=== PATIENT | male | born 1970 | race African-American/Black ===

== ENCOUNTER 2023-03-03 07:22 | Emergency (ER) | payer OTHER ==
--- OUTSIDE RECORDS SUMMARY | 2023-03-03 07:28 | XMS REPORT | Continuity of Care Document ---
:1970 Author Organization [facility] t Address [address] [facility] [place] [address] Care Team Providers Name Role Phone Teddy Irvin Primary Care Physician Carleen Lemus DO Attending Clinician CARLEEN LEMUS Attending Clinician Unavailable Doctor Unassigned, [place] Attending Clinician Unavailable Raulito DENNISON Attending Clinician Unavailable Raulito Cota Attending Clinician SARAH CHAVIS Attending Clinician Unavailable Sarah Chavis MD Attending Clinician CHET GAONA Attending Clinician Unavailable Raulito DENNISON Admitting Clinician Unavailable CHET GAONA Admitting Clinician Unavailable Payers Payer Name Policy Type Policy Number Effective Date Expiration Date S [facility] MEDICAID SSI PENDING 2021 PENDING 00:00:00 Problems Condition Condition Condition Status Onset Resolution Last Treating Co mments Source Name Details Category Date Date Treatment Clinician Date No known No known Disease Unive rs active active ity of problems problems [facility] Allergies, Adverse Reactions, Alerts Allergy Allergy Status Severity Reaction(s) Onset Inactive Treating Comm ents Source Name Type Date Date Clinician Morphine Propensi Active and ty to 9-12 Related adverse 00:00: - CLASS reaction 00 to drug Morphine Propensi Active ty to 4-12 adverse 00:00: reaction 00 to drug MORPHINE DRUG Active HYPERTENSION 2017-09 Un russell INGREDI 0-22 ity of 00:00: [place] 00 Medical Branch Morphine Propensi Active Hypertension 2017-09 Univers ty to 0-22 ity of adverse 00:00: [place] reaction 00 Medical s Branch Social History Social Habit Start Date Stop Date Quantity Comments Source Exposure to 2022-09-13 2022-09-23 Not sure [facility] SARS-CoV-2 (event) 00:00:00 16:06:00 Medica l Branch Sex Assigned At [birth year] [facility] 00:00:00 00:00:00 Medical Branch Smoking Status Start Date Stop Date Source Tobacco smoking consumption [facility] Medical unknown Branch Medications Ordered Filled Start Stop Current Ordering Indication Dosage Frequency Signature Comments Components Source Medication Medication Date Date Medication? Clinician (SIG) Name Name Dose 2021-09 No Unknown 2-14 00:00: 00 Dose 2021-09 No Unknown 2-14 00:00: 00 methylpredn 2021-2021- No 125mg 125 mg, U nivers isolone sod 5-04 05-04 Intramuscu i ty of succ 02:15: 01:20 lar, ONCE, [place] (SOLU-MEDRO 00 :00 1 dose, On Me dical L) 01/08/22 Branch injection at 2115, 125 mg HERMES Dose 0 No Unknown 4-16 00:00: 00 carvedilol 2021-0 No 1mg 25 mg 4-16 tablet 00:00: 00 Dose 2021-0 No Unknown 4-16 00:00: 00 Dose 2021-0 No Unknown 4-16 00:00: 00 Entresto 24 0 No 1mg mg-26 mg 4-16 tablet 00:00: 00 carvedilol 2021-0 No 1mg 25 mg 4-16 tablet 00:00: 00 Dose 2021-0 No Unknown 3-15 00:00: 00 Dose 2021-0 No Unknown 3-15 00:00: 00 Dose 2021-0 No Unknown 3-15 00:00: 00 Dose 2021-0 No Unknown 3-15 00:00: 00 Dose 2021-0 No Unknown 3-15 00:00: 00 Dose 2021-0 No Unknown 3-15 00:00: 00 Dose 2021-0 No Unknown 3-15 00:00: 00 Dose 2021-0 No Unknown 3-15 00:00: 00 Dose 2021-0 No Unknown 3-15 00:00: 00 amoxicillin 2020-09 Yes [id number] 500mg Take 1 Univers 500 mg 2-24 capsule by ity of capsule 00:00: mouth (three) Medical times Branch daily. benzonatate 2020-09 Yes [id number] 100mg Take 1 Univers 100 mg 2-24 capsule by ity of capsule 00:00: mouth (three) Medical times Branch daily as needed for Cough. amoxicillin 2020-09 Yes [id number] 500mg Take 1 Univers 500 mg 2-24 capsule by ity of capsule 00:00: mouth (three) Medical times Branch daily. benzonatate 2020-09 Yes [id number] 100mg Take 1 Univers 100 mg 2-24 capsule by ity of capsule 00:00: mouth (three) Medical times Branch daily as needed for Cough. amoxicillin 2020-09 Yes [id number] 500mg Take 1 Univers 500 mg 2-24 capsule by ity of capsule 00:00: mouth (three) Medical times Branch daily. benzonatate 2020-09 Yes [id number] 100mg Take 1 Univers 100 mg 2-24 capsule by ity of capsule 00:00: mouth (three) Medical times Branch daily as needed for Cough. amoxicillin 2020-09 Yes [id number] 500mg Take 1 Univers 500 mg 2-24 capsule by ity of capsule 00:00: mouth (three) Medical times Branch daily. benzonatate 2020-09 Yes [id number] 100mg Take 1 Univers 100 mg 2-24 capsule by ity of capsule 00:00: mouth (three) Medical times Branch daily as needed for Cough. carvedilol No 1mg 25 mg 9-15 tablet 00:00: 00 Dose 2020-0 No Unknown 9-15 00:00: 00 Dose 2021-0 No Unknown 9-15 00:00: 00 Dose 2021-0 No Unknown 9-15 00:00: 00 carvedilol 2021-0 No 1mg 25 mg 9-15 tablet 00:00: 00 Entresto 24 2021-0 No 1mg mg-26 mg 9-15 tablet 00:00: 00 Dose 2021-0 No Unknown 7-14 00:00: 00 cyclobenzap 2021-0 No 1mg rine 10 mg 7-14 tablet 00:00: 00 Dose 2021-0 No Unknown 7-14 00:00: 00 Dose 2021-0 No Unknown 7-14 00:00: 00 prednisone 2021-0 No 1mg 20 mg 7-14 tablet 00:00: 00 cyclobenzap 2021-0 No 1mg rine 10 mg 7-14 tablet 00:00: 00 carvedilol 2021-0 No 1mg 25 mg 3-18 tablet 00:00: 00 carvedilol 2021-0 No 1mg 25 mg 3-18 tablet 00:00: 00 carvedilol 2021-0 No 1mg 25 mg 3-18 tablet 00:00: 00 carvedilol 2021-0 No 1mg 25 mg 2-04 tablet 00:00: 00 carvedilol 2021-0 No 1mg 25 mg 2-04 tablet 00:00: 00 carvedilol 2021-0 No 1mg 25 mg 2-04 tablet 00:00: 00 lisinopril 2020-1 No 1mg 20 mg 2-28 tablet 00:00: 00 carvedilol 2020-1 No 1mg 25 mg 2-28 tablet 00:00: 00 omeprazole 2020-1 No 1mg 40 mg 2-28 capsule,del 00:00: ayed 00 release lisinopril 2020-1 No 1mg 20 mg 2-28 tablet 00:00: 00 lisinopril 2020-1 No 1mg 20 mg 2-28 tablet 00:00: 00 carvedilol 2020-1 No 1mg 25 mg 2-28 tablet 00:00: 00 Dose 2020-1 No Unknown 2-28 00:00: 00 carvedilol 2020-1 No 1mg 25 mg 2-28 tablet 00:00: 00 omeprazole 2020-1 No 1mg 40 mg 2-28 capsule,del 00:00: ayed 00 release lisinopril 2020-1 No 1mg 20 mg 1-13 tablet 00:00: 00 carvedilol 2020-1 No 1mg 25 mg 1-13 tablet 00:00: 00 omeprazole 2020-1 No 1mg 40 mg 1-13 capsule,del 00:00: ayed 00 release lisinopril 2020-1 No 1mg 20 mg 1-13 tablet 00:00: 00 carvedilol 2020-1 No 1mg 25 mg 1-13 tablet 00:00: 00 omeprazole 2020-1 No 1mg 40 mg 1-13 capsule,del 00:00: ayed 00 release lisinopril 2020-1 No 1mg 20 mg 1-13 tablet 00:00: 00 carvedilol 2020-1 No 1mg 25 mg 1-13 tablet 00:00: 00 omeprazole 2019-1 No 1mg 40 mg 1-13 capsule,del 00:00: ayed 00 release omeprazole 2019-1 No 1mg 40 mg 0-13 capsule,del 00:00: ayed 00 release omeprazole 2019-1 No 1mg 40 mg 0-13 capsule,del 00:00: ayed 00 release omeprazole 2020-1 No 1mg 40 mg 0-13 capsule,del 00:00: ayed 00 release lisinopril 2020-0 No 1mg 20 mg 7-08 tablet 00:00: 00 carvedilol 2020-0 No 1mg 25 mg 7-08 tablet 00:00: 00 lisinopril 2020-0 No 1mg 20 mg 7-08 tablet 00:00: 00 carvedilol 2020-0 No 1mg 25 mg 7-08 tablet 00:00: 00 lisinopril 2020-0 No 1mg 20 mg 7-08 tablet 00:00: 00 carvedilol 2020-0 No 1mg 25 mg 7-08 tablet 00:00: 00 lisinopril 2020-0 No 1mg 20 mg 5-27 tablet 00:00: 00 carvedilol 2020-0 No 1mg 25 mg 5-27 tablet 00:00: 00 lisinopril 2020-0 No 1mg 20 mg 5-27 tablet 00:00: 00 carvedilol 2020-0 No 1mg 25 mg 5-27 tablet 00:00: 00 lisinopril 2020-0 No 1mg 20 mg 5-27 tablet 00:00: 00 carvedilol 2020-0 No 1mg 25 mg 5-27 tablet 00:00: 00 carvedilol 2019-0 No 1mg 25 mg 3-24 tablet 00:00: 00 lisinopril 2020-0 No 1mg 20 mg 3-24 tablet 00:00: 00 carvedilol 2020-0 No 1mg 25 mg 3-24 tablet 00:00: 00 lisinopril 2020-0 No 1mg 20 mg 3-24 tablet 00:00: 00 carvedilol 2020-0 No 1mg 25 mg 3-24 tablet 00:00: 00 lisinopril 2020-0 No 1mg 20 mg 3-24 tablet 00:00: 00 carvedilol 2018-09 Yes [id number] 25mg Take 1 Univers 25 mg 2-01 tablet by ity of tablet 00:00: mouth 2 00 (two) Medical times Branch daily with meals. lisinopril 2018-09 Yes [id number] 30mg Take 1 Univers 30 mg 2-01 tablet by ity of tablet 00:00: mouth [place] 00 daily. Medical Branch carvedilol 2018-09 Yes [id number] 25mg Take 1 Univers 25 mg 2-01 tablet by ity of tablet 00:00: mouth 2 00 (two) Medical times Branch daily with meals. lisinopril 2018-09 Yes [id number] 30mg Take 1 Univers 30 mg 2-01 tablet by ity of tablet 00:00: mouth [place] 00 daily. Medical Branch carvedilol 2018-09 Yes [id number] 25mg Take 1 Univers 25 mg 2-01 tablet by ity of tablet 00:00: mouth 2 00 (two) Medical times Branch daily with meals. lisinopril 2018-09 Yes [id number] 30mg Take 1 Univers 30 mg 2-01 tablet by ity of tablet 00:00: mouth [place] 00 daily. Medical Branch carvedilol 2018-09 Yes [id number] 25mg Take 1 Univers 25 mg 2-01 tablet by ity of tablet 00:00: mouth 2 [place] 00 (two) Medical times Branch daily with meals. lisinopril 2018-09 Yes [id number] 30mg Take 1 Univers 30 mg 2-01 tablet by ity of tablet 00:00: mouth [place] 00 daily. Medical Branch hydrochloro 2019-0 No 1mg thiazide 25 6-18 mg tablet 00:00: 00 carvedilol 2019-0 No 1mg 25 mg 6-18 tablet 00:00: 00 lisinopril 2019-0 No 1mg 20 mg 6-18 tablet 00:00: 00 hydrochloro 2019-0 No 1mg thiazide 25 6-18 mg tablet 00:00: 00 carvedilol 2019-0 No 1mg 25 mg 6-18 tablet 00:00: 00 lisinopril 2019-0 No 1mg 20 mg 6-18 tablet 00:00: 00 hydrochloro 2019-0 No 1mg thiazide 25 6-18 mg tablet 00:00: 00 carvedilol 2019-0 No 1mg 25 mg 6-18 tablet 00:00: 00 lisinopril 2019-0 No 1mg 20 mg 6-18 tablet 00:00: 00 hydrochloro 2019-0 No 1mg thiazide 25 5-09 mg tablet 00:00: 00 carvedilol 2019-0 No 1mg 25 mg 5-09 tablet 00:00: 00 hydrochloro 2019-0 No 1mg thiazide 25 5-09 mg tablet 00:00: 00 carvedilol 2019-0 No 1mg 25 mg 5-09 tablet 00:00: 00 lisinopril 2019-0 No 1mg 20 mg 5-09 tablet 00:00: 00 lisinopril 2019-0 No 1mg 20 mg 5-09 tablet 00:00: 00 hydrochloro 2019-0 No 1mg thiazide 25 5-09 mg tablet 00:00: 00 carvedilol 2019-0 No 1mg 25 mg 5-09 tablet 00:00: 00 lisinopril 2019-0 No 1mg 20 mg 5-09 tablet 00:00: 00 pantoprazol 2018-1 No 1mg e 40 mg 1-20 tablet,wm 00:00: yed release 00 metronidazo 2018-1 No 1mg le 500 mg 1-20 tablet 00:00: 00 pantoprazol 2018-1 No 1mg e 40 mg 1-20 tablet,wm 00:00: yed release 00 metronidazo 2018-1 No 1mg le 500 mg 1-20 tablet 00:00: 00 pantoprazol 2018-1 No 1mg e 40 mg 1-20 tablet,wm 00:00: yed release 00 metronidazo 2018-1 No 1mg le 500 mg 1-20 tablet 00:00: 00 hydrochloro 2017-09 No 1mg thiazide 25 1-14 mg tablet 00:00: 00 carvedilol 2017-09 No 1mg 25 mg 1-14 tablet 00:00: 00 lisinopril 2017-09 No 1mg 20 mg 1-14 tablet 00:00: 00 cyclobenzap 2017-09 No 1mg rine 10 mg 1-14 tablet 00:00: 00 ciprofloxac 2017-09 No 1mg in 500 mg 1-14 tablet 00:00: 00 dicyclomine 2017-09 No 1mg 20 mg 1-14 tablet 00:00: 00 DOK 100 mg 2017-09 No 1mg capsule 1-14 00:00: 00 hydrochloro 2017-09 No 1mg thiazide 25 1-14 mg tablet 00:00: 00 carvedilol 2017-09 No 1mg 25 mg 1-14 tablet 00:00: 00 lisinopril 2017-09 No 1mg 20 mg 1-14 tablet 00:00: 00 cyclobenzap 2017-09 No 1mg rine 10 mg 1-14 tablet 00:00: 00 ciprofloxac 2017-09 No 1mg in 500 mg 1-14 tablet 00:00: 00 dicyclomine 2017-09 No 1mg 20 mg 1-14 tablet 00:00: 00 DOK 100 mg 2017-09 No 1mg capsule 1-14 00:00: 00 hydrochloro 2017-09 No 1mg thiazide 25 1-14 mg tablet 00:00: 00 carvedilol 2017-09 No 1mg 25 mg 1-14 tablet 00:00: 00 lisinopril 2017-09 No 1mg 20 mg 1-14 tablet 00:00: 00 cyclobenzap 2017-09 No 1mg rine 10 mg 1-14 tablet 00:00: 00 ciprofloxac 2017-09 No 1mg in 500 mg 1-14 tablet 00:00: 00 dicyclomine 2017-09 No 1mg 20 mg 1-14 tablet 00:00: 00 Dose 2018- No Unknown 1-14 00:00: 00 dicyclomine 2017-09 Yes 20mg Take 1 Univ ers (BENTYL) 20 1-10 tablet by ity of mg tablet 00:00: mouth 4 [place] 00 (four) Medical times Branch daily. dicyclomine 2017-09 Yes 20mg Take 1 Univ ers (BENTYL) 20 1-10 tablet by ity of mg tablet 00:00: mouth 4 (four) Medical times Branch daily. dicyclomine 2017-09 Yes 20mg Take 1 Univ ers (BENTYL) 20 1-10 tablet by ity of mg tablet 00:00: mouth 4 (four) Medical times Branch daily. dicyclomine 2017-09 Yes 20mg Take 1 Univ ers (BENTYL) 20 1-10 tablet by ity of mg tablet 00:00: mouth 4 (four) Medical times Branch daily. atorvastati 2017-09 Yes Take by Uni vers n calcium 0-22 mouth. ity of (ATORVASTAT 11:11: [place] IN ORAL) [address] [place] [address] Branch atorvastati 2017-09 Yes Take by Uni vers n calcium 0-22 mouth. ity of (ATORVASTAT 11:11: [place] IN ORAL) [address] [place] [address] atorvastati 2017-09 Yes Take by Uni vers n calcium 0-22 mouth. ity of (ATORVASTAT 11:11: [place] IN ORAL) [address] [place] [address] atorvastati 2017-09 Yes Take by Uni vers n calcium 0-22 mouth. ity of (ATORVASTAT 11:11: [place] IN ORAL) [address] [place] [address] aspirin 81 2017-09 Yes 81mg Take 81 mg U nivers mg chewable 0-22 by mouth ity of tablet 11:08: daily. [address] aspirin 81 2017-09 Yes 81mg Take 81 mg U nivers mg chewable 0-22 by mouth ity of tablet 11:08: daily. [address] aspirin 81 2017-09 Yes 81mg Take 81 mg U nivers mg chewable 0-22 by mouth ity of tablet 11:08: daily. [address] aspirin 81 2017-09 Yes 81mg Take 81 mg U nivers mg chewable 0-22 by mouth ity of tablet 11:08: daily. [address] lisinopril 2017-09 Yes 30mg Take 30 mg U nivers 30 mg 0-22 by mouth ity of tablet 11:08: daily. [address] HYDROCHLORO 2017-09 Yes 25mg Take 25 mg Univers THIAZIDE 0-22 by mouth. ity of ORAL 11:08: [address] SERTraline 2017-09 Yes 50mg Take 50 mg U nivers (ZOLOFT) 50 0-22 by mouth ity of mg tablet 11:08: daily. [address] risperiDONE 2017-09 Yes 2mg Take 2 mg U nivers (RISPERDAL 0-22 by mouth ity o f M-TAB) 2 mg 11:08: at [facility] 05 bedtime. [facility] carvedilol 2017-09 Yes 25mg Take 25 mg U nivers (COREG) 25 0-22 by mouth 2 ity of mg tablet 11:08: (two) [address] daily with Branch meals. lisinopril 2017-09 Yes 30mg Take 30 mg U nivers 30 mg 0-22 by mouth ity of tablet 11:08: daily. [address] HYDROCHLORO 2017-09 Yes 25mg Take 25 mg Univers THIAZIDE 0-22 by mouth. ity of ORAL 11:08: [address] SERTraline 2017-09 Yes 50mg Take 50 mg U nivers (ZOLOFT) 50 0-22 by mouth ity of mg tablet 11:08: daily. [address] risperiDONE 2017-09 Yes 2mg Take 2 mg U nivers (RISPERDAL 0-22 by mouth ity o f M-TAB) 2 mg 11:08: at [facility] 05 bedtime. [facility] carvedilol 2017-09 Yes 25mg Take 25 mg U nivers (COREG) 25 0-22 by mouth 2 ity of mg tablet 11:08: (two) [address] daily with Branch meals. lisinopril 2017-09 Yes 30mg Take 30 mg U nivers 30 mg 0-22 by mouth ity of tablet 11:08: daily. [address] HYDROCHLORO 2017-09 Yes 25mg Take 25 mg Univers THIAZIDE 0-22 by mouth. ity of ORAL 11:08: [address] SERTraline 2017-09 Yes 50mg Take 50 mg U nivers (ZOLOFT) 50 0-22 by mouth ity of mg tablet 11:08: daily. [address] risperiDONE 2017-09 Yes 2mg Take 2 mg U nivers (RISPERDAL 0-22 by mouth ity o f M-TAB) 2 mg 11:08: at [facility] 05 bedtime. Medical Branch carvedilol 2017-09 Yes 25mg Take 25 mg U nivers (COREG) 25 0-22 by mouth 2 ity of mg tablet 11:08: (two) [address] Medical daily with Branch meals. lisinopril 2017-09 Yes 30mg Take 30 mg U nivers 30 mg 0-22 by mouth ity of tablet 11:08: daily. [address] HYDROCHLORO 2017-09 Yes 25mg Take 25 mg Univers THIAZIDE 0-22 by mouth. ity of ORAL 11:08: [address] SERTraline 2017-09 Yes 50mg Take 50 mg U nivers (ZOLOFT) 50 0-22 by mouth ity of mg tablet 11:08: daily. [address] risperiDONE 2017-09 Yes 2mg Take 2 mg U nivers (RISPERDAL 0-22 by mouth ity o f M-TAB) 2 mg 11:08: at [facility] [address] [facility] Branch carvedilol 2017-09 Yes 25mg Take 25 mg U nivers (COREG) 25 0-22 by mouth 2 ity of mg tablet 11:08: (two) [address] daily with Branch meals. lisinopril 2018-0 No 1mg 20 mg 8-28 tablet 00:00: 00 carvedilol 2018-0 No 1mg 25 mg 8-28 tablet 00:00: 00 hydrochloro 2018-0 No 1mg thiazide 25 8-28 mg tablet 00:00: 00 hydrochloro 2018-0 No 1mg thiazide 25 8-28 mg tablet 00:00: 00 carvedilol 2018-0 No 1mg 25 mg 8-28 tablet 00:00: 00 lisinopril 2018-0 No 1mg 20 mg 8-28 tablet 00:00: 00 lisinopril 2018-0 No 1mg 20 mg 8-28 tablet 00:00: 00 carvedilol 2018-0 No 1mg 25 mg 8-28 tablet 00:00: 00 hydrochloro 2018-0 No 1mg thiazide 25 8-28 mg tablet 00:00: 00 hydrochloro 2018-0 No 1mg thiazide 25 8-28 mg tablet 00:00: 00 carvedilol 2018-0 No 1mg 25 mg 8-28 tablet 00:00: 00 lisinopril 2018-0 No 1mg 20 mg 8-28 tablet 00:00: 00 lisinopril 2018-0 No 1mg 20 mg 8-28 tablet 00:00: 00 carvedilol 2018-0 No 1mg 25 mg 8-28 tablet 00:00: 00 hydrochloro 2018-0 No 1mg thiazide 25 8-28 mg tablet 00:00: 00 hydrochloro 2018-0 No 1mg thiazide 25 8-28 mg tablet 00:00: 00 carvedilol 2018-0 No 1mg 25 mg 8-28 tablet 00:00: 00 lisinopril 2018-0 No 1mg 20 mg 8-28 tablet 00:00: 00 Immunizations Ordered Filled Immunization Date Status Comments [facility] e Immunization Name Name SARS-COV-2 COVID-19 2020-12-21 Completed Unive rsity of PFIZER VACCINE 00:00:00 [facility] SARS-COV-2 COVID-19 2020-12-21 Completed Unive rsity of PFIZER VACCINE 00:00:00 [facility] SARS-COV-2 COVID-19 2020-12-21 Completed Unive rsity of PFIZER VACCINE 00:00:00 [facility] SARS-COV-2 COVID-19 2020-12-21 Completed Unive rsity of PFIZER VACCINE 00:00:00 [facility] SARS-COV-2 COVID-19 2020-11-30 Completed Unive rsity of PFIZER VACCINE 00:00:00 [facility] SARS-COV-2 COVID-19 2020-11-30 Completed Unive rsity of PFIZER VACCINE 00:00:00 [facility] SARS-COV-2 COVID-19 2020-11-30 Completed Unive rsity of PFIZER VACCINE 00:00:00 [facility] SARS-COV-2 COVID-19 2020-11-30 Completed Unive rsity of PFIZER VACCINE 00:00:00 [facility] Vital Signs Vital Name Observation Time Observation Value Comments Source Systolic blood 2022-09-23 22:08:00 138 mm[Hg] Univer sity of pressure [facility] Diastolic blood 2022-09-23 22:08:00 78 mm[Hg] Unive rsity of pressure [facility] Heart rate 2022-09-23 22:08:00 78 /min [facility] Body temperature 2022-09-23 22:08:00 36.61 [place] [facility] [place] [facility] Respiratory rate 2022-09-23 22:08:00 18 /min [facility] [place] [facility] Body height 2022-09-23 22:08:00 177.8 cm [facility] [place] [facility] Body weight 2022-09-23 22:08:00 75.751 kg [facility] [place] [facility] BMI 2022-09-23 22:08:00 23.96 kg/m2 [facility] [place] [facility] Oxygen saturation in 2022-09-23 22:08:00 99 /min University of Arterial blood by [facility] Pulse oximetry Branch Systolic blood 2022-01-09 00:01:00 110 mm[Hg] Univer sity of pressure [place] [facility] Diastolic blood 2022-01-09 00:01:00 77 mm[Hg] Unive rsity of pressure [place] [facility] Heart rate 2022-01-09 00:01:00 77 /min [facility] [place] [facility] Respiratory rate 2022-01-09 00:01:00 14 /min [facility] [place] [facility] Oxygen saturation in 2022-01-09 00:01:00 98 /min University of Arterial blood by [facility] Pulse oximetry Branch Body temperature 2022-01-08 22:08:00 36.61 [place] [facility] [place] [facility] Body height 2022-01-08 22:08:00 180.3 cm [facility] [place] [facility] Body weight 2022-01-08 22:08:00 76.204 kg [facility] [place] [facility] BMI 2022-01-08 22:08:00 23.43 kg/m2 [facility] [place] [facility] Systolic blood 2021-08-31 08:17:00 132 mm[Hg] Univer sity of pressure [place] [facility] Diastolic blood 2021-08-31 08:17:00 10 mm[Hg] Unive rsity of pressure [place] [facility] Heart rate 2021-08-31 08:17:00 100 /min [facility] [place] [facility] Body temperature 2021-08-31 08:17:00 37 [place] [facility] [place] [facility] Respiratory rate 2021-08-31 08:17:00 20 /min [facility] [place] [facility] Body weight 2021-08-31 08:17:00 74.844 kg [facility] BMI 2021-08-31 08:17:00 23.01 kg/m2 [facility] Oxygen saturation in 2021-08-31 08:17:00 99 /min [facility] blood by [facility] Pulse oximetry Branch BP Systolic 2022-08-21 15:29:00 101 mm[Hg] BP Diastolic 2022-08-21 15:29:00 63 mm[Hg] Weight Measured 2022-08-21 15:29:00 178.20 pounds Height Measured 2022-08-21 15:29:00 72.00 inches Body Temperature 2022-08-21 15:29:00 97.50 degrees Heart Rate 2022-08-21 15:29:00 84.00 /min Respiratory Rate 2022-08-21 15:29:00 24.00 /min BP Systolic 2022-05-20 13:30:00 119 mm[Hg] BP Diastolic 2022-05-20 13:30:00 79 mm[Hg] Weight Measured 2022-05-20 13:30:00 174.80 pounds Height Measured 2022-05-20 13:30:00 72.00 inches Body Temperature 2022-05-20 13:30:00 97.50 degrees Heart Rate 2022-05-20 13:30:00 78.00 /min Respiratory Rate 2022-05-20 13:30:00 18.00 /min Height Measured 2022-05-01 14:40:00 72.00 inches Body Temperature 2022-05-01 14:40:00 97.40 degrees Heart Rate 2022-05-01 14:40:00 81.00 /min Respiratory Rate 2022-05-01 14:40:00 BP Systolic 2022-05-01 14:40:00 125 mm[Hg] BP Diastolic 2022-05-01 14:40:00 76 mm[Hg] Weight Measured 2022-05-01 14:40:00 177.00 pounds BP Systolic 2021-12-22 13:12:00 119 mm[Hg] BP Diastolic 2021-12-22 13:12:00 82 mm[Hg] Weight Measured 2021-12-22 13:12:00 171.20 pounds Height Measured 2021-12-22 13:12:00 72.00 inches Body Temperature 2021-12-22 13:12:00 98.40 degrees Heart Rate 2021-12-22 13:12:00 83.00 /min Respiratory Rate 2021-12-22 13:12:00 BP Systolic 2021-06-12 17:07:00 125 mm[Hg] BP Diastolic 2021-06-12 17:07:00 73 mm[Hg] Weight Measured 2021-06-12 17:07:00 171.20 pounds Height Measured 2021-06-12 17:07:00 72.00 inches Body Temperature 2021-06-12 17:07:00 98.40 degrees Heart Rate 2021-06-12 17:07:00 88.00 /min Respiratory Rate 2021-06-12 17:07:00 17.00 /min BP Systolic 2021-05-23 13:35:00 101 mm[Hg] BP Diastolic 2021-05-23 13:35:00 65 mm[Hg] Weight Measured 2021-05-23 13:35:00 168.20 pounds Height Measured 2021-05-23 13:35:00 72.00 inches Body Temperature 2021-05-23 13:35:00 98.20 degrees Heart Rate 2021-05-23 13:35:00 77.00 /min Respiratory Rate 2021-05-23 13:35:00 19.00 /min BP Systolic 2021-03-21 11:17:00 109 mm[Hg] BP Diastolic 2021-03-21 11:17:00 70 mm[Hg] Weight Measured 2021-03-21 11:17:00 166.80 pounds Height Measured 2021-03-21 11:17:00 72.00 inches Body Temperature 2021-03-21 11:17:00 98.40 degrees Heart Rate 2021-03-21 11:17:00 75.00 /min Respiratory Rate 2021-03-21 11:17:00 17.00 /min BP Systolic 2020-12-27 15:51:00 112 mm[Hg] BP Diastolic 2020-12-27 15:51:00 72 mm[Hg] Weight Measured 2020-12-27 15:51:00 174.00 pounds Height Measured 2020-12-27 15:51:00 72.00 inches Body Temperature 2020-12-27 15:51:00 98.30 degrees Heart Rate 2020-12-27 15:51:00 76.00 /min Respiratory Rate 2020-12-27 15:51:00 17.00 /min BP Systolic 2020-11-23 16:54:00 113 mm[Hg] BP Diastolic 2020-11-23 16:54:00 75 mm[Hg] Weight Measured 2020-11-23 16:54:00 171.60 pounds Height Measured 2020-11-23 16:54:00 72.00 inches Body Temperature 2020-11-23 16:54:00 98.70 degrees Heart Rate 2020-11-23 16:54:00 78.00 /min Respiratory Rate 2020-11-23 16:54:00 18.00 /min BP Systolic 2020-10-17 15:20:00 119 mm[Hg] BP Diastolic 2020-10-17 15:20:00 83 mm[Hg] Weight Measured 2020-10-17 15:20:00 170.40 pounds Height Measured 2020-10-17 15:20:00 72.00 inches Body Temperature 2020-10-17 15:20:00 98.50 degrees Heart Rate 2020-10-17 15:20:00 86.00 /min Respiratory Rate 2020-10-17 15:20:00 16.00 /min BP Systolic 2020-06-20 10:09:00 118 mm[Hg] BP Diastolic 2020-06-20 10:09:00 80 mm[Hg] Weight Measured 2020-06-20 10:09:00 178.40 pounds Height Measured 2020-06-20 10:09:00 72.00 inches Body Temperature 2020-06-20 10:09:00 98.50 degrees Heart Rate 2020-06-20 10:09:00 83.00 /min Respiratory Rate 2020-06-20 10:09:00 18.00 /min BP Systolic 2020-02-02 10:36:00 138 mm[Hg] BP Diastolic 2020-02-02 10:36:00 82 mm[Hg] Weight Measured 2020-02-02 10:36:00 180.20 pounds Height Measured 2020-02-02 10:36:00 72.00 inches Body Temperature 2020-02-02 10:36:00 98.40 degrees Heart Rate 2020-02-02 10:36:00 76.00 /min Respiratory Rate 2020-02-02 10:36:00 16.00 /min Procedures Procedure Date / Time Performed Performing Clinician [facility] e CONSENT/REFUSAL FOR 2022-09-23 22:00:55 Doctor Unassigned, No [facility] [place] DIAGNOSIS AND Name Medical Branch TREATMENT REFERRAL- 2022-05-11 05:01:00 Doctor Unassigned, No [facility] [place] REQUEST/RESPONSE Name Medical Branch EKG-12 LEAD 2022-01-09 01:08:24 [facility] o f [facility] XR CHEST 1 VW 2022-01-08 22:35:00 [facility] o f [place] [facility] CONSENT/REFUSAL FOR 2022-01-08 22:03:37 Doctor Unassigned, No [facility] [place] DIAGNOSIS AND Name Medical Branch TREATMENT RAPID STREP SCREEN 2021-08-31 08:41:00 Sarah Chavis [facility] FOR GROUP A Medical Branch COVID-19 (ID NOW 2021-08-31 08:41:00 Sarah Chavis [facility] RAPID TESTING) Medical Branch NOTICE OF PRIVACY 2021-08-31 07:59:25 Doctor Unassigned, No [facility] [place] PRACTICES Name [facility] CONSENT/REFUSAL FOR 2021-08-31 07:58:09 Doctor Unassigned, No [facility] [place] DIAGNOSIS AND Name Medical [facility] TREATMENT Plan of Care Planned Activity Planned Date Details Comments Source Goal Plan of Care Note [code = 36516-3] Goal Plan of Care Note [code = 02691-1] Goal Plan of Care Note [code = 46852-2] Goal Plan of Care Note [code = 05066-9] Goal Plan of Care Note [code = 04789-2] Goal Plan of Care Note [code = 07438-8] Goal Plan of Care Note [code = 46795-6] Goal Plan of Care Note [code = 25141-9] Goal Plan of Care Note [code = 21428-7] Goal Plan of Care Note [code = 71972-3] Goal Plan of Care Note [code = 74121-5] Goal Plan of Care Note [code = 77790-6] Goal Plan of Care Note [code = 97109-4] Goal Plan of Care Note [code = 26184-9] Goal Plan of Care Note [code = 20130-9] Goal Plan of Care Note [code = 81868-6] Goal Plan of Care Note [code = 38531-5] Goal Plan of Care Note [code = 19046-8] Goal Plan of Care Note [code = 91175-0] Goal Plan of Care Note [code = 75828-9] Goal Plan of Care Note [code = 06364-1] Goal Plan of Care Note [code = 58543-0] Goal Plan of Care Note [code = 28195-4] Goal Plan of Care Note [code = 34790-4] Goal Plan of Care Note [code = 49181-5] Goal Plan of Care Note [code = 21358-1] Goal Plan of Care Note [code = 13582-7] Goal Plan of Care Note [code = 35691-7] Goal Plan of Care Note [code = 92586-2] Goal Plan of Care Note [code = 30414-9] Goal Plan of Care Note [code = 46328-6] Goal Plan of Care Note [code = 43970-5] Goal Plan of Care Note [code = 89084-1] Goal Plan of Care Note [code = 36738-2] Goal Plan of Care Note [code = 81600-2] Goal Plan of Care Note [code = 92277-5] Goal Plan of Care Note [code = 97810-2] Goal Plan of Care Note [code = 45879-1] Goal Plan of Care Note [code = 16155-2] Goal Plan of Care Note [code = 10220-8] Goal Plan of Care Note [code = 24099-1] Goal Plan of Care Note [code = 19303-5] Goal Plan of Care Note [code = 58506-1] Goal Plan of Care Note [code = 39121-7] Goal Plan of Care Note [code = 53632-3] Goal Plan of Care Note [code = 80249-4] Goal Plan of Care Note [code = 48374-2] Goal Plan of Care Note [code = 60322-0] Goal Plan of Care Note [code = 95862-5] Goal Plan of Care Note [code = 47096-0] Goal Plan of Care Note [code = 81976-5] Goal Plan of Care Note [code = 16196-0] Goal Plan of Care Note [code = 74143-5] Goal Plan of Care Note [code = 50912-8] Goal Plan of Care Note [code = 22328-8] Goal Plan of Care Note [code = 45978-2] Goal Plan of Care Note [code = 91599-0] Goal Plan of Care Note [code = 35679-4] Goal Plan of Care Note [code = 98723-4] Goal Plan of Care Note [code = 91210-4] Goal Plan of Care Note [code = 61660-4] Goal Plan of Care Note [code = 23673-6] Goal Plan of Care Note [code = 12476-5] Goal Plan of Care Note [code = 96643-4] Goal Plan of Care Note [code = 01332-2] Goal Plan of Care Note [code = 30382-0] Goal Plan of Care Note [code = 98451-3] Goal Plan of Care Note [code = 80402-2] Goal Plan of Care Note [code = 18715-6] Goal Plan of Care Note [code = 32399-9] Goal Plan of Care Note [code = 38532-4] Goal Plan of Care Note [code = 51516-3] Goal Plan of Care Note [code = 11373-4] Encounters Start End Encounter Admission Attending Care Care Encounter Source Date/Time Date/Time Type Type Clinicians Facility Department ID 2023-02-25 2023-02-25 Outpatient [facility] [id number] [place] 08:21:28 08:21:[address] 2022-11-09 2022-11-09 Outpatient [facility] [id number] [place] 09:56:52 09:56:[address] 2022-09-23 2022-09-23 Emergency AIMEE Lemus [id number] Univers 16:10:00 16:37:00 Carleen ALVARADO [id number] [facility] 4.2.7.2.686 [facility] [id number] [facility] 084 Branch 2022-09-23 2022-09-23 Emergency X AIMEE LEMUS ERT [id number] Univers 16:10:00 16:37:00 CARLEEN ity of [facility] 2022-08-21 2022-08-21 Outpatient SFA SFA [id number] [place] 15:28:31 15:28:[address] 2022-08-21 2022-08-21 Outpatient [id number]- [id number] 3k6n13-i 00:00:00 00:00:00 Visit k37w-6m2g 11b-4a3b-9 -60g6-h9u 9q6-t4k93v 92zkp4d47 dc5c97 2022-05-20 2022-05-20 Outpatient [id number]- [id number] c3 26sj12-t 00:00:00 00:00:00 Visit g14l-991x 56b-498c-b -my81-9y5 g99-3e0189 [id number] 3132-09-03 2022-05-11 Orders Doctor AWAIS [id number] [id number] Univers 00:00:00 00:00:00 Only Unassigned, PIERCE 350.1.13.10 ity of [facility] 4.2.7.2.686 Vinny as [id number] [facility] 009 Branch 2022-05-01 2022-05-01 Outpatient [id number]- [id number] d0 [id number] 00:00:00 00:00:00 Visit 2959-49f4 959-49f4-b -ua58-772 u16-2023j0 6x91jxao7 3fade6 2022-01-08 2022-01-08 Emergency X Raulito DENNISON [facility] ERT [id number] Univers 17:13:00 20:38:00 ity of [facility] 2022-01-08 2022-01-08 Emergency Raulito Dennison [facility] [id number] [id number] Univers 17:13:00 20:38:00 Linda ALVARADO 350.1.13.10 i ty [facility] 4.2.7.2.686 [place] [facility] [id number] [facility] 084 [place] 2021-08-31 2021-08-31 Emergency X RUTH ANN NVMARY KAY ERT [id number] Univers 02:19:00 03:47:00 SARAH guerra [facility] [place] [facility] 2021-08-31 2021-08-31 Emergency [facility] [id number] [facility] 02:19:00 03:47:00 Sarah ALVARADO 350.1.13.10 i ty parul VELA 4.2.7.2.686 [facility] [id number] [place] [id number] Branch 2019-08-08 2019-08-08 Emergency X JIMENEZ [facility] ERT [id number] [facility] 17:47:33 21:25:00 CHET guerra [facility] Results Test Description Test Time Test Comments Results Result Comments Source HEMOGLOBIN A1c 2023-02-26 03:28:11 Test Item Value Reference Range Interpretation Comme nts HEMOGLOBIN A1c (test code = 5.8 % 4.2-5.6 H [employer] 16902) GUIDELINES FOR HGB A1C: PREDIABETES/INC REASED RISK . . . . . . . 5.7-6.4% DIAGNO SIS OF DIABETES . . . . . . . . . >=6.5% WITH CONFIRMATION OR APPROPRIATE SYM PTOMS NOTE: ASSAY MAY BE AFFECTED BY HEM OGLOBINOPATHIES (SICKLE CELL ANEMIA, S- C DISEASE, OTHERS) OR ARTIFICIALLY LO WERED BY DECREASED RED CELL SURVIVAL ( HEMOLYTIC ANEMIAS, BLOOD LOSS, ETC.). CO NSIDER ALTERNATE TESTING OR LABORATORY C ONSULTATION. COMPREHENSIVE METABOLIC [id number] 03:08:28 Test Item Value Reference Range Interpretation Comments GLUCOSE (test code = 92 MG/DL 70-99 2216) BUN (test code = 15 MG/DL -2207) CREATININE (test 1.04 MG/DL 0.80-1.40 code = 2214) eGFR (2020 CKD-EPI) 87 >60 (test code = 84126) ML/MIN/1.73 CALC BUN/CREAT (test 14 RATIO 03-05 code = 2235) SODIUM (test code = 141 MEQ/L 917-660 3698) POTASSIUM (test code 4.1 MEQ/L 3.5-5.4 = 2228) CHLORIDE (test code 105 MEQ/L 95-107 = 2215) CARBON DIOXIDE (test 25 MEQ/L 19-31 code = 2206) CALCIUM (test code = 9.2 MG/DL 8.5-10.5 2208) PROTEIN, TOTAL (test 7.5 G/DL 6.1-8.3 code = 2229) ALBUMIN (test code = 4.4 G/DL 3.5-5.2 2200) CALC GLOBULIN (test 3.1 G/DL 1.9-3.7 code = 2240) CALC A/G RATIO (test 1.4 RATIO 1.0-2.6 code = 2234) BILIRUBIN, TOTAL 0.7 MG/DL See_Comment [Automated message] (test code = 220) The [employer] which generated this result transmitted ref erence range: <=1.2. T he reference range was not used to int erpret this result as normal/abnormal . ALKALINE PHOSPHATASE 55 U/L 40-121 (test code = 2203) AST (test code = 13 U/L 9-50 2217) ALT (test code = 13 U/L 5-50 UNLESS OTH ERWISE 2218) INDICATED, ALL TESTING PERFORM [facility], [id number] [place] [address] DIRECTOR: Zoe MCCORD FATOUMATA NUMBER [id number] CAP ACCREDITATION N O. [id number] LIPID [id number] 03:08:28 Test Item Value Reference Range Interpretation Comments CHOLESTEROL (test 211 MG/DL <200 H code = 2210) TRIGLYCERIDES (test 88 MG/DL <150 code = 2232) HDL CHOLESTEROL (test 47 MG/DL >39 code = 2220) CALC LDL CHOL (test 145 MG/DL <100 H NOTE: C ALCULATED LDL code = 2237) IS BASED ON BRUCE-ETIENNE METHOD WHICHINCLUDES ADJUSTABLE TRIGLYCERIDE:VL DL CHOLESTEROL RAT IO.THIS FACTOR VARIES B Y MEASURED TRIGLY CERIDE AND NON-HDLCHOL ESTEROL CONCENTRATIONS WITH INCREASED CALCU LATED LDL SEENIN HIGH ER TRIGLYCERIDE OR LOWER NON-HDL SPECIME NS. FOR MOREINFORMATION , SEE CLIENT ANNOUNCE MENT AT [email or web address] RISK RATIO LDL/HDL 3.09 RATIO <3.55 (test code = 2238) HEMOGLOBIN [id number] 09:04:16 Test Item Value Reference Range Interpretation Comments HEMOGLOBIN A1c (test code = 03026) 5.7 % 4.2-5.6 H COMPREHENSIVE METABOLIC [id number] 04:57:20 Test Item Value Reference Range Interpretation Comments GLUCOSE (test code = 92 MG/DL 70-99 2216) BUN (test code = 14 MG/DL 6-20 2207) CREATININE (test 1.04 MG/DL 0.80-1.40 code = 2214) eGFR (2020 CKD-EPI) 87 ML/MIN/1.73 >60 (test code = 79643) CALC BUN/CREAT (test 13 RATIO 6-28 code = 2235) SODIUM (test code = 142 MEQ/L 752-419 5654) POTASSIUM (test code 4.3 MEQ/L 3.5-5.4 = 2227) CHLORIDE (test code 105 MEQ/L 95-107 = 2214) CARBON DIOXIDE (test 24 MEQ/L 19-31 code = 220) CALCIUM (test code = 9.4 MG/DL 8.5-10.5 2208) PROTEIN, TOTAL (test 7.3 G/DL 6.1-8.3 code = 222) ALBUMIN (test code = 4.3 G/DL 3.5-5.2 2200) CALC GLOBULIN (test 3.0 G/DL 1.9-3.7 code = 2240) CALC A/G RATIO (test 1.4 RATIO 1.0-2.6 code = 2234) BILIRUBIN, TOTAL 0.7 MG/DL See_Comment [Automated message] (test code = 2207) The syste m which generated this result transmit malu reference range : <=1.2. The refe rence range was not u sed to interpret th is result as normal/abnormal . ALKALINE PHOSPHATASE 55 U/L 40-118 (test code = 2204) AST (test code = 13 U/L 9-50 2217) ALT (test code = 13 U/L 5-50 2218) LIPID [id number] 04:57:20 Test Item Value Reference Range Interpretation Comments CHOLESTEROL (test 205 MG/DL <200 H code = 2210) TRIGLYCERIDES (test 114 MG/DL <150 code = 2232) HDL CHOLESTEROL (test 45 MG/DL >39 code = 2220) CALC LDL CHOL (test 137 MG/DL <100 H NOTE: C ALCULATED LDL code = 2237) IS BASED ON BRUCE-ETIENNE METHOD WHICHINCLUDES ADJUSTABLE TRIGLYCERIDE:VL DL CHOLESTEROL RAT IO.THIS FACTOR VARIES B Y MEASURED TRIGLY CERIDE AND NON-HDLCHOL ESTEROL CONCENTRATIONS WITH INCREASED CALCU LATED LDL SEENIN HIGH ER TRIGLYCERIDE OR LOWER NON-HDL SPECIME NS. FOR MOREINFORMATION , SEE CLIENT ANNOUNCE MENT AT [email or web address] [email or web address] RATIO LDL/HDL 3.04 RATIO <3.55 UNLESS O THERWISE (test code = 2238) INDICATED , ALL TESTING PERFORMED [facility]. [address] [place], [place] [id number] [place] [address] DIRECTOR: OPAL LEIGH M.D. CLIA NUMBER [id number] CAP ACCREDITATION N O. [id number] HEMOGLOBIN [id number] 00:00:00 Test Item Value Reference Range Interpretation Comments HEMOGLOBIN A1c (test code = 08994) 5.7 % HEMOGLOBIN [id number] 00:00:00 Test Item Value Reference Range Interpretation Comments HEMOGLOBIN A1c (test code = 19539) 5.7 % HEMOGLOBIN [id number] 00:00:00 Test Item Value Reference Range Interpretation Comments HEMOGLOBIN A1c (test code = 66043) 5.7 % COMPREHENSIVE METABOLIC [id number] 00:00:00 Test Item Value Reference Range Interpretation Comments GLUCOSE (test code = 2217) 92 MG/DL BUN (test code = 2208) 14 MG/DL CREATININE (test code = 2214) 1.04 MG/DL eGFR (2020 CKD-EPI) (test code 87 ML/MIN/1.73 = 67739) CALC BUN/CREAT (test code = 13 RATIO 223) SODIUM (test code = 2231) 142 MEQ/L POTASSIUM (test code = 2228) 4.3 MEQ/L CHLORIDE (test code = 2215) 105 MEQ/L CARBON DIOXIDE (test code = 24 MEQ/L 2205) CALCIUM (test code = 2209) 9.4 MG/DL PROTEIN, TOTAL (test code = 7.3 G/DL 2228) ALBUMIN (test code = 2201) 4.3 G/DL CALC GLOBULIN (test code = 3.0 G/DL 2239) CALC A/G RATIO (test code = 1.4 RATIO 2233) BILIRUBIN, TOTAL (test code = 0.7 MG/DL ) ALKALINE PHOSPHATASE (test 55 U/L code = 2204) AST (test code = 2218) 13 U/L ALT (test code = 2219) 13 U/L COMPREHENSIVE METABOLIC [id number] 00:00:00 Test Item Value Reference Range Interpretation Comments GLUCOSE (test code = 2217) 92 MG/DL BUN (test code = 2208) 14 MG/DL CREATININE (test code = 2214) 1.04 MG/DL eGFR (2020 CKD-EPI) (test code 87 ML/MIN/1.73 = 79279) CALC BUN/CREAT (test code = 13 RATIO 2235) SODIUM (test code = 2231) 142 MEQ/L POTASSIUM (test code = 2228) 4.3 MEQ/L CHLORIDE (test code = 2215) 105 MEQ/L CARBON DIOXIDE (test code = 24 MEQ/L 2205) CALCIUM (test code = 2209) 9.4 MG/DL PROTEIN, TOTAL (test code = 7.3 G/DL 2228) ALBUMIN (test code = 2201) 4.3 G/DL CALC GLOBULIN (test code = 3.0 G/DL 224) CALC A/G RATIO (test code = 1.4 RATIO 2234) BILIRUBIN, TOTAL (test code = 0.7 MG/DL 2206) ALKALINE PHOSPHATASE (test 55 U/L code = 2204) AST (test code = 2218) 13 U/L ALT (test code = 2219) 13 U/L LIPID [id number] 00:00:00 Test Item Value Reference Range Interpretation Comments CHOLESTEROL (test code = 2210) 205 MG/DL TRIGLYCERIDES (test code = 2232) 114 MG/DL HDL CHOLESTEROL (test code = 2220) 45 MG/DL CALC LDL CHOL (test code = 2237) 137 MG/DL RISK RATIO LDL/HDL (test code = 3.04 RATIO 2238) LIPID [id number] 00:00:00 Test Item Value Reference Range Interpretation Comments CHOLESTEROL (test code = 2210) 205 MG/DL TRIGLYCERIDES (test code = 2232) 114 MG/DL HDL CHOLESTEROL (test code = 2220) 45 MG/DL CALC LDL CHOL (test code = 2237) 137 MG/DL RISK RATIO LDL/HDL (test code = 3.04 RATIO 2238) TSH, THIRD [id number] 02:00:15 Test Item Value Reference Range Interpretation Comments TSH, THIRD GENERATION (test code 1.280 UIU/ML 0.400-4.100 = 2821) PSA, [id number] 02:00:15 Test Item Value Reference Range Interpretation Comments PSA, TOTAL 0.79 NG/ML See_Comment NOTE: Methodol ana is Analisa (test code = Angeli Electroch emiluminescence 2606) Immunoassay tra ceable to WHO reference stand fatmata 96/760. [Automated mess age] The system which generated this result transmitted ref erence range: <=4.00. The ref erence range was not used to int erpret this result as marietta l/abnormal. [id number] 00:00:00 Test Item Value Reference Range Interpretation Comments TSH, THIRD GENERATION (test code 1.280 UIU/ML = 2821) [id number] 00:00:00 Test Item Value Reference Range Interpretation Comments TSH, THIRD GENERATION (test code 1.280 UIU/ML = 2821) [id number] 00:00:00 Test Item Value Reference Range Interpretation Comments TSH, THIRD GENERATION (test code 1.280 UIU/ML = 2821) PSA, [id number] 00:00:00 Test Item Value Reference Range Interpretation Comments PSA, TOTAL (test code = 2606) 0.79 NG/ML PSA, [id number] 00:00:00 Test Item Value Reference Range Interpretation Comments PSA, TOTAL (test code = 2606) 0.79 NG/ML PSA, [id number] 00:00:00 Test Item Value Reference Range Interpretation Comments PSA, TOTAL (test code = 2606) 0.79 NG/ML [id number] 00:00:00 Test Item Value Reference Range Interpretation Comments TSH, THIRD GENERATION (test code 1.280 UIU/ML = 2821) [id number] 00:00:00 Test Item Value Reference Range Interpretation Comments TSH, THIRD GENERATION (test code 1.280 UIU/ML = 2821) [id number] 00:00:00 Test Item Value Reference Range Interpretation Comments TSH, THIRD GENERATION (test code 1.280 UIU/ML = 2821) PSA, [id number] 00:00:00 Test Item Value Reference Range Interpretation Comments PSA, TOTAL (test code = 2606) 0.79 NG/ML PSA, [id number] 00:00:00 Test Item Value Reference Range Interpretation Comments PSA, TOTAL (test code = 2606) 0.79 NG/ML PSA, [id number] 00:00:00 Test Item Value Reference Range Interpretation Comments PSA, TOTAL (test code = 2606) 0.79 NG/ML [id number] 00:00:00 Test Item Value Reference Range Interpretation Comments TSH, THIRD GENERATION (test code 1.280 UIU/ML = 2821) [id number] 00:00:00 Test Item Value Reference Range Interpretation Comments TSH, THIRD GENERATION (test code 1.280 UIU/ML = 2821) [id number] 00:00:00 Test Item Value Reference Range Interpretation Comments TSH, THIRD GENERATION (test code 1.280 UIU/ML = 2821) PSA, [id number] 00:00:00 Test Item Value Reference Range Interpretation Comments PSA, TOTAL (test code = 2606) 0.79 NG/ML PSA, [id number] 00:00:00 Test Item Value Reference Range Interpretation Comments PSA, TOTAL (test code = 2606) 0.79 NG/ML PSA, [id number] 00:00:00 Test Item Value Reference Range Interpretation Comments PSA, TOTAL (test code = 2606) 0.79 NG/ML COMPREHENSIVE METABOLIC [id number] 23:58:33 Test Item Value Reference Range Interpretation Comments GLUCOSE (test code = 76 MG/DL 70-99 2216) BUN (test code = 9 MG/DL 02-25) CREATININE (test 1.05 MG/DL 0.80-1.40 code = 2214) eGFR (2020 CKD-EPI) 86 ML/MIN/1.73 >60 (test code = 89637) CALC BUN/CREAT (test 9 RATIO 03-05 code = 2235) SODIUM (test code = 142 MEQ/L 445-389 4157) POTASSIUM (test code 3.9 MEQ/L 3.5-5.4 = 2227) CHLORIDE (test code 105 MEQ/L 95-107 = 2215) CARBON DIOXIDE (test 24 MEQ/L 19-31 code = 2206) CALCIUM (test code = 9.3 MG/DL 8.5-10.5 2208) PROTEIN, TOTAL (test 7.2 G/DL 6.1-8.3 code = 222) ALBUMIN (test code = 4.3 G/DL 3.5-5.2 2200) CALC GLOBULIN (test 2.9 G/DL 1.9-3.7 code = 2240) CALC A/G RATIO (test 1.5 RATIO 1.0-2.6 code = 2234) BILIRUBIN, TOTAL 0.6 MG/DL See_Comment [Automated message] (test code = 2207) The syste m which generated this result transmit malu reference range : <=1.2. The refe rence range was not u sed to interpret th is result as normal/abnormal . ALKALINE PHOSPHATASE 60 U/L 40-118 (test code = 2203) AST (test code = 14 U/L 9-50 2217) ALT (test code = 12 U/L 5-50 2218) LIPID [id number] 23:58:33 Test Item Value Reference Range Interpretation Comments CHOLESTEROL (test 187 MG/DL <200 code = 2210) TRIGLYCERIDES (test 76 MG/DL <150 code = 2232) HDL CHOLESTEROL (test 42 MG/DL >39 code = 2220) CALC LDL CHOL (test 128 MG/DL <100 H NOTE: C ALCULATED LDL code = 2237) IS BASED ON BRUCE-ETIENNE METHOD WHICHINCLUDES ADJUSTABLE TRIGLYCERIDE:VL DL CHOLESTEROL RAT IO.THIS FACTOR VARIES B Y MEASURED TRIGLY CERIDE AND NON-HDLCHOL ESTEROL CONCENTRATIONS WITH INCREASED CALCU LATED LDL SEENIN HIGH ER TRIGLYCERIDE OR LOWER NON-HDL SPECIME NS. FOR MOREINFORMATION , SEE CLIENT ANNOUNCE MENT AT [email or web address] RISK RATIO LDL/HDL 3.05 RATIO <3.55 (test code = 2238) CBC W/AUTO DIFF WITH [id number] 06:40:54 Test Item Value Reference Range Interpretation Comments WBC (test code = 3.2 K/UL 3.5-11.0 L 1001) RBC (test code = 4.43 M/UL 4.50-6.10 L 1002) HEMOGLOBIN (test 13.5 G/DL 13.5-17.0 code = 1003) HEMATOCRIT (test 41.4 % 40.0-51.0 code = 1004) MCV (test code = 93.5 fL 80.0-99.0 1005) MCH (test code = 30.5 PG 25.0-33.0 1006) MCHC (test code = 32.6 G/DL 31.0-36.0 1007) RDW (test code = 12.8 % 11.5-15.0 1038) NEUTROPHILS (test 21.9 % AUTOMATED code = 1008) DIFFERENTIAL CONFIRMED WITH MANUAL SLIDE REVIEW. LYMPHOCYTES (test 62.7 % code = 1010) MONOCYTES (test code 10.2 % = 1011) EOSINOPHILS (test 4.3 % code = 1012) BASOPHILS (test code 0.6 % = 1013) IMMATURE 0.3 % GRANULOCYTES (test code = 1036) NUCLEATED RBCS (test 0.0 /100 See_Comment [Autom ated message] code = 1065) WBC'S The system [employer] generated this result transmitted ref erence range: 0.0. The reference range was not used to int erpret this result as normal/abnormal . PLATELET COUNT (test 152 K/UL 130-400 code = 1015) ABSOLUTE NEUTROPHILS 0.71 K/UL 1.50-7.50 L (test code = 1066) ABSOLUTE LYMPHOCYTES 2.03 K/UL 1.00-4.00 (test code = 1067) ABSOLUTE MONOCYTES 0.33 K/UL 0.20-1.00 (test code = 1068) ABSOLUTE EOSINOPHILS 0.14 K/UL 0.00-0.50 (test code = 1040) ABSOLUTE BASOPHILS 0.02 K/UL 0.00-0.20 (test code = 1069) ABS IMMATURE 0.01 K/UL 0.00-0.10 GRANULOCYTES (test code = 1020) ABS NUCLEATED RBCS 0.00 K/UL 0.00-0.11 (test code = 90986) COMMENTS (test code (NOTE) NO SPEC IFIC RBC = 1016) ABNORMALITIES IDENTIFIED PLAT ELETS APPEAR NORMAL HEMOGLOBIN [id number] 04:22:49 Test Item Value Reference Range Interpretation Comments HEMOGLOBIN A1c (test 5.7 % 4.2-5.6 H UNLESS OTHERWISE code = 23839) INDICATED, ALL TESTING PERFORMED [facility] [employer] [address] [place] [address] [facility] DAC[facility] DIRECTOR: OPAL LEIGH M.D. CLIA NUMBER [id number] CAP ACCREDITATION N O. [id number] COMPREHENSIVE METABOLIC [id number] 00:00:00 Test Item Value Reference Range Interpretation Comments GLUCOSE (test code = 2217) 76 MG/DL BUN (test code = 2208) 9 MG/DL CREATININE (test code = 2214) 1.05 MG/DL eGFR (2020 CKD-EPI) (test code 86 ML/MIN/1.73 = 20655) CALC BUN/CREAT (test code = 9 RATIO 2235) SODIUM (test code = 2231) 142 MEQ/L POTASSIUM (test code = 2228) 3.9 MEQ/L CHLORIDE (test code = 2215) 105 MEQ/L CARBON DIOXIDE (test code = 24 MEQ/L 220) CALCIUM (test code = 2209) 9.3 MG/DL PROTEIN, TOTAL (test code = 7.2 G/DL 2228) ALBUMIN (test code = 2201) 4.3 G/DL CALC GLOBULIN (test code = 2.9 G/DL 2240) CALC A/G RATIO (test code = 1.5 RATIO 2234) BILIRUBIN, TOTAL (test code = 0.6 MG/DL 220) ALKALINE PHOSPHATASE (test 60 U/L code = 2204) AST (test code = 2218) 14 U/L ALT (test code = 2219) 12 U/L COMPREHENSIVE METABOLIC [id number] 00:00:00 Test Item Value Reference Range Interpretation Comments GLUCOSE (test code = 2217) 76 MG/DL BUN (test code = 2208) 9 MG/DL CREATININE (test code = 2214) 1.05 MG/DL eGFR (2020 CKD-EPI) (test code 86 ML/MIN/1.73 = 10720) CALC BUN/CREAT (test code = 9 RATIO 2235) SODIUM (test code = 2231) 142 MEQ/L POTASSIUM (test code = 2228) 3.9 MEQ/L CHLORIDE (test code = 2215) 105 MEQ/L CARBON DIOXIDE (test code = 24 MEQ/L 220) CALCIUM (test code = 2209) 9.3 MG/DL PROTEIN, TOTAL (test code = 7.2 G/DL 2228) ALBUMIN (test code = 2201) 4.3 G/DL CALC GLOBULIN (test code = 2.9 G/DL 2240) CALC A/G RATIO (test code = 1.5 RATIO 2234) BILIRUBIN, TOTAL (test code = 0.6 MG/DL 2206) ALKALINE PHOSPHATASE (test 60 U/L code = 2204) AST (test code = 2218) 14 U/L ALT (test code = 2219) 12 U/L LIPID [id number] 00:00:00 Test Item Value Reference Range Interpretation Comments CHOLESTEROL (test code = 2210) 187 MG/DL TRIGLYCERIDES (test code = 2232) 76 MG/DL HDL CHOLESTEROL (test code = 2220) 42 MG/DL CALC LDL CHOL (test code = 2237) 128 MG/DL RISK RATIO LDL/HDL (test code = 3.05 RATIO 2238) LIPID [id number] 00:00:00 Test Item Value Reference Range Interpretation Comments CHOLESTEROL (test code = 2210) 187 MG/DL TRIGLYCERIDES (test code = 2232) 76 MG/DL HDL CHOLESTEROL (test code = 2220) 42 MG/DL CALC LDL CHOL (test code = 2237) 128 MG/DL RISK RATIO LDL/HDL (test code = 3.05 RATIO 2238) CBC W/AUTO [id number] 00:00:00 Test Item Value Reference Range Interpretation Comments WBC (test code = 1001) 3.2 K/UL RBC (test code = 1002) 4.43 M/UL HEMOGLOBIN (test code = 1003) 13.5 G/DL HEMATOCRIT (test code = 1004) 41.4 % MCV (test code = 1005) 93.5 fL MCH (test code = 1006) 30.5 PG MCHC (test code = 1007) 32.6 G/DL RDW (test code = 1038) 12.8 % NEUTROPHILS (test code = 1008) 21.9 % LYMPHOCYTES (test code = 1010) 62.7 % MONOCYTES (test code = 1011) 10.2 % EOSINOPHILS (test code = 1012) 4.3 % BASOPHILS (test code = 1013) 0.6 % IMMATURE GRANULOCYTES (test 0.3 % code = 1036) NUCLEATED RBCS (test code = 0.0 /100WBC'S 1065) PLATELET COUNT (test code = 152 K/UL 1015) ABSOLUTE NEUTROPHILS (test code 0.71 K/UL = 1066) ABSOLUTE LYMPHOCYTES (test code 2.03 K/UL = 1067) ABSOLUTE MONOCYTES (test code = 0.33 K/UL 1068) ABSOLUTE EOSINOPHILS (test code 0.14 K/UL = 1040) ABSOLUTE BASOPHILS (test code = 0.02 K/UL 1069) ABS IMMATURE GRANULOCYTES (test 0.01 K/UL code = 1020) ABS NUCLEATED RBCS (test code = 0.00 K/UL 87606) COMMENTS (test code = 1016) (NOTE) CBC W/AUTO [id number] 00:00:00 Test Item Value Reference Range Interpretation Comments WBC (test code = 1001) 3.2 K/UL RBC (test code = 1002) 4.43 M/UL HEMOGLOBIN (test code = 1003) 13.5 G/DL HEMATOCRIT (test code = 1004) 41.4 % MCV (test code = 1005) 93.5 fL MCH (test code = 1006) 30.5 PG MCHC (test code = 1007) 32.6 G/DL RDW (test code = 1038) 12.8 % NEUTROPHILS (test code = 1008) 21.9 % LYMPHOCYTES (test code = 1010) 62.7 % MONOCYTES (test code = 1011) 10.2 % EOSINOPHILS (test code = 1012) 4.3 % BASOPHILS (test code = 1013) 0.6 % IMMATURE GRANULOCYTES (test 0.3 % code = 1036) NUCLEATED RBCS (test code = 0.0 /100WBC'S 1065) PLATELET COUNT (test code = 152 K/UL 1015) ABSOLUTE NEUTROPHILS (test code 0.71 K/UL = 1066) ABSOLUTE LYMPHOCYTES (test code 2.03 K/UL = 1067) ABSOLUTE MONOCYTES (test code = 0.33 K/UL 1068) ABSOLUTE EOSINOPHILS (test code 0.14 K/UL = 1040) ABSOLUTE BASOPHILS (test code = 0.02 K/UL 1069) ABS IMMATURE GRANULOCYTES (test 0.01 K/UL code = 1020) ABS NUCLEATED RBCS (test code = 0.00 K/UL 56721) COMMENTS (test code = 1016) (NOTE) CBC W/AUTO [id number] 00:00:00 Test Item Value Reference Range Interpretation Comments WBC (test code = 1001) 3.2 K/UL RBC (test code = 1002) 4.43 M/UL HEMOGLOBIN (test code = 1003) 13.5 G/DL HEMATOCRIT (test code = 1004) 41.4 % MCV (test code = 1005) 93.5 fL MCH (test code = 1006) 30.5 PG MCHC (test code = 1007) 32.6 G/DL RDW (test code = 1038) 12.8 % NEUTROPHILS (test code = 1008) 21.9 % LYMPHOCYTES (test code = 1010) 62.7 % MONOCYTES (test code = 1011) 10.2 % EOSINOPHILS (test code = 1012) 4.3 % BASOPHILS (test code = 1013) 0.6 % IMMATURE GRANULOCYTES (test 0.3 % code = 1036) NUCLEATED RBCS (test code = 0.0 /100WBC'S 1065) PLATELET COUNT (test code = 152 K/UL 1015) ABSOLUTE NEUTROPHILS (test code 0.71 K/UL = 1066) ABSOLUTE LYMPHOCYTES (test code 2.03 K/UL = 1067) ABSOLUTE MONOCYTES (test code = 0.33 K/UL 1068) ABSOLUTE EOSINOPHILS (test code 0.14 K/UL = 1040) ABSOLUTE BASOPHILS (test code = 0.02 K/UL 1069) ABS IMMATURE GRANULOCYTES (test 0.01 K/UL code = 1020) ABS NUCLEATED RBCS (test code = 0.00 K/UL 12655) COMMENTS (test code = 1016) (NOTE) HEMOGLOBIN [id number] 00:00:00 Test Item Value Reference Range Interpretation Comments HEMOGLOBIN A1c (test code = 41725) 5.7 % HEMOGLOBIN [id number] 00:00:00 Test Item Value Reference Range Interpretation Comments HEMOGLOBIN A1c (test code = 91179) 5.7 % HEMOGLOBIN [id number] 00:00:00 Test Item Value Reference Range Interpretation Comments HEMOGLOBIN A1c (test code = 74885) 5.7 % COMPREHENSIVE METABOLIC [id number] 00:00:00 Test Item Value Reference Range Interpretation Comments GLUCOSE (test code = 2217) 76 MG/DL BUN (test code = 2208) 9 MG/DL CREATININE (test code = 2214) 1.05 MG/DL eGFR (2020 CKD-EPI) (test code 86 ML/MIN/1.73 = 19515) CALC BUN/CREAT (test code = 9 RATIO 2235) SODIUM (test code = 2231) 142 MEQ/L POTASSIUM (test code = 2228) 3.9 MEQ/L CHLORIDE (test code = 2215) 105 MEQ/L CARBON DIOXIDE (test code = 24 MEQ/L 2206) CALCIUM (test code = 2209) 9.3 MG/DL PROTEIN, TOTAL (test code = 7.2 G/DL 2228) ALBUMIN (test code = 2201) 4.3 G/DL CALC GLOBULIN (test code = 2.9 G/DL 2240) CALC A/G RATIO (test code = 1.5 RATIO 2234) BILIRUBIN, TOTAL (test code = 0.6 MG/DL 2206) ALKALINE PHOSPHATASE (test 60 U/L code = 2204) AST (test code = 2218) 14 U/L ALT (test code = 2219) 12 U/L COMPREHENSIVE METABOLIC [id number] 00:00:00 Test Item Value Reference Range Interpretation Comments GLUCOSE (test code = 2217) 76 MG/DL BUN (test code = 2208) 9 MG/DL CREATININE (test code = 2214) 1.05 MG/DL eGFR (2020 CKD-EPI) (test code 86 ML/MIN/1.73 = 16540) CALC BUN/CREAT (test code = 9 RATIO 2235) SODIUM (test code = 2231) 142 MEQ/L POTASSIUM (test code = 2228) 3.9 MEQ/L CHLORIDE (test code = 2215) 105 MEQ/L CARBON DIOXIDE (test code = 24 MEQ/L 2205) CALCIUM (test code = 2209) 9.3 MG/DL PROTEIN, TOTAL (test code = 7.2 G/DL 2228) ALBUMIN (test code = 2201) 4.3 G/DL CALC GLOBULIN (test code = 2.9 G/DL 2240) CALC A/G RATIO (test code = 1.5 RATIO 2234) BILIRUBIN, TOTAL (test code = 0.6 MG/DL 2206) ALKALINE PHOSPHATASE (test 60 U/L code = 2204) AST (test code = 2218) 14 U/L ALT (test code = 2219) 12 U/L LIPID [id number] 00:00:00 Test Item Value Reference Range Interpretation Comments CHOLESTEROL (test code = 2210) 187 MG/DL TRIGLYCERIDES (test code = 2232) 76 MG/DL HDL CHOLESTEROL (test code = 2220) 42 MG/DL CALC LDL CHOL (test code = 2237) 128 MG/DL RISK RATIO LDL/HDL (test code = 3.05 RATIO 2238) LIPID [id number] 00:00:00 Test Item Value Reference Range Interpretation Comments CHOLESTEROL (test code = 2210) 187 MG/DL TRIGLYCERIDES (test code = 2232) 76 MG/DL HDL CHOLESTEROL (test code = 2220) 42 MG/DL CALC LDL CHOL (test code = 2237) 128 MG/DL RISK RATIO LDL/HDL (test code = 3.05 RATIO 2238) CBC W/AUTO [id number] 00:00:00 Test Item Value Reference Range Interpretation Comments WBC (test code = 1001) 3.2 K/UL RBC (test code = 1002) 4.43 M/UL HEMOGLOBIN (test code = 1003) 13.5 G/DL HEMATOCRIT (test code = 1004) 41.4 % MCV (test code = 1005) 93.5 fL MCH (test code = 1006) 30.5 PG MCHC (test code = 1007) 32.6 G/DL RDW (test code = 1038) 12.8 % NEUTROPHILS (test code = 1008) 21.9 % LYMPHOCYTES (test code = 1010) 62.7 % MONOCYTES (test code = 1011) 10.2 % EOSINOPHILS (test code = 1012) 4.3 % BASOPHILS (test code = 1013) 0.6 % IMMATURE GRANULOCYTES (test 0.3 % code = 1036) NUCLEATED RBCS (test code = 0.0 /100WBC'S 1065) PLATELET COUNT (test code = 152 K/UL 1015) ABSOLUTE NEUTROPHILS (test code 0.71 K/UL = 1066) ABSOLUTE LYMPHOCYTES (test code 2.03 K/UL = 1067) ABSOLUTE MONOCYTES (test code = 0.33 K/UL 1068) ABSOLUTE EOSINOPHILS (test code 0.14 K/UL = 1040) ABSOLUTE BASOPHILS (test code = 0.02 K/UL 1069) ABS IMMATURE GRANULOCYTES (test 0.01 K/UL code = 1020) ABS NUCLEATED RBCS (test code = 0.00 K/UL 98280) COMMENTS (test code = 1016) (NOTE) CBC W/AUTO [id number] 00:00:00 Test Item Value Reference Range Interpretation Comments WBC (test code = 1001) 3.2 K/UL RBC (test code = 1002) 4.43 M/UL HEMOGLOBIN (test code = 1003) 13.5 G/DL HEMATOCRIT (test code = 1004) 41.4 % MCV (test code = 1005) 93.5 fL MCH (test code = 1006) 30.5 PG MCHC (test code = 1007) 32.6 G/DL RDW (test code = 1038) 12.8 % NEUTROPHILS (test code = 1008) 21.9 % LYMPHOCYTES (test code = 1010) 62.7 % MONOCYTES (test code = 1011) 10.2 % EOSINOPHILS (test code = 1012) 4.3 % BASOPHILS (test code = 1013) 0.6 % IMMATURE GRANULOCYTES (test 0.3 % code = 1036) NUCLEATED RBCS (test code = 0.0 /100WBC'S 1065) PLATELET COUNT (test code = 152 K/UL 1015) ABSOLUTE NEUTROPHILS (test code 0.71 K/UL = 1066) ABSOLUTE LYMPHOCYTES (test code 2.03 K/UL = 1067) ABSOLUTE MONOCYTES (test code = 0.33 K/UL 1068) ABSOLUTE EOSINOPHILS (test code 0.14 K/UL = 1040) ABSOLUTE BASOPHILS (test code = 0.02 K/UL 1069) ABS IMMATURE GRANULOCYTES (test 0.01 K/UL code = 1020) ABS NUCLEATED RBCS (test code = 0.00 K/UL 30747) COMMENTS (test code = 1016) (NOTE) CBC W/AUTO [id number] 00:00:00 Test Item Value Reference Range Interpretation Comments WBC (test code = 1001) 3.2 K/UL RBC (test code = 1002) 4.43 M/UL HEMOGLOBIN (test code = 1003) 13.5 G/DL HEMATOCRIT (test code = 1004) 41.4 % MCV (test code = 1005) 93.5 fL MCH (test code = 1006) 30.5 PG MCHC (test code = 1007) 32.6 G/DL RDW (test code = 1038) 12.8 % NEUTROPHILS (test code = 1008) 21.9 % LYMPHOCYTES (test code = 1010) 62.7 % MONOCYTES (test code = 1011) 10.2 % EOSINOPHILS (test code = 1012) 4.3 % BASOPHILS (test code = 1013) 0.6 % IMMATURE GRANULOCYTES (test 0.3 % code = 1036) NUCLEATED RBCS (test code = 0.0 /100WBC'S 1065) PLATELET COUNT (test code = 152 K/UL 1015) ABSOLUTE NEUTROPHILS (test code 0.71 K/UL = 1066) ABSOLUTE LYMPHOCYTES (test code 2.03 K/UL = 1067) ABSOLUTE MONOCYTES (test code = 0.33 K/UL 1068) ABSOLUTE EOSINOPHILS (test code 0.14 K/UL = 1040) ABSOLUTE BASOPHILS (test code = 0.02 K/UL 1069) ABS IMMATURE GRANULOCYTES (test 0.01 K/UL code = 1020) ABS NUCLEATED RBCS (test code = 0.00 K/UL 82006) COMMENTS (test code = 1016) (NOTE) HEMOGLOBIN [id number] 00:00:00 Test Item Value Reference Range Interpretation Comments HEMOGLOBIN A1c (test code = 93481) 5.7 % HEMOGLOBIN [id number] 00:00:00 Test Item Value Reference Range Interpretation Comments HEMOGLOBIN A1c (test code = 15828) 5.7 % HEMOGLOBIN [id number] 00:00:00 Test Item Value Reference Range Interpretation Comments HEMOGLOBIN A1c (test code = 04198) 5.7 % COMPREHENSIVE METABOLIC [id number] 00:00:00 Test Item Value Reference Range Interpretation Comments GLUCOSE (test code = 2217) 76 MG/DL BUN (test code = 2208) 9 MG/DL CREATININE (test code = 2214) 1.05 MG/DL eGFR (2020 CKD-EPI) (test code 86 ML/MIN/1.73 = 50277) CALC BUN/CREAT (test code = 9 RATIO 2235) SODIUM (test code = 2231) 142 MEQ/L POTASSIUM (test code = 2228) 3.9 MEQ/L CHLORIDE (test code = 2215) 105 MEQ/L CARBON DIOXIDE (test code = 24 MEQ/L 2205) CALCIUM (test code = 2209) 9.3 MG/DL PROTEIN, TOTAL (test code = 7.2 G/DL 2228) ALBUMIN (test code = 2201) 4.3 G/DL CALC GLOBULIN (test code = 2.9 G/DL 0) CALC A/G RATIO (test code = 1.5 RATIO 2233) BILIRUBIN, TOTAL (test code = 0.6 MG/DL 2207) ALKALINE PHOSPHATASE (test 60 U/L code = 2204) AST (test code = 2218) 14 U/L ALT (test code = 2219) 12 U/L COMPREHENSIVE METABOLIC [id number] 00:00:00 Test Item Value Reference Range Interpretation Comments GLUCOSE (test code = 2217) 76 MG/DL BUN (test code = 2208) 9 MG/DL CREATININE (test code = 2214) 1.05 MG/DL eGFR (2020 CKD-EPI) (test code 86 ML/MIN/1.73 = 30648) CALC BUN/CREAT (test code = 9 RATIO 2235) SODIUM (test code = 2231) 142 MEQ/L POTASSIUM (test code = 2228) 3.9 MEQ/L CHLORIDE (test code = 2215) 105 MEQ/L CARBON DIOXIDE (test code = 24 MEQ/L 2205) CALCIUM (test code = 2209) 9.3 MG/DL PROTEIN, TOTAL (test code = 7.2 G/DL 2228) ALBUMIN (test code = 2201) 4.3 G/DL CALC GLOBULIN (test code = 2.9 G/DL 2239) CALC A/G RATIO (test code = 1.5 RATIO 2234) BILIRUBIN, TOTAL (test code = 0.6 MG/DL 2206) ALKALINE PHOSPHATASE (test 60 U/L code = 2204) AST (test code = 2218) 14 U/L ALT (test code = 2219) 12 U/L LIPID [id number] 00:00:00 Test Item Value Reference Range Interpretation Comments CHOLESTEROL (test code = 2210) 187 MG/DL TRIGLYCERIDES (test code = 2232) 76 MG/DL HDL CHOLESTEROL (test code = 2220) 42 MG/DL CALC LDL CHOL (test code = 2237) 128 MG/DL RISK RATIO LDL/HDL (test code = 3.05 RATIO 2238) LIPID [id number] 00:00:00 Test Item Value Reference Range Interpretation Comments CHOLESTEROL (test code = 2210) 187 MG/DL TRIGLYCERIDES (test code = 2232) 76 MG/DL HDL CHOLESTEROL (test code = 2220) 42 MG/DL CALC LDL CHOL (test code = 2237) 128 MG/DL RISK RATIO LDL/HDL (test code = 3.05 RATIO 2238) CBC W/AUTO [id number] 00:00:00 Test Item Value Reference Range Interpretation Comments WBC (test code = 1001) 3.2 K/UL RBC (test code = 1002) 4.43 M/UL HEMOGLOBIN (test code = 1003) 13.5 G/DL HEMATOCRIT (test code = 1004) 41.4 % MCV (test code = 1005) 93.5 fL MCH (test code = 1006) 30.5 PG MCHC (test code = 1007) 32.6 G/DL RDW (test code = 1038) 12.8 % NEUTROPHILS (test code = 1008) 21.9 % LYMPHOCYTES (test code = 1010) 62.7 % MONOCYTES (test code = 1011) 10.2 % EOSINOPHILS (test code = 1012) 4.3 % BASOPHILS (test code = 1013) 0.6 % IMMATURE GRANULOCYTES (test 0.3 % code = 1036) NUCLEATED RBCS (test code = 0.0 /100WBC'S 1065) PLATELET COUNT (test code = 152 K/UL 1015) ABSOLUTE NEUTROPHILS (test code 0.71 K/UL = 1066) ABSOLUTE LYMPHOCYTES (test code 2.03 K/UL = 1067) ABSOLUTE MONOCYTES (test code = 0.33 K/UL 1068) ABSOLUTE EOSINOPHILS (test code 0.14 K/UL = 1040) ABSOLUTE BASOPHILS (test code = 0.02 K/UL 1069) ABS IMMATURE GRANULOCYTES (test 0.01 K/UL code = 1020) ABS NUCLEATED RBCS (test code = 0.00 K/UL 71551) COMMENTS (test code = 1016) (NOTE) CBC W/AUTO [id number] 00:00:00 Test Item Value Reference Range Interpretation Comments WBC (test code = 1001) 3.2 K/UL RBC (test code = 1002) 4.43 M/UL HEMOGLOBIN (test code = 1003) 13.5 G/DL HEMATOCRIT (test code = 1004) 41.4 % MCV (test code = 1005) 93.5 fL MCH (test code = 1006) 30.5 PG MCHC (test code = 1007) 32.6 G/DL RDW (test code = 1038) 12.8 % NEUTROPHILS (test code = 1008) 21.9 % LYMPHOCYTES (test code = 1010) 62.7 % MONOCYTES (test code = 1011) 10.2 % EOSINOPHILS (test code = 1012) 4.3 % BASOPHILS (test code = 1013) 0.6 % IMMATURE GRANULOCYTES (test 0.3 % code = 1036) NUCLEATED RBCS (test code = 0.0 /100WBC'S 1065) PLATELET COUNT (test code = 152 K/UL 1015) ABSOLUTE NEUTROPHILS (test code 0.71 K/UL = 1066) ABSOLUTE LYMPHOCYTES (test code 2.03 K/UL = 1067) ABSOLUTE MONOCYTES (test code = 0.33 K/UL 1068) ABSOLUTE EOSINOPHILS (test code 0.14 K/UL = 1040) ABSOLUTE BASOPHILS (test code = 0.02 K/UL 1069) ABS IMMATURE GRANULOCYTES (test 0.01 K/UL code = 1020) ABS NUCLEATED RBCS (test code = 0.00 K/UL 39704) COMMENTS (test code = 1016) (NOTE) CBC W/AUTO [id number] 00:00:00 Test Item Value Reference Range Interpretation Comments WBC (test code = 1001) 3.2 K/UL RBC (test code = 1002) 4.43 M/UL HEMOGLOBIN (test code = 1003) 13.5 G/DL HEMATOCRIT (test code = 1004) 41.4 % MCV (test code = 1005) 93.5 fL MCH (test code = 1006) 30.5 PG MCHC (test code = 1007) 32.6 G/DL RDW (test code = 1038) 12.8 % NEUTROPHILS (test code = 1008) 21.9 % LYMPHOCYTES (test code = 1010) 62.7 % MONOCYTES (test code = 1011) 10.2 % EOSINOPHILS (test code = 1012) 4.3 % BASOPHILS (test code = 1013) 0.6 % IMMATURE GRANULOCYTES (test 0.3 % code = 1036) NUCLEATED RBCS (test code = 0.0 /100WBC'S 1065) PLATELET COUNT (test code = 152 K/UL 1015) ABSOLUTE NEUTROPHILS (test code 0.71 K/UL = 1066) ABSOLUTE LYMPHOCYTES (test code 2.03 K/UL = 1067) ABSOLUTE MONOCYTES (test code = 0.33 K/UL 1068) ABSOLUTE EOSINOPHILS (test code 0.14 K/UL = 1040) ABSOLUTE BASOPHILS (test code = 0.02 K/UL 1069) ABS IMMATURE GRANULOCYTES (test 0.01 K/UL code = 1020) ABS NUCLEATED RBCS (test code = 0.00 K/UL 67923) COMMENTS (test code = 1016) (NOTE) HEMOGLOBIN [id number] 00:00:00 Test Item Value Reference Range Interpretation Comments HEMOGLOBIN A1c (test code = 39266) 5.7 % HEMOGLOBIN [id number] 00:00:00 Test Item Value Reference Range Interpretation Comments HEMOGLOBIN A1c (test code = 94308) 5.7 % HEMOGLOBIN [id number] 00:00:00 Test Item Value Reference Range Interpretation Comments HEMOGLOBIN A1c (test code = 64216) 5.7 % LIPID [id number] 00:00:00 Test Item Value Reference Range Interpretation Comments CHOLESTEROL (test code = 2210) 214 MG/DL TRIGLYCERIDES (test code = 2232) 144 MG/DL HDL CHOLESTEROL (test code = 2220) 48 MG/DL CALC LDL CHOL (test code = 2237) 139 MG/DL RISK RATIO LDL/HDL (test code = 2.90 RATIO 2238) LIPID [id number] 00:00:00 Test Item Value Reference Range Interpretation Comments CHOLESTEROL (test code = 2210) 214 MG/DL TRIGLYCERIDES (test code = 2232) 144 MG/DL HDL CHOLESTEROL (test code = 2220) 48 MG/DL CALC LDL CHOL (test code = 2237) 139 MG/DL RISK RATIO LDL/HDL (test code = 2.90 RATIO 2238) COMPREHENSIVE METABOLIC [id number] 00:00:00 Test Item Value Reference Range Interpretation Comments GLUCOSE (test code = 2217) 71 MG/DL BUN (test code = 2208) 11 MG/DL CREATININE (test code = 2214) 0.99 MG/DL eGFR AMER. (test code 103 ML/MIN/1.73 = 84482) eGFR NON- AMER. (test 89 ML/MIN/1.73 code = 80736) CALC BUN/CREAT (test code = 11 RATIO 2235) SODIUM (test code = 2231) 145 MEQ/L POTASSIUM (test code = 2228) 4.3 MEQ/L CHLORIDE (test code = 2215) 104 MEQ/L CARBON DIOXIDE (test code = 26 MEQ/L 2205) CALCIUM (test code = 2209) 9.7 MG/DL PROTEIN, TOTAL (test code = 7.2 G/DL 2228) ALBUMIN (test code = 2201) 4.4 G/DL CALC GLOBULIN (test code = 2.8 G/DL 2240) CALC A/G RATIO (test code = 1.6 RATIO 2234) BILIRUBIN, TOTAL (test code = 0.6 MG/DL 2206) ALKALINE PHOSPHATASE (test 61 U/L code = 2204) AST (test code = 2218) 17 U/L ALT (test code = 2219) 14 U/L COMPREHENSIVE METABOLIC [id number] 00:00:00 Test Item Value Reference Range Interpretation Comments GLUCOSE (test code = 2217) 71 MG/DL BUN (test code = 2208) 11 MG/DL CREATININE (test code = 2214) 0.99 MG/DL eGFR AMER. (test code 103 ML/MIN/1.73 = 68007) eGFR NON- AMER. (test 89 ML/MIN/1.73 code = 03703) CALC BUN/CREAT (test code = 11 RATIO 2235) SODIUM (test code = 2231) 145 MEQ/L POTASSIUM (test code = 2228) 4.3 MEQ/L CHLORIDE (test code = 2215) 104 MEQ/L CARBON DIOXIDE (test code = 26 MEQ/L 2205) CALCIUM (test code = 2209) 9.7 MG/DL PROTEIN, TOTAL (test code = 7.2 G/DL 2228) ALBUMIN (test code = 2201) 4.4 G/DL CALC GLOBULIN (test code = 2.8 G/DL 2240) CALC A/G RATIO (test code = 1.6 RATIO 2234) BILIRUBIN, TOTAL (test code = 0.6 MG/DL 2206) ALKALINE PHOSPHATASE (test 61 U/L code = 2204) AST (test code = 2218) 17 U/L ALT (test code = 2219) 14 U/L LIPID [id number] 00:00:00 Test Item Value Reference Range Interpretation Comments CHOLESTEROL (test code = 2210) 214 MG/DL TRIGLYCERIDES (test code = 2232) 144 MG/DL HDL CHOLESTEROL (test code = 2220) 48 MG/DL CALC LDL CHOL (test code = 2237) 139 MG/DL RISK RATIO LDL/HDL (test code = 2.90 RATIO 2238) LIPID [id number] 00:00:00 Test Item Value Reference Range Interpretation Comments CHOLESTEROL (test code = 2210) 214 MG/DL TRIGLYCERIDES (test code = 2232) 144 MG/DL HDL CHOLESTEROL (test code = 2220) 48 MG/DL CALC LDL CHOL (test code = 2237) 139 MG/DL RISK RATIO LDL/HDL (test code = 2.90 RATIO 2238) COMPREHENSIVE METABOLIC [id number] 00:00:00 Test Item Value Reference Range Interpretation Comments GLUCOSE (test code = 2217) 71 MG/DL BUN (test code = 2208) 11 MG/DL CREATININE (test code = 2214) 0.99 MG/DL eGFR AMER. (test code 103 ML/MIN/1.73 = 38224) eGFR NON- AMER. (test 89 ML/MIN/1.73 code = 38367) CALC BUN/CREAT (test code = 11 RATIO 2235) SODIUM (test code = 2231) 145 MEQ/L POTASSIUM (test code = 2228) 4.3 MEQ/L CHLORIDE (test code = 2215) 104 MEQ/L CARBON DIOXIDE (test code = 26 MEQ/L 2205) CALCIUM (test code = 2209) 9.7 MG/DL PROTEIN, TOTAL (test code = 7.2 G/DL 2228) ALBUMIN (test code = 2201) 4.4 G/DL CALC GLOBULIN (test code = 2.8 G/DL 0) CALC A/G RATIO (test code = 1.6 RATIO 2234) BILIRUBIN, TOTAL (test code = 0.6 MG/DL 2206) ALKALINE PHOSPHATASE (test 61 U/L code = 2204) AST (test code = 2218) 17 U/L ALT (test code = 2219) 14 U/L COMPREHENSIVE METABOLIC [id number] 00:00:00 Test Item Value Reference Range Interpretation Comments GLUCOSE (test code = 2217) 71 MG/DL BUN (test code = 2208) 11 MG/DL CREATININE (test code = 2214) 0.99 MG/DL eGFR AMER. (test code 103 ML/MIN/1.73 = 46137) eGFR NON- AMER. (test 89 ML/MIN/1.73 code = 19808) CALC BUN/CREAT (test code = 11 RATIO 2235) SODIUM (test code = 2231) 145 MEQ/L POTASSIUM (test code = 2228) 4.3 MEQ/L CHLORIDE (test code = 2215) 104 MEQ/L CARBON DIOXIDE (test code = 26 MEQ/L 2205) CALCIUM (test code = 2209) 9.7 MG/DL PROTEIN, TOTAL (test code = 7.2 G/DL 2228) ALBUMIN (test code = 2201) 4.4 G/DL CALC GLOBULIN (test code = 2.8 G/DL 2239) CALC A/G RATIO (test code = 1.6 RATIO 2234) BILIRUBIN, TOTAL (test code = 0.6 MG/DL 2206) ALKALINE PHOSPHATASE (test 61 U/L code = 2204) AST (test code = 2218) 17 U/L ALT (test code = 2219) 14 U/L LIPID [id number] 00:00:00 Test Item Value Reference Range Interpretation Comments CHOLESTEROL (test code = 2210) 214 MG/DL TRIGLYCERIDES (test code = 2232) 144 MG/DL HDL CHOLESTEROL (test code = 2220) 48 MG/DL CALC LDL CHOL (test code = 2237) 139 MG/DL RISK RATIO LDL/HDL (test code = 2.90 RATIO 2238) LIPID [id number] 00:00:00 Test Item Value Reference Range Interpretation Comments CHOLESTEROL (test code = 2210) 214 MG/DL TRIGLYCERIDES (test code = 2232) 144 MG/DL HDL CHOLESTEROL (test code = 2220) 48 MG/DL CALC LDL CHOL (test code = 2237) 139 MG/DL RISK RATIO LDL/HDL (test code = 2.90 RATIO 2238) COMPREHENSIVE METABOLIC [id number] 00:00:00 Test Item Value Reference Range Interpretation Comments GLUCOSE (test code = 2217) 71 MG/DL BUN (test code = 2208) 11 MG/DL CREATININE (test code = 2214) 0.99 MG/DL eGFR AMER. (test code 103 ML/MIN/1.73 = 66351) eGFR NON- AMER. (test 89 ML/MIN/1.73 code = 23754) CALC BUN/CREAT (test code = 11 RATIO 2235) SODIUM (test code = 2231) 145 MEQ/L POTASSIUM (test code = 2228) 4.3 MEQ/L CHLORIDE (test code = 2215) 104 MEQ/L CARBON DIOXIDE (test code = 26 MEQ/L 2205) CALCIUM (test code = 2209) 9.7 MG/DL PROTEIN, TOTAL (test code = 7.2 G/DL 222) ALBUMIN (test code = 2201) 4.4 G/DL CALC GLOBULIN (test code = 2.8 G/DL 2240) CALC A/G RATIO (test code = 1.6 RATIO 2234) BILIRUBIN, TOTAL (test code = 0.6 MG/DL 220) ALKALINE PHOSPHATASE (test 61 U/L code = 2204) AST (test code = 2218) 17 U/L ALT (test code = 2219) 14 U/L COMPREHENSIVE METABOLIC [id number] 00:00:00 Test Item Value Reference Range Interpretation Comments GLUCOSE (test code = 2217) 71 MG/DL BUN (test code = 2208) 11 MG/DL CREATININE (test code = 2214) 0.99 MG/DL eGFR AMER. (test code 103 ML/MIN/1.73 = 89156) eGFR NON- AMER. (test 89 ML/MIN/1.73 code = 23297) CALC BUN/CREAT (test code = 11 RATIO 2235) SODIUM (test code = 2231) 145 MEQ/L POTASSIUM (test code = 2228) 4.3 MEQ/L CHLORIDE (test code = 2215) 104 MEQ/L CARBON DIOXIDE (test code = 26 MEQ/L 2205) CALCIUM (test code = 2209) 9.7 MG/DL PROTEIN, TOTAL (test code = 7.2 G/DL 2228) ALBUMIN (test code = 2201) 4.4 G/DL CALC GLOBULIN (test code = 2.8 G/DL 2240) CALC A/G RATIO (test code = 1.6 RATIO 2234) BILIRUBIN, TOTAL (test code = 0.6 MG/DL 7) ALKALINE PHOSPHATASE (test 61 U/L code = 2204) AST (test code = 2218) 17 U/L ALT (test code = 2219) 14 U/L CBC W/AUTO [id number] 00:00:00 Test Item Value Reference Range Interpretation Comments WBC (test code = 1001) 3.5 K/UL RBC (test code = 1002) 4.41 M/UL HEMOGLOBIN (test code = 1003) 13.6 G/DL HEMATOCRIT (test code = 1004) 39.7 % MCV (test code = 1005) 90.0 fL MCH (test code = 1006) 30.8 PG MCHC (test code = 1007) 34.3 G/DL RDW (test code = 1038) 13.4 % NEUTROPHILS (test code = 1008) 33.3 % LYMPHOCYTES (test code = 1010) 55.5 % MONOCYTES (test code = 1011) 8.6 % EOSINOPHILS (test code = 1012) 2.0 % BASOPHILS (test code = 1013) 0.6 % IMMATURE GRANULOCYTES (test 0.0 % code = 1036) NUCLEATED RBCS (test code = 0.0 /100WBC'S 1065) PLATELET COUNT (test code = 154 K/UL 1015) ABSOLUTE NEUTROPHILS (test code 1.16 K/UL = 1066) ABSOLUTE LYMPHOCYTES (test code 1.93 K/UL = 1067) ABSOLUTE MONOCYTES (test code = 0.30 K/UL 1068) ABSOLUTE EOSINOPHILS (test code 0.07 K/UL = 1040) ABSOLUTE BASOPHILS (test code = 0.02 K/UL 1069) ABS IMMATURE GRANULOCYTES (test 0.00 K/UL code = 1020) ABS NUCLEATED RBCS (test code = 0.00 K/UL 00049) CBC W/AUTO [id number] 00:00:00 Test Item Value Reference Range Interpretation Comments WBC (test code = 1001) 3.5 K/UL RBC (test code = 1002) 4.41 M/UL HEMOGLOBIN (test code = 1003) 13.6 G/DL HEMATOCRIT (test code = 1004) 39.7 % MCV (test code = 1005) 90.0 fL MCH (test code = 1006) 30.8 PG MCHC (test code = 1007) 34.3 G/DL RDW (test code = 1038) 13.4 % NEUTROPHILS (test code = 1008) 33.3 % LYMPHOCYTES (test code = 1010) 55.5 % MONOCYTES (test code = 1011) 8.6 % EOSINOPHILS (test code = 1012) 2.0 % BASOPHILS (test code = 1013) 0.6 % IMMATURE GRANULOCYTES (test 0.0 % code = 1036) NUCLEATED RBCS (test code = 0.0 /100WBC'S 1065) PLATELET COUNT (test code = 154 K/UL 1015) ABSOLUTE NEUTROPHILS (test code 1.16 K/UL = 1066) ABSOLUTE LYMPHOCYTES (test code 1.93 K/UL = 1067) ABSOLUTE MONOCYTES (test code = 0.30 K/UL 1068) ABSOLUTE EOSINOPHILS (test code 0.07 K/UL = 1040) ABSOLUTE BASOPHILS (test code = 0.02 K/UL 1069) ABS IMMATURE GRANULOCYTES (test 0.00 K/UL code = 1020) ABS NUCLEATED RBCS (test code = 0.00 K/UL 59245) CBC W/AUTO [id number] 00:00:00 Test Item Value Reference Range Interpretation Comments WBC (test code = 1001) 3.5 K/UL RBC (test code = 1002) 4.41 M/UL HEMOGLOBIN (test code = 1003) 13.6 G/DL HEMATOCRIT (test code = 1004) 39.7 % MCV (test code = 1005) 90.0 fL MCH (test code = 1006) 30.8 PG MCHC (test code = 1007) 34.3 G/DL RDW (test code = 1038) 13.4 % NEUTROPHILS (test code = 1008) 33.3 % LYMPHOCYTES (test code = 1010) 55.5 % MONOCYTES (test code = 1011) 8.6 % EOSINOPHILS (test code = 1012) 2.0 % BASOPHILS (test code = 1013) 0.6 % IMMATURE GRANULOCYTES (test 0.0 % code = 1036) NUCLEATED RBCS (test code = 0.0 /100WBC'S 1065) PLATELET COUNT (test code = 154 K/UL 1015) ABSOLUTE NEUTROPHILS (test code 1.16 K/UL = 1066) ABSOLUTE LYMPHOCYTES (test code 1.93 K/UL = 1067) ABSOLUTE MONOCYTES (test code = 0.30 K/UL 1068) ABSOLUTE EOSINOPHILS (test code 0.07 K/UL = 1040) ABSOLUTE BASOPHILS (test code = 0.02 K/UL 1069) ABS IMMATURE GRANULOCYTES (test 0.00 K/UL code = 1020) ABS NUCLEATED RBCS (test code = 0.00 K/UL 33174) COMPREHENSIVE METABOLIC [id number] 00:00:00 Test Item Value Reference Range Interpretation Comments GLUCOSE (test code = 2217) 90 MG/DL BUN (test code = 2208) 12 MG/DL CREATININE (test code = 2214) 1.01 MG/DL eGFR AMER. (test code 101 ML/MIN/1.73 = 67846) eGFR NON- AMER. (test 87 ML/MIN/1.73 code = 02572) CALC BUN/CREAT (test code = 12 RATIO 2235) SODIUM (test code = 2231) 142 MEQ/L POTASSIUM (test code = 2228) 4.2 MEQ/L CHLORIDE (test code = 2215) 104 MEQ/L CARBON DIOXIDE (test code = 27 MEQ/L 2206) CALCIUM (test code = 2209) 9.2 MG/DL PROTEIN, TOTAL (test code = 7.8 G/DL 2228) ALBUMIN (test code = 2201) 4.5 G/DL CALC GLOBULIN (test code = 3.3 G/DL 2240) CALC A/G RATIO (test code = 1.4 RATIO 2234) BILIRUBIN, TOTAL (test code = 0.6 MG/DL 2206) ALKALINE PHOSPHATASE (test 62 U/L code = 2204) AST (test code = 2218) 20 U/L ALT (test code = 2219) 21 U/L COMPREHENSIVE METABOLIC [id number] 00:00:00 Test Item Value Reference Range Interpretation Comments GLUCOSE (test code = 2217) 90 MG/DL BUN (test code = 2208) 12 MG/DL CREATININE (test code = 2214) 1.01 MG/DL eGFR AMER. (test code 101 ML/MIN/1.73 = 68585) eGFR NON- AMER. (test 87 ML/MIN/1.73 code = 39159) CALC BUN/CREAT (test code = 12 RATIO 2235) SODIUM (test code = 2231) 142 MEQ/L POTASSIUM (test code = 2228) 4.2 MEQ/L CHLORIDE (test code = 2215) 104 MEQ/L CARBON DIOXIDE (test code = 27 MEQ/L 2206) CALCIUM (test code = 2209) 9.2 MG/DL PROTEIN, TOTAL (test code = 7.8 G/DL 2228) ALBUMIN (test code = 2201) 4.5 G/DL CALC GLOBULIN (test code = 3.3 G/DL 2240) CALC A/G RATIO (test code = 1.4 RATIO 2234) BILIRUBIN, TOTAL (test code = 0.6 MG/DL 2206) ALKALINE PHOSPHATASE (test 62 U/L code = 2204) AST (test code = 2218) 20 U/L ALT (test code = 2219) 21 U/L LIPID [id number] 00:00:00 Test Item Value Reference Range Interpretation Comments CHOLESTEROL (test code = 2210) 203 MG/DL TRIGLYCERIDES (test code = 2232) 103 MG/DL HDL CHOLESTEROL (test code = 2220) 43 MG/DL CALC LDL CHOL (test code = 2237) 138 MG/DL RISK RATIO LDL/HDL (test code = 3.21 RATIO 2238) LIPID [id number] 00:00:00 Test Item Value Reference Range Interpretation Comments CHOLESTEROL (test code = 2210) 203 MG/DL TRIGLYCERIDES (test code = 2232) 103 MG/DL HDL CHOLESTEROL (test code = 2220) 43 MG/DL CALC LDL CHOL (test code = 2237) 138 MG/DL RISK RATIO LDL/HDL (test code = 3.21 RATIO 2238) CBC W/AUTO [id number] 00:00:00 Test Item Value Reference Range Interpretation Comments WBC (test code = 1001) 3.5 K/UL RBC (test code = 1002) 4.41 M/UL HEMOGLOBIN (test code = 1003) 13.6 G/DL HEMATOCRIT (test code = 1004) 39.7 % MCV (test code = 1005) 90.0 fL MCH (test code = 1006) 30.8 PG MCHC (test code = 1007) 34.3 G/DL RDW (test code = 1038) 13.4 % NEUTROPHILS (test code = 1008) 33.3 % LYMPHOCYTES (test code = 1010) 55.5 % MONOCYTES (test code = 1011) 8.6 % EOSINOPHILS (test code = 1012) 2.0 % BASOPHILS (test code = 1013) 0.6 % IMMATURE GRANULOCYTES (test 0.0 % code = 1036) NUCLEATED RBCS (test code = 0.0 /100WBC'S 1065) PLATELET COUNT (test code = 154 K/UL 1015) ABSOLUTE NEUTROPHILS (test code 1.16 K/UL = 1066) ABSOLUTE LYMPHOCYTES (test code 1.93 K/UL = 1067) ABSOLUTE MONOCYTES (test code = 0.30 K/UL 1068) ABSOLUTE EOSINOPHILS (test code 0.07 K/UL = 1040) ABSOLUTE BASOPHILS (test code = 0.02 K/UL 1069) ABS IMMATURE GRANULOCYTES (test 0.00 K/UL code = 1020) ABS NUCLEATED RBCS (test code = 0.00 K/UL 67739) CBC W/AUTO [id number] 00:00:00 Test Item Value Reference Range Interpretation Comments WBC (test code = 1001) 3.5 K/UL RBC (test code = 1002) 4.41 M/UL HEMOGLOBIN (test code = 1003) 13.6 G/DL HEMATOCRIT (test code = 1004) 39.7 % MCV (test code = 1005) 90.0 fL MCH (test code = 1006) 30.8 PG MCHC (test code = 1007) 34.3 G/DL RDW (test code = 1038) 13.4 % NEUTROPHILS (test code = 1008) 33.3 % LYMPHOCYTES (test code = 1010) 55.5 % MONOCYTES (test code = 1011) 8.6 % EOSINOPHILS (test code = 1012) 2.0 % BASOPHILS (test code = 1013) 0.6 % IMMATURE GRANULOCYTES (test 0.0 % code = 1036) NUCLEATED RBCS (test code = 0.0 /100WBC'S 1065) PLATELET COUNT (test code = 154 K/UL 1015) ABSOLUTE NEUTROPHILS (test code 1.16 K/UL = 1066) ABSOLUTE LYMPHOCYTES (test code 1.93 K/UL = 1067) ABSOLUTE MONOCYTES (test code = 0.30 K/UL 1068) ABSOLUTE EOSINOPHILS (test code 0.07 K/UL = 1040) ABSOLUTE BASOPHILS (test code = 0.02 K/UL 1069) ABS IMMATURE GRANULOCYTES (test 0.00 K/UL code = 1020) ABS NUCLEATED RBCS (test code = 0.00 K/UL 50287) CBC W/AUTO [id number] 00:00:00 Test Item Value Reference Range Interpretation Comments WBC (test code = 1001) 3.5 K/UL RBC (test code = 1002) 4.41 M/UL HEMOGLOBIN (test code = 1003) 13.6 G/DL HEMATOCRIT (test code = 1004) 39.7 % MCV (test code = 1005) 90.0 fL MCH (test code = 1006) 30.8 PG MCHC (test code = 1007) 34.3 G/DL RDW (test code = 1038) 13.4 % NEUTROPHILS (test code = 1008) 33.3 % LYMPHOCYTES (test code = 1010) 55.5 % MONOCYTES (test code = 1011) 8.6 % EOSINOPHILS (test code = 1012) 2.0 % BASOPHILS (test code = 1013) 0.6 % IMMATURE GRANULOCYTES (test 0.0 % code = 1036) NUCLEATED RBCS (test code = 0.0 /100WBC'S 1065) PLATELET COUNT (test code = 154 K/UL 1015) ABSOLUTE NEUTROPHILS (test code 1.16 K/UL = 1066) ABSOLUTE LYMPHOCYTES (test code 1.93 K/UL = 1067) ABSOLUTE MONOCYTES (test code = 0.30 K/UL 1068) ABSOLUTE EOSINOPHILS (test code 0.07 K/UL = 1040) ABSOLUTE BASOPHILS (test code = 0.02 K/UL 1069) ABS IMMATURE GRANULOCYTES (test 0.00 K/UL code = 1020) ABS NUCLEATED RBCS (test code = 0.00 K/UL 28900) COMPREHENSIVE METABOLIC [id number] 00:00:00 Test Item Value Reference Range Interpretation Comments GLUCOSE (test code = 2217) 90 MG/DL BUN (test code = 2208) 12 MG/DL CREATININE (test code = 2214) 1.01 MG/DL eGFR AMER. (test code 101 ML/MIN/1.73 = 08896) eGFR NON- AMER. (test 87 ML/MIN/1.73 code = 22535) CALC BUN/CREAT (test code = 12 RATIO 2235) SODIUM (test code = 2231) 142 MEQ/L POTASSIUM (test code = 2228) 4.2 MEQ/L CHLORIDE (test code = 2215) 104 MEQ/L CARBON DIOXIDE (test code = 27 MEQ/L 2206) CALCIUM (test code = 2209) 9.2 MG/DL PROTEIN, TOTAL (test code = 7.8 G/DL 2228) ALBUMIN (test code = 2201) 4.5 G/DL CALC GLOBULIN (test code = 3.3 G/DL 2240) CALC A/G RATIO (test code = 1.4 RATIO 2234) BILIRUBIN, TOTAL (test code = 0.6 MG/DL 220) ALKALINE PHOSPHATASE (test 62 U/L code = 2204) AST (test code = 2218) 20 U/L ALT (test code = 2219) 21 U/L COMPREHENSIVE METABOLIC [id number] 00:00:00 Test Item Value Reference Range Interpretation Comments GLUCOSE (test code = 2217) 90 MG/DL BUN (test code = 2208) 12 MG/DL CREATININE (test code = 2214) 1.01 MG/DL eGFR AMER. (test code 101 ML/MIN/1.73 = 42361) eGFR NON- AMER. (test 87 ML/MIN/1.73 code = 50396) CALC BUN/CREAT (test code = 12 RATIO 2235) SODIUM (test code = 2231) 142 MEQ/L POTASSIUM (test code = 2228) 4.2 MEQ/L CHLORIDE (test code = 2215) 104 MEQ/L CARBON DIOXIDE (test code = 27 MEQ/L 2205) CALCIUM (test code = 2209) 9.2 MG/DL PROTEIN, TOTAL (test code = 7.8 G/DL 2228) ALBUMIN (test code = 2201) 4.5 G/DL CALC GLOBULIN (test code = 3.3 G/DL 224) CALC A/G RATIO (test code = 1.4 RATIO 2234) BILIRUBIN, TOTAL (test code = 0.6 MG/DL 2206) ALKALINE PHOSPHATASE (test 62 U/L code = 2204) AST (test code = 2218) 20 U/L ALT (test code = 2219) 21 U/L LIPID [id number] 00:00:00 Test Item Value Reference Range Interpretation Comments CHOLESTEROL (test code = 2210) 203 MG/DL TRIGLYCERIDES (test code = 2232) 103 MG/DL HDL CHOLESTEROL (test code = 2220) 43 MG/DL CALC LDL CHOL (test code = 2237) 138 MG/DL RISK RATIO LDL/HDL (test code = 3.21 RATIO 2238) LIPID [id number] 00:00:00 Test Item Value Reference Range Interpretation Comments CHOLESTEROL (test code = 2210) 203 MG/DL TRIGLYCERIDES (test code = 2232) 103 MG/DL HDL CHOLESTEROL (test code = 2220) 43 MG/DL CALC LDL CHOL (test code = 2237) 138 MG/DL RISK RATIO LDL/HDL (test code = 3.21 RATIO 2238) CBC W/AUTO [id number] 00:00:00 Test Item Value Reference Range Interpretation Comments WBC (test code = 1001) 3.5 K/UL RBC (test code = 1002) 4.41 M/UL HEMOGLOBIN (test code = 1003) 13.6 G/DL HEMATOCRIT (test code = 1004) 39.7 % MCV (test code = 1005) 90.0 fL MCH (test code = 1006) 30.8 PG MCHC (test code = 1007) 34.3 G/DL RDW (test code = 1038) 13.4 % NEUTROPHILS (test code = 1008) 33.3 % LYMPHOCYTES (test code = 1010) 55.5 % MONOCYTES (test code = 1011) 8.6 % EOSINOPHILS (test code = 1012) 2.0 % BASOPHILS (test code = 1013) 0.6 % IMMATURE GRANULOCYTES (test 0.0 % code = 1036) NUCLEATED RBCS (test code = 0.0 /100WBC'S 1065) PLATELET COUNT (test code = 154 K/UL 1015) ABSOLUTE NEUTROPHILS (test code 1.16 K/UL = 1066) ABSOLUTE LYMPHOCYTES (test code 1.93 K/UL = 1067) ABSOLUTE MONOCYTES (test code = 0.30 K/UL 1068) ABSOLUTE EOSINOPHILS (test code 0.07 K/UL = 1040) ABSOLUTE BASOPHILS (test code = 0.02 K/UL 1069) ABS IMMATURE GRANULOCYTES (test 0.00 K/UL code = 1020) ABS NUCLEATED RBCS (test code = 0.00 K/UL 71180) CBC W/AUTO [id number] 00:00:00 Test Item Value Reference Range Interpretation Comments WBC (test code = 1001) 3.5 K/UL RBC (test code = 1002) 4.41 M/UL HEMOGLOBIN (test code = 1003) 13.6 G/DL HEMATOCRIT (test code = 1004) 39.7 % MCV (test code = 1005) 90.0 fL MCH (test code = 1006) 30.8 PG MCHC (test code = 1007) 34.3 G/DL RDW (test code = 1038) 13.4 % NEUTROPHILS (test code = 1008) 33.3 % LYMPHOCYTES (test code = 1010) 55.5 % MONOCYTES (test code = 1011) 8.6 % EOSINOPHILS (test code = 1012) 2.0 % BASOPHILS (test code = 1013) 0.6 % IMMATURE GRANULOCYTES (test 0.0 % code = 1036) NUCLEATED RBCS (test code = 0.0 /100WBC'S 1065) PLATELET COUNT (test code = 154 K/UL 1015) ABSOLUTE NEUTROPHILS (test code 1.16 K/UL = 1066) ABSOLUTE LYMPHOCYTES (test code 1.93 K/UL = 1067) ABSOLUTE MONOCYTES (test code = 0.30 K/UL 1068) ABSOLUTE EOSINOPHILS (test code 0.07 K/UL = 1040) ABSOLUTE BASOPHILS (test code = 0.02 K/UL 1069) ABS IMMATURE GRANULOCYTES (test 0.00 K/UL code = 1020) ABS NUCLEATED RBCS (test code = 0.00 K/UL 34774) CBC W/AUTO [id number] 00:00:00 Test Item Value Reference Range Interpretation Comments WBC (test code = 1001) 3.5 K/UL RBC (test code = 1002) 4.41 M/UL HEMOGLOBIN (test code = 1003) 13.6 G/DL HEMATOCRIT (test code = 1004) 39.7 % MCV (test code = 1005) 90.0 fL MCH (test code = 1006) 30.8 PG MCHC (test code = 1007) 34.3 G/DL RDW (test code = 1038) 13.4 % NEUTROPHILS (test code = 1008) 33.3 % LYMPHOCYTES (test code = 1010) 55.5 % MONOCYTES (test code = 1011) 8.6 % EOSINOPHILS (test code = 1012) 2.0 % BASOPHILS (test code = 1013) 0.6 % IMMATURE GRANULOCYTES (test 0.0 % code = 1036) NUCLEATED RBCS (test code = 0.0 /100WBC'S 1065) PLATELET COUNT (test code = 154 K/UL 1015) ABSOLUTE NEUTROPHILS (test code 1.16 K/UL = 1066) ABSOLUTE LYMPHOCYTES (test code 1.93 K/UL = 1067) ABSOLUTE MONOCYTES (test code = 0.30 K/UL 1068) ABSOLUTE EOSINOPHILS (test code 0.07 K/UL = 1040) ABSOLUTE BASOPHILS (test code = 0.02 K/UL 1069) ABS IMMATURE GRANULOCYTES (test 0.00 K/UL code = 1020) ABS NUCLEATED RBCS (test code = 0.00 K/UL 45225) COMPREHENSIVE METABOLIC [id number] 00:00:00 Test Item Value Reference Range Interpretation Comments GLUCOSE (test code = 2217) 90 MG/DL BUN (test code = 2208) 12 MG/DL CREATININE (test code = 2214) 1.01 MG/DL eGFR AMER. (test code 101 ML/MIN/1.73 = 79042) eGFR NON- AMER. (test 87 ML/MIN/1.73 code = 87010) CALC BUN/CREAT (test code = 12 RATIO 2235) SODIUM (test code = 2231) 142 MEQ/L POTASSIUM (test code = 2228) 4.2 MEQ/L CHLORIDE (test code = 2215) 104 MEQ/L CARBON DIOXIDE (test code = 27 MEQ/L 220) CALCIUM (test code = 2209) 9.2 MG/DL PROTEIN, TOTAL (test code = 7.8 G/DL 2228) ALBUMIN (test code = 2201) 4.5 G/DL CALC GLOBULIN (test code = 3.3 G/DL 2240) CALC A/G RATIO (test code = 1.4 RATIO 2234) BILIRUBIN, TOTAL (test code = 0.6 MG/DL 2206) ALKALINE PHOSPHATASE (test 62 U/L code = 2204) AST (test code = 2218) 20 U/L ALT (test code = 2219) 21 U/L COMPREHENSIVE METABOLIC [id number] 00:00:00 Test Item Value Reference Range Interpretation Comments GLUCOSE (test code = 2217) 90 MG/DL BUN (test code = 2208) 12 MG/DL CREATININE (test code = 2214) 1.01 MG/DL eGFR AMER. (test code 101 ML/MIN/1.73 = 76839) eGFR NON- AMER. (test 87 ML/MIN/1.73 code = 83566) CALC BUN/CREAT (test code = 12 RATIO 2235) SODIUM (test code = 2231) 142 MEQ/L POTASSIUM (test code = 2228) 4.2 MEQ/L CHLORIDE (test code = 2215) 104 MEQ/L CARBON DIOXIDE (test code = 27 MEQ/L 2206) CALCIUM (test code = 2209) 9.2 MG/DL PROTEIN, TOTAL (test code = 7.8 G/DL 2228) ALBUMIN (test code = 2201) 4.5 G/DL CALC GLOBULIN (test code = 3.3 G/DL 2240) CALC A/G RATIO (test code = 1.4 RATIO 2234) BILIRUBIN, TOTAL (test code = 0.6 MG/DL 2206) ALKALINE PHOSPHATASE (test 62 U/L code = 2204) AST (test code = 2218) 20 U/L ALT (test code = 2219) 21 U/L LIPID [id number] 00:00:00 Test Item Value Reference Range Interpretation Comments CHOLESTEROL (test code = 2210) 203 MG/DL TRIGLYCERIDES (test code = 2232) 103 MG/DL HDL CHOLESTEROL (test code = 2220) 43 MG/DL CALC LDL CHOL (test code = 2237) 138 MG/DL RISK RATIO LDL/HDL (test code = 3.21 RATIO 2238) LIPID [id number] 00:00:00 Test Item Value Reference Range Interpretation Comments CHOLESTEROL (test code = 2210) 203 MG/DL TRIGLYCERIDES (test code = 2232) 103 MG/DL HDL CHOLESTEROL (test code = 2220) 43 MG/DL CALC LDL CHOL (test code = 2237) 138 MG/DL RISK RATIO LDL/HDL (test code = 3.21 RATIO 2238) HEMOGLOBIN [id number] 00:00:00 Test Item Value Reference Range Interpretation Comments HEMOGLOBIN A1c (test code = 50512) 5.7 % HEMOGLOBIN [id number] 00:00:00 Test Item Value Reference Range Interpretation Comments HEMOGLOBIN A1c (test code = 15747) 5.7 % HEMOGLOBIN [id number] 00:00:00 Test Item Value Reference Range Interpretation Comments HEMOGLOBIN A1c (test code = 49810) 5.7 % COMPREHENSIVE METABOLIC [id number] 00:00:00 Test Item Value Reference Range Interpretation Comments GLUCOSE (test code = 2217) 79 MG/DL BUN (test code = 2208) 13 MG/DL CREATININE (test code = 2214) 1.08 MG/DL eGFR AMER. (test code 94 ML/MIN/1.73 = 10838) eGFR NON- AMER. (test 81 ML/MIN/1.73 code = 62370) CALC BUN/CREAT (test code = 12 RATIO 2235) SODIUM (test code = 2231) 143 MEQ/L POTASSIUM (test code = 2228) 4.2 MEQ/L CHLORIDE (test code = 2215) 105 MEQ/L CARBON DIOXIDE (test code = 26 MEQ/L 2205) CALCIUM (test code = 2209) 9.4 MG/DL PROTEIN, TOTAL (test code = 7.8 G/DL 222) ALBUMIN (test code = 2201) 4.7 G/DL CALC GLOBULIN (test code = 3.1 G/DL 2240) CALC A/G RATIO (test code = 1.5 RATIO 2234) BILIRUBIN, TOTAL (test code = 0.8 MG/DL 220) ALKALINE PHOSPHATASE (test 65 U/L code = 2204) AST (test code = 2218) 16 U/L ALT (test code = 2219) 17 U/L COMPREHENSIVE METABOLIC [id number] 00:00:00 Test Item Value Reference Range Interpretation Comments GLUCOSE (test code = 2217) 79 MG/DL BUN (test code = 2208) 13 MG/DL CREATININE (test code = 2214) 1.08 MG/DL eGFR AMER. (test code 94 ML/MIN/1.73 = 03343) eGFR NON- AMER. (test 81 ML/MIN/1.73 code = 44809) CALC BUN/CREAT (test code = 12 RATIO 2235) SODIUM (test code = 2231) 143 MEQ/L POTASSIUM (test code = 2228) 4.2 MEQ/L CHLORIDE (test code = 2215) 105 MEQ/L CARBON DIOXIDE (test code = 26 MEQ/L 2205) CALCIUM (test code = 2209) 9.4 MG/DL PROTEIN, TOTAL (test code = 7.8 G/DL 2228) ALBUMIN (test code = 2201) 4.7 G/DL CALC GLOBULIN (test code = 3.1 G/DL 2240) CALC A/G RATIO (test code = 1.5 RATIO 2234) BILIRUBIN, TOTAL (test code = 0.8 MG/DL 2207) ALKALINE PHOSPHATASE (test 65 U/L code = 2204) AST (test code = 2218) 16 U/L ALT (test code = 2219) 17 U/L LIPID [id number] 00:00:00 Test Item Value Reference Range Interpretation Comments CHOLESTEROL (test code = 2210) 218 MG/DL TRIGLYCERIDES (test code = 2232) 113 MG/DL HDL CHOLESTEROL (test code = 2220) 49 MG/DL CALC LDL CHOL (test code = 2237) 146 MG/DL RISK RATIO LDL/HDL (test code = 2.98 RATIO 2238) LIPID [id number] 00:00:00 Test Item Value Reference Range Interpretation Comments CHOLESTEROL (test code = 2210) 218 MG/DL TRIGLYCERIDES (test code = 2232) 113 MG/DL HDL CHOLESTEROL (test code = 2220) 49 MG/DL CALC LDL CHOL (test code = 2237) 146 MG/DL RISK RATIO LDL/HDL (test code = 2.98 RATIO 2238) HEMOGLOBIN [id number] 00:00:00 Test Item Value Reference Range Interpretation Comments HEMOGLOBIN A1c (test code = 25616) 5.7 % HEMOGLOBIN [id number] 00:00:00 Test Item Value Reference Range Interpretation Comments HEMOGLOBIN A1c (test code = 31751) 5.7 % HEMOGLOBIN [id number] 00:00:00 Test Item Value Reference Range Interpretation Comments HEMOGLOBIN A1c (test code = 49940) 5.7 % COMPREHENSIVE METABOLIC [id number] 00:00:00 Test Item Value Reference Range Interpretation Comments GLUCOSE (test code = 2217) 79 MG/DL BUN (test code = 2208) 13 MG/DL CREATININE (test code = 2214) 1.08 MG/DL eGFR AMER. (test code 94 ML/MIN/1.73 = 04686) eGFR NON- AMER. (test 81 ML/MIN/1.73 code = 60803) CALC BUN/CREAT (test code = 12 RATIO 2235) SODIUM (test code = 2231) 143 MEQ/L POTASSIUM (test code = 2228) 4.2 MEQ/L CHLORIDE (test code = 2215) 105 MEQ/L CARBON DIOXIDE (test code = 26 MEQ/L 2205) CALCIUM (test code = 2209) 9.4 MG/DL PROTEIN, TOTAL (test code = 7.8 G/DL 2228) ALBUMIN (test code = 2201) 4.7 G/DL CALC GLOBULIN (test code = 3.1 G/DL 2240) CALC A/G RATIO (test code = 1.5 RATIO 2234) BILIRUBIN, TOTAL (test code = 0.8 MG/DL 2206) ALKALINE PHOSPHATASE (test 65 U/L code = 2204) AST (test code = 2218) 16 U/L ALT (test code = 2219) 17 U/L COMPREHENSIVE METABOLIC [id number] 00:00:00 Test Item Value Reference Range Interpretation Comments GLUCOSE (test code = 2217) 79 MG/DL BUN (test code = 2208) 13 MG/DL CREATININE (test code = 2214) 1.08 MG/DL eGFR AMER. (test code 94 ML/MIN/1.73 = 32884) eGFR NON- AMER. (test 81 ML/MIN/1.73 code = 56195) CALC BUN/CREAT (test code = 12 RATIO 2235) SODIUM (test code = 2231) 143 MEQ/L POTASSIUM (test code = 2228) 4.2 MEQ/L CHLORIDE (test code = 2215) 105 MEQ/L CARBON DIOXIDE (test code = 26 MEQ/L 2205) CALCIUM (test code = 2209) 9.4 MG/DL PROTEIN, TOTAL (test code = 7.8 G/DL 2228) ALBUMIN (test code = 2201) 4.7 G/DL CALC GLOBULIN (test code = 3.1 G/DL 224) CALC A/G RATIO (test code = 1.5 RATIO 4) BILIRUBIN, TOTAL (test code = 0.8 MG/DL 2206) ALKALINE PHOSPHATASE (test 65 U/L code = 2204) AST (test code = 2218) 16 U/L ALT (test code = 2219) 17 U/L LIPID [id number] 00:00:00 Test Item Value Reference Range Interpretation Comments CHOLESTEROL (test code = 2210) 218 MG/DL TRIGLYCERIDES (test code = 2232) 113 MG/DL HDL CHOLESTEROL (test code = 2220) 49 MG/DL CALC LDL CHOL (test code = 2237) 146 MG/DL RISK RATIO LDL/HDL (test code = 2.98 RATIO 2238) LIPID [id number] 00:00:00 Test Item Value Reference Range Interpretation Comments CHOLESTEROL (test code = 2210) 218 MG/DL TRIGLYCERIDES (test code = 2232) 113 MG/DL HDL CHOLESTEROL (test code = 2220) 49 MG/DL CALC LDL CHOL (test code = 2237) 146 MG/DL RISK RATIO LDL/HDL (test code = 2.98 RATIO 2238) HEMOGLOBIN [id number] 00:00:00 Test Item Value Reference Range Interpretation Comments HEMOGLOBIN A1c (test code = 04703) 5.7 % HEMOGLOBIN [id number] 00:00:00 Test Item Value Reference Range Interpretation Comments HEMOGLOBIN A1c (test code = 23149) 5.7 % HEMOGLOBIN [id number] 00:00:00 Test Item Value Reference Range Interpretation Comments HEMOGLOBIN A1c (test code = 52245) 5.7 % COMPREHENSIVE METABOLIC [id number] 00:00:00 Test Item Value Reference Range Interpretation Comments GLUCOSE (test code = 2217) 79 MG/DL BUN (test code = 2208) 13 MG/DL CREATININE (test code = 2214) 1.08 MG/DL eGFR AMER. (test code 94 ML/MIN/1.73 = 08242) eGFR NON- AMER. (test 81 ML/MIN/1.73 code = 73953) CALC BUN/CREAT (test code = 12 RATIO 2235) SODIUM (test code = 2231) 143 MEQ/L POTASSIUM (test code = 2228) 4.2 MEQ/L CHLORIDE (test code = 2215) 105 MEQ/L CARBON DIOXIDE (test code = 26 MEQ/L 2205) CALCIUM (test code = 2209) 9.4 MG/DL PROTEIN, TOTAL (test code = 7.8 G/DL 2228) ALBUMIN (test code = 2201) 4.7 G/DL CALC GLOBULIN (test code = 3.1 G/DL 0) CALC A/G RATIO (test code = 1.5 RATIO 4) BILIRUBIN, TOTAL (test code = 0.8 MG/DL 2206) ALKALINE PHOSPHATASE (test 65 U/L code = 2204) AST (test code = 2218) 16 U/L ALT (test code = 2219) 17 U/L COMPREHENSIVE METABOLIC [id number] 00:00:00 Test Item Value Reference Range Interpretation Comments GLUCOSE (test code = 2217) 79 MG/DL BUN (test code = 2208) 13 MG/DL CREATININE (test code = 2214) 1.08 MG/DL eGFR AMER. (test code 94 ML/MIN/1.73 = 83210) eGFR NON- AMER. (test 81 ML/MIN/1.73 code = 83407) CALC BUN/CREAT (test code = 12 RATIO 2235) SODIUM (test code = 2231) 143 MEQ/L POTASSIUM (test code = 2228) 4.2 MEQ/L CHLORIDE (test code = 2215) 105 MEQ/L CARBON DIOXIDE (test code = 26 MEQ/L 2205) CALCIUM (test code = 2209) 9.4 MG/DL PROTEIN, TOTAL (test code = 7.8 G/DL 2228) ALBUMIN (test code = 2201) 4.7 G/DL CALC GLOBULIN (test code = 3.1 G/DL 2239) CALC A/G RATIO (test code = 1.5 RATIO 4) BILIRUBIN, TOTAL (test code = 0.8 MG/DL 2206) ALKALINE PHOSPHATASE (test 65 U/L code = 2204) AST (test code = 2218) 16 U/L ALT (test code = 2219) 17 U/L LIPID [id number] 00:00:00 Test Item Value Reference Range Interpretation Comments CHOLESTEROL (test code = 2210) 218 MG/DL TRIGLYCERIDES (test code = 2232) 113 MG/DL HDL CHOLESTEROL (test code = 2220) 49 MG/DL CALC LDL CHOL (test code = 2237) 146 MG/DL RISK RATIO LDL/HDL (test code = 2.98 RATIO 2238) LIPID [id number] 00:00:00 Test Item Value Reference Range Interpretation Comments CHOLESTEROL (test code = 2210) 218 MG/DL TRIGLYCERIDES (test code = 2232) 113 MG/DL HDL CHOLESTEROL (test code = 2220) 49 MG/DL CALC LDL CHOL (test code = 2237) 146 MG/DL RISK RATIO LDL/HDL (test code = 2.98 RATIO 2238) [employer] AND INTELLIGENCE ENGINEER [id number] 00:00:00 Test Item Value Reference Range Interpretation Comments PACHECO (Sm) ANTIBODY (test code = <0.2 AI 83247) INTELLIGENCE ENGINEER ANTIBODY (test code = 47724) <0.2 AI [employer] AND INTELLIGENCE ENGINEER [id number] 00:00:00 Test Item Value Reference Range Interpretation Comments PACHE[employer] (Sm) ANTIBODY (test code = <0.2 AI 45393) INTELLIGENCE ENGINEER ANTIBODY (test code = 00055) <0.2 AI [employer] AND INTELLIGENCE ENGINEER [id number] 00:00:00 Test Item Value Reference Range Interpretation Comments [employer]HE[employer] (Sm) ANTIBODY (test code = <0.2 AI 11894) INTELLIGENCE ENGINEER ANTIBODY (test code = 87199) <0.2 AI [employer] AND INTELLIGENCE ENGINEER [id number] 00:00:00 Test Item Value Reference Range Interpretation Comments [employer]HE[employer] (Sm) ANTIBODY (test code = <0.2 AI 20204) INTELLIGENCE ENGINEER ANTIBODY (test code = 94497) <0.2 AI [employer] AND INTELLIGENCE ENGINEER [id number] 00:00:00 Test Item Value Reference Range Interpretation Comments [employer]HE[employer] (Sm) ANTIBODY (test code = <0.2 AI 26317) INTELLIGENCE ENGINEER ANTIBODY (test code = 62611) <0.2 AI [employer] AND INTELLIGENCE ENGINEER [id number] 00:00:00 Test Item Value Reference Range Interpretation Comments PACHE[employer] (Sm) ANTIBODY (test code = <0.2 AI 46177) INTELLIGENCE ENGINEER ANTIBODY (test code = 96596) <0.2 AI SEROTONIN, [id number] 00:00:00 Test Item Value Reference Range Interpretation Comments SEROTONIN, SERUM (test code = 4258) 81 ng/mL SEROTONIN, [id number] 00:00:00 Test Item Value Reference Range Interpretation Comments SEROTONIN, SERUM (test code = 4258) 81 ng/mL SEROTONIN, [id number] 00:00:00 Test Item Value Reference Range Interpretation Comments SEROTONIN, SERUM (test code = 4258) 81 ng/mL SEROTONIN, [id number] 00:00:00 Test Item Value Reference Range Interpretation Comments SEROTONIN, SERUM (test code = 4258) 81 ng/mL SEROTONIN, [id number] 00:00:00 Test Item Value Reference Range Interpretation Comments SEROTONIN, SERUM (test code = 4258) 81 ng/mL SEROTONIN, [id number] 00:00:00 Test Item Value Reference Range Interpretation Comments SEROTONIN, SERUM (test code = 4258) 81 ng/mL DNA DS [id number] 00:00:00 Test Item Value Reference Range Interpretation Comments dsDNA ANTIBODY (test code = 4287) 1.0 IU/ML DNA DS [id number] 00:00:00 Test Item Value Reference Range Interpretation Comments dsDNA ANTIBODY (test code = 4287) 1.0 IU/ML DNA DS [id number] 00:00:00 Test Item Value Reference Range Interpretation Comments dsDNA ANTIBODY (test code = 4287) 1.0 IU/ML DNA DS [id number] 00:00:00 Test Item Value Reference Range Interpretation Comments dsDNA ANTIBODY (test code = 4287) 1.0 IU/ML DNA DS [id number] 00:00:00 Test Item Value Reference Range Interpretation Comments dsDNA ANTIBODY (test code = 4287) 1.0 IU/ML DNA DS [id number] 00:00:00 Test Item Value Reference Range Interpretation Comments dsDNA ANTIBODY (test code = 4287) 1.0 IU/ML ACUTE HEPATITIS [id number] 00:00:00 Test Item Value Reference Range Interpretation Comments HEPATITIS A IgM (test code = NON-REACTIVE 54935) HEPATITIS B CORE IgM (test code NON-REACTIVE = 4644) HEPATITIS B SURF AG (test code = NON-REACTIVE 2739) HEPATITIS C ANTIBODY (test code NON-REACTIVE = 4675) HCV INDEX (test code = 13255) 0.10 INTERPRETATION HEPATITIS A: (NOTE) (test code = 2552) INTERPRETATION HEPATITIS B: (NOTE) (test code = 58098) INTERPRETATION HEPATITIS C: (NOTE) (test code = 65644) ACUTE HEPATITIS [id number] 00:00:00 Test Item Value Reference Range Interpretation Comments HEPATITIS A IgM (test code = NON-REACTIVE 13890) HEPATITIS B CORE IgM (test code NON-REACTIVE = 4644) HEPATITIS B SURF AG (test code = NON-REACTIVE 2739) HEPATITIS C ANTIBODY (test code NON-REACTIVE = 4675) HCV INDEX (test code = 50286) 0.10 INTERPRETATION HEPATITIS A: (NOTE) (test code = 2552) INTERPRETATION HEPATITIS B: (NOTE) (test code = 86385) INTERPRETATION HEPATITIS C: (NOTE) (test code = 62141) ACUTE HEPATITIS [id number] 00:00:00 Test Item Value Reference Range Interpretation Comments HEPATITIS A IgM (test code = NON-REACTIVE 49003) HEPATITIS B CORE IgM (test code NON-REACTIVE = 4644) HEPATITIS B SURF AG (test code = NON-REACTIVE 2739) HEPATITIS C ANTIBODY (test code NON-REACTIVE = 4675) HCV INDEX (test code = 98516) 0.10 INTERPRETATION HEPATITIS A: (NOTE) (test code = 2552) INTERPRETATION HEPATITIS B: (NOTE) (test code = 43823) INTERPRETATION HEPATITIS C: (NOTE) (test code = 90133) ACUTE HEPATITIS [id number] 00:00:00 Test Item Value Reference Range Interpretation Comments HEPATITIS A IgM (test code = NON-REACTIVE 27846) HEPATITIS B CORE IgM (test code NON-REACTIVE = 4644) HEPATITIS B SURF AG (test code = NON-REACTIVE 2739) HEPATITIS C ANTIBODY (test code NON-REACTIVE = 4675) HCV INDEX (test code = 16562) 0.10 INTERPRETATION HEPATITIS A: (NOTE) (test code = 2552) INTERPRETATION HEPATITIS B: (NOTE) (test code = 12691) INTERPRETATION HEPATITIS C: (NOTE) (test code = 72285) ACUTE HEPATITIS [id number] 00:00:00 Test Item Value Reference Range Interpretation Comments HEPATITIS A IgM (test code = NON-REACTIVE 92844) HEPATITIS B CORE IgM (test code NON-REACTIVE = 4644) HEPATITIS B SURF AG (test code = NON-REACTIVE 2739) HEPATITIS C ANTIBODY (test code NON-REACTIVE = 4675) HCV INDEX (test code = 48188) 0.10 INTERPRETATION HEPATITIS A: (NOTE) (test code = 2552) INTERPRETATION HEPATITIS B: (NOTE) (test code = 02589) INTERPRETATION HEPATITIS C: (NOTE) (test code = 38602) ACUTE HEPATITIS [id number] 00:00:00 Test Item Value Reference Range Interpretation Comments HEPATITIS A IgM (test code = NON-REACTIVE 50034) HEPATITIS B CORE IgM (test code NON-REACTIVE = 4644) HEPATITIS B SURF AG (test code = NON-REACTIVE 2739) HEPATITIS C ANTIBODY (test code NON-REACTIVE = 4675) HCV INDEX (test code = 66452) 0.10 INTERPRETATION HEPATITIS A: (NOTE) (test code = 2552) INTERPRETATION HEPATITIS B: (NOTE) (test code = 60738) INTERPRETATION HEPATITIS C: (NOTE) (test code = 60354) GC, AMPLIFIED, [id number] 00:00:00 Test Item Value Reference Range Interpretation Comments GONORRHEA, TMA (test code = 80238) NEGATIVE GC, AMPLIFIED, [id number] 00:00:00 Test Item Value Reference Range Interpretation Comments GONORRHEA, TMA (test code = 63618) NEGATIVE CHLAMYDIA, AMPLIFIED, [id number] 00:00:00 Test Item Value Reference Range Interpretation Comments CHLAMYDIA, TMA (test code = 33244) NEGATIVE CHLAMYDIA, AMPLIFIED, [id number] 00:00:00 Test Item Value Reference Range Interpretation Comments CHLAMYDIA, TMA (test code = 83373) NEGATIVE MOOSE NON-REFLEX TO [id number] 00:00:00 Test Item Value Reference Range Interpretation Comments ANTI-NUCLEAR ANTIBODIES (test code = POSITIVE 3506) MOOSE NON-REFLEX TO [id number] 00:00:00 Test Item Value Reference Range Interpretation Comments ANTI-NUCLEAR ANTIBODIES (test code = POSITIVE 3506) GC, AMPLIFIED, [id number] 00:00:00 Test Item Value Reference Range Interpretation Comments GONORRHEA, TMA (test code = 92142) NEGATIVE GC, AMPLIFIED, [id number] 00:00:00 Test Item Value Reference Range Interpretation Comments GONORRHEA, TMA (test code = 08613) NEGATIVE CHLAMYDIA, AMPLIFIED, [id number] 00:00:00 Test Item Value Reference Range Interpretation Comments CHLAMYDIA, TMA (test code = 60375) NEGATIVE CHLAMYDIA, AMPLIFIED, [id number] 00:00:00 Test Item Value Reference Range Interpretation Comments CHLAMYDIA, TMA (test code = 81452) NEGATIVE MOOSE NON-REFLEX TO [id number] 00:00:00 Test Item Value Reference Range Interpretation Comments ANTI-NUCLEAR ANTIBODIES (test code = POSITIVE 3506) MOOSE NON-REFLEX TO [id number] 00:00:00 Test Item Value Reference Range Interpretation Comments ANTI-NUCLEAR ANTIBODIES (test code = POSITIVE 3506) GC, AMPLIFIED, [id number] 00:00:00 Test Item Value Reference Range Interpretation Comments GONORRHEA, TMA (test code = 49256) NEGATIVE GC, AMPLIFIED, [id number] 00:00:00 Test Item Value Reference Range Interpretation Comments GONORRHEA, TMA (test code = 69331) NEGATIVE CHLAMYDIA, AMPLIFIED, [id number] 00:00:00 Test Item Value Reference Range Interpretation Comments CHLAMYDIA, TMA (test code = 18382) NEGATIVE CHLAMYDIA, AMPLIFIED, [id number] 00:00:00 Test Item Value Reference Range Interpretation Comments CHLAMYDIA, TMA (test code = 52358) NEGATIVE MOOSE NON-REFLEX TO [id number] 00:00:00 Test Item Value Reference Range Interpretation Comments ANTI-NUCLEAR ANTIBODIES (test code = POSITIVE 3506) MOOSE NON-REFLEX TO [id number] 00:00:00 Test Item Value Reference Range Interpretation Comments ANTI-NUCLEAR ANTIBODIES (test code = POSITIVE 3506)
[2023-03-03 07:47] LABS: Absolute Lymphocytes (CBC) 1.8 K/uL (0.7-4.9); Lymphocytes % 54.8 % (15.3-44.8); MCV 94.1 fL (80-100); MPV 8.1 fL (7.6-11.3); RBC Red Blood Cell Count 4.35 M/uL (4.33-5.43)
--- NOTE | 2023-03-03 07:58 | RAD REPORT ---
EXAM DESCRIPTION: [facility] Single View03/03/2023 7:50 am CLINICAL HISTORY: CHEST PAIN COMPARISON: CHEST SINGLE VIEW dated 11/13/2009; CHEST SINGLE VIEW dated 04/13/2009; CHEST SINGLE VIEW da malu 12/30/2008; CHEST SINGLE VIEW dated 10/07/2008 TECHNIQUE: Portable AP view of the chest. FINDINGS: The lungs are clear. No pneumothorax or effusion. The cardiomediastinal contours are unre markable. Left chest wall pacer in place. IMPRESSION: No acute cardiopulmonary process.
[2023-03-03 08:02] LABS: Potassium 3.7 mEq/L (3.5-5.1)
[2023-03-03] MEDS ORDERED: CEFTRIAXONE 1000 MG/VIAL ONE (08:55)
--- NOTE | 2023-03-03 10:19 | EDPHYS ---
Physician Documentation [facility] Name: Dennis Lugo Age: 52 yrs Sex: Male : 1970 Arrival Date: 03/03/2023 Time: 07:22 Bed 5 Private MD: ED Physician Jacobo Barksdale HPI: 03/03 07:32 This 52 yrs old Black Male presents to ER via EMS with complaints of Doesn't Feel Right.bs3 07:32 Patient with a history of mitral valve prolapse, CHF presents with an episode of not bs3 feeling well he was in his car and dozed off before work and felt when he woke up that he was sweaty and a little bit nauseous without chest pain or shortness of breath when EMS got there he seemed to improve and he is now feeling well, no sob. No headache, abd pain. . Historical: - Allergies: 07:28 No Known Allergies; ph - PMHx: 07:28 Congestive heart failure; Hypertensive disorder; mitral valve prolapse; defibrillator; ph - Immunization history:: Adult Immunizations unknown. - Social history:: Smoking status: Patient denies any tobacco usage or history of. ROS: 07:32 Constitutional: Negative for fever, chills bs3 Exam: 07:32 Constitutional: This is a well developed, well nourished patient who is awake, alert, bs3 and in no acute distress. Head/Face: Normocephalic, atraumatic. Eyes: Pupils equal round and reactive to light, extra-ocular motions intact. Lids and lashes normal. ENT: mmm, no posterior phyarngeal erythema Neck: Trachea midline, no thyromegaly, no neck stiffness Chest/axilla: Normal chest wall appearance and motion. Nontender with no deformity. No lesions are appreciated. Cardiovascular: Regular rate and rhythm with a normal S1 and S2. symmetric pulses in upper extremities Respiratory: Lungs have equal breath sounds bilaterally, clear to auscultation, no respiratory distress Skin: Warm, dry with normal turgor. Normal color with no rashes, no lesions, and no evidence of cellulitis. MS/ Extremity: Pulses equal, no cyanosis. Neurovascular intact. Full, normal range of motion. Neuro: Awake and alert, GCS 15, oriented to person, place, time, and situation. Cranial nerves II-XII grossly intact. Motor strength 5/5 in all extremities. Sensory grossly intact. 08:16 Normal sinus rhythm at [address] elevation or depression QTc 395 as interpreted by bs3 myself Vital Signs: 07:25 BP 104 / 75; Pulse 65; Resp 18; Temp 97.8; Pulse Ox 98% on R/A; Weight 74.84 kg; Height ph 5 ft. 11 in. ; Pain 0/10; 08:22 BP 101 / 72; Pulse 69; Resp 18; Pulse Ox 98% on R/A; ph 09:19 BP 109 / 73; Pulse 56; Resp 16; Pulse Ox 100% on R/A; ph 10:37 BP 103 / 76; Pulse 58; Resp 18; Temp 98; Pulse Ox 99% on R/A; ph 07:25 Body Mass Index 23.01 (74.84 kg, 180.34 cm) ph 07:25 Pain Scale: Adult ph MDM: 07:29 Patient medically screened. bs3 07:32 Differential Diagnosis possible acs, possible vfib/tach episode, less likely pe/dvt, bs3 doubt dissection given symptom free now, no signs of acute decompensated hf. . Data reviewed: vital signs, nurses notes. 08:16 ED course: AICD interrogated no issues, EKG normal initial labs normal will repeat bs3 troponin at 2 hours to rule out ACS. 10:17 ED course: Will discharge repeat troponin negative. 3 03/03 07:28 Order name: Basic Metabolic Panel; Complete Time: 08:15 [facility] 03/03 07:28 Order name: CBC with Diff; Complete Time: 08:15 [facility] 03/03 07:28 Order name: Troponin HS; Complete Time: 08:15 [facility] 03/03 09:37 Order name: Troponin High Sensitivity; Complete Time: 10:17 3 03/03 07:28 Order name: XRAY Chest (1 view); Complete Time: 08:15 [facility] 03/03 07:28 Order name: EKG; Complete Time: 07:29 [facility] 03/03 07:28 Order name: Cardiac monitoring; Complete Time: 07:32 3 03/03 07:28 Order name: EKG - Nurse/Tech; Complete Time: 07:51 [facility] 03/03 07:28 Order name: IV Saline Lock; Complete Time: 07:32 [facility] 03/03 07:28 Order name: Labs collected and sent; Complete Time: 07:34 bs3 03/03 07:28 Order name: O2 Per Protocol; Complete Time: 07:32 bs3 03/03 07:28 Order name: O2 Sat Monitoring; Complete Time: 07:32 bs3 Administered Medications: No medications were administered Disposition Summary: 03/03/23 10:18 Discharge Ordered Location: Home bs3 Problem: new bs3 Symptoms: have improved bs3 Condition: Stable bs3 Diagnosis - Other malaise and fatigue bs3 Followup: bs3 - With: Private Physician - When: 2 - 3 days - Reason: Re-evaluation by your physician Discharge Instructions: - Discharge Summary Sheet bs3 - Weakness, [id number] bs3 Forms: - Work release form ph - Medication Reconciliation Form bs3 - Thank You Letter bs3 - Antibiotic Education bs3 - Prescription Opioid Use bs3 Signatures: Dispatcher [employer] Nathalia Barba RN RN ph Stein, Brandon, MD MD bs3
--- NOTE | 2023-03-03 10:19 | ER ---
Nurse's Notes [facility] Name: Dennis Lugo Age: 52 yrs Sex: Male : 1970 Arrival Date: 03/03/2023 Time: 07:22 Bed 5 Private MD: Diagnosis: Other malaise and fatigue Presentation: 03/03 07:25 Chief complaint: EMS states: Was at work napping in car before shift as he normally ph does, woke up "not feeling good." States that he felt hot and cold at the same time, was sweating and had chils, hx of defibrillator, CHF and mitral valve prolapse, denies chest pain or SOB, VSS. Coronavirus screen: Vaccine status: Patient reports receiving the 2nd dose of the covid vaccine. Ebola Screen: No symptoms or risks identified at this time. Initial Sepsis Screen: Does the patient meet any 2 criteria? No. Patient's initial sepsis screen is negative. Does the patient have a suspected source of infection? No. Patient's initial sepsis screen is negative. Risk Assessment: Do you want to hurt yourself or someone else? Patient reports no desire to harm self or others. Onset of symptoms was March 03, 2023. 07:25 Method Of Arrival: EMS: [facility] 07:25 Acuity: GHULAM 3 ph Triage Assessment: 07:30 General: Appears in no apparent distress. comfortable, slender, well groomed, Behavior ph is calm, cooperative, appropriate for age. Pain: Denies pain. Neuro: Level of Consciousness is awake, alert, obeys commands, Oriented to person, place, time, situation. Cardiovascular: Reports diaphoresis, fatigue, lightheadedness, Denies chest pain, Capillary refill < 3 seconds in bilateral fingers Patient's skin is warm and dry. Respiratory: Airway is patent Respiratory effort is even, unlabored, Respiratory pattern is regular, symmetrical. GI: No signs and/or symptoms were reported involving the gastrointestinal system. Derm: Skin is pink, warm \\T\\ dry. Musculoskeletal: Circulation, motion, and sensation intact. Range of motion: intact in all extremities. Historical: - Allergies: 07:28 No Known Allergies; ph - PMHx: 07:28 Congestive heart failure; Hypertensive disorder; mitral valve prolapse; defibrillator; ph - Immunization history:: Adult Immunizations unknown. - Social history:: Smoking status: Patient denies any tobacco usage or history of. Screenin:31 [facility] ED Fall Risk Assessment (Adult) History of falling in the last 3 months, ph including since admission No falls in past 3 months (0 pts) Confusion or Disorientation No (0 pts) Intoxicated or Sedated No (0 pts) Impaired Gait No (0 pts) Mobility Assist Device Used No (0 pt) Altered Elimination No (0 pt) Score/Fall Risk Level 0 - 2 = Low Risk Oriented to surroundings, Maintained a safe environment, Hourly rounding (assess needs \\T\\ fall precautionary measures) done. Abuse screen: Denies threats or abuse. Denies injuries from another. Nutritional screening: No deficits noted. Tuberculosis screening: No symptoms or risk factors identified. Assessment: 07:32 General: SEE TRIAGE ASSESSMENT. ph 10:37 Reassessment: Patient appears in no apparent distress at this time. Patient and/or ph family updated on plan of care and expected duration. Pain level reassessed. Patient is alert, oriented x 3, equal unlabored respirations, skin warm/dry/pink. Vital Signs: 07:25 BP 104 / 75; Pulse 65; Resp 18; Temp 97.8; Pulse Ox 98% on R/A; Weight 74.84 kg; Height ph 5 ft. 11 in. ; Pain 0/10; 08:22 BP 101 / 72; Pulse 69; Resp 18; Pulse Ox 98% on R/A; ph 09:19 BP 109 / 73; Pulse 56; Resp 16; Pulse Ox 100% on R/A; ph 10:37 BP 103 / 76; Pulse 58; Resp 18; Temp 98; Pulse Ox 99% on R/A; ph 07:25 Body Mass Index 23.01 (74.84 kg, 180.34 cm) ph 07:25 Pain Scale: Adult ph Vitals: 09:19 Cardiac Rhythm Assessment Sinus michael. ph ED Course: 07:25 Patient arrived in ED. ph 07:28 Jacobo Barksdale MD is Attending Physician. bs3 07:28 Triage completed. ph 07:31 Arm band placed on Patient placed in an exam room, on a stretcher, on environmental monitoring specialist, ph on pulse oximetry. 07:31 Patient has correct armband on for positive identification. Placed in gown. Bed in low ph position. Call light in reach. Client placed on continuous cardiac and pulse oximetry monitoring. NIBP monitoring applied. 07:32 Nathalia Kunz, RN is Primary Nurse. ph 07:39 Basic Metabolic Panel Sent. zm 07:39 CBC with Diff Sent. zm 07:39 Troponin HS Sent. zm 07:39 Maintain EMS IV. Dressing intact. Good blood return noted. Site clean \\T\\ dry. Gauge \\T\\ zm site: 20g LAC. 07:52 XRAY Chest (1 view) In Process Unspecified. EDMS 10:37 No provider procedures requiring assistance completed. IV discontinued, intact, ph bleeding controlled, No redness/swelling at site. Pressure dressing applied. Administered Medications: No medications were administered Medication: 07:31 VIS not applicable for this client. ph Outcome: 10:18 Discharge ordered by . bs3 10:37 Discharged to home ambulatory. ph 10:37 Condition: good 10:37 Discharge instructions given to patient, Instructed on discharge instructions, follow up and referral plans. Demonstrated understanding of instructions, follow-up care. 10:38 Patient left the ED. ph Signatures: Dispatcher [employer] EDNathalia Skelton, TRES RN jerome Mcclain, Jacobo Sousa MD MD bs3
[2023-03-03 10:59] VITALS: BP 103/76; TEMP 98; O2SAT 99
--- NOTE | 2023-03-04 20:41 | EKG ---
Test Date: 2023-03-03 Test Time: 07:48:29 Sandblaster Supervisor: EMY MEASUREMENT RESULTS: Intervals: Rate: 62 PA: 188 QRSD: 94 QT: 390 QTc: 395 [place]: P: 60 PA: 188 QRS: 81 T: 63 INTERPRETIVE STATEMENTS: Sinus rhythm with occasional premature ventricular complexes Anterior infarct, age undetermined Abnormal ECG Compared to ECG 11/13/2009 15:35:06 Ventricular premature complex(es) now present Myocardial infarct finding now present Sinus tachycardia no longer present Right-axis deviation no longer present Electronically Signed On 03-04-23 20:33:25 CDT by Gagan Kay
== END 2023-03-03 10:38 | disposition home or self-care (01) ==
LOC: ER 07:22
DX: R53.81 Other malaise (principal); R53.83 Other fatigue; I10 Essential (primary) hypertension; I50.9 Heart failure, unspecified; Z95.810 Presence of automatic (implantable) cardiac defibrillator
CPT/HCPCS: 85025; 80048; 36415; 84484 ×2; 71045; J0696; 93005

== ENCOUNTER → 2023-09-29 | Emergency (ER) | payer OTHER ==
--- OUTSIDE RECORDS SUMMARY | 2023-09-29 10:22 | XMS REPORT | Continuity of Care Document ---
Author Name Unknown Address [address] [facility] [address] [place] [address] [facility] thconnect Address [address] [facility] [address] [place] [address] Care Team Providers Care Environmental Sustainability Manager Name Role Phone Teddy Irvin Primary Care Physician Carleen Lemus DO Attending Clinician [phone] CARLEEN LEMUS Attending Clinician Unavailab le Doctor Unassigned, [place] Attending Clinician U navailable Raulito DENNISON Attending Clinician Unavailable Raulito Cota Attending Clinician [phone] SARAH CHAVIS Attending Clinician Unavailable Sarah Chavis MD Attending Clinician [phone] CHET GAONA Attending Clinician Unavailable Raulito DENNISON Admitting Clinician Unavailable CHET GAONA Admitting Clinician Unavailable Payers Payer Name Policy Type Policy Number Effective Date Expirati on Date Source MEDICAID SSI PENDING PENDING 2021 00:00:00 Problems Condition Name Condition Details Condition Category Status Onset Date Resolution Date Last Treatment Date Treating Clinician Comments Source No known active problems No known active problems Disease [facility] Allergies, Adverse Reactions, Alerts Allergy Name Allergy Type Status Severity Reaction(s) Onset Date Inactive Date Treating Clinician Comments Source Morphine and Related - CLASS Propensi ty to adverse reaction to drug Active 9-12 00:00: 00 Morphine Propensi ty to adverse reaction to drug Active 4-12 00:00: 00 MORPHINE DRUG INGREDI Active HYPERTENSION 2017-09 0- 00:00: 00 [facility] Morphine Propensi ty to adverse reaction s Active Hypertension 2017-09 0- 00:00: 00 [facility] Social History Social Habit Start Date Stop Date Quantity Comments Source Exposure to SARS-CoV-2 (event) 2022-09-13 00:00:00 2022-09-23 16:06:00 Not sure [facility] Sex Assigned At 1970 00:00:00 1970 00:00:00 [facility] Smoking Status Start Date Stop Date Source Tobacco smoking consumption unknown [facility] Medications Ordered Medication Name Filled Medication Name Start Date Stop Date Current Medication? Ordering Clinician Indication Dosage Frequency Signature (SIG) Comments Components Source Dose Unknown 2021-09 2- 00:00: 00 No Dose Unknown 2021-09 00:00: 00 No methylpredn isolone sod succ (SOLU-MEDRO L) injection 125 mg -04 02:15: 00 01-09 01:20 :00 No 125mg 125 mg, Intramuscu lar, ONCE, 1 dose, On Fri01/08/22 at 2115, HERM[facility] Dose Unknown 4-16 00:00: 00 No carvedilol 25 mg tablet 4-16 00:00: 00 No 1mg Dose Unknown 4-16 00:00: 00 No Dose Unknown 4-16 00:00: 00 No Entresto 24 mg-26 mg tablet 4-16 00:00: 00 No 1mg carvedilol 25 mg tablet 4-16 00:00: 00 No 1mg Dose Unknown 3-15 00:00: 00 No Dose Unknown 2022-0 3-15 00:00: 00 No Dose Unknown 2021-0 3-15 00:00: 00 No Dose Unknown 2021-0 3-15 00:00: 00 No Dose Unknown 2021-0 3-15 00:00: 00 No Dose Unknown 2021-0 3-15 00:00: 00 No Dose Unknown 2021-0 3-15 00:00: 00 No Dose Unknown 0 3-15 00:00: 00 No Dose Unknown 0 3-15 00:00: 00 No amoxicillin 500 mg capsule 2020-09 2-24 00:00: 00 Yes [id number] 500mg Take 1 capsule by mouth 3 (three) times daily. [facility] 2020-09 224 00:00: 00 Yes [id number] 100mg Take 1 capsule by mouth 3 (three) times daily as needed for Cough. [facility] amoxicillin 500 mg capsule 2020-09 224 00:00: 00 Yes [id number] 500mg Take 1 capsule by mouth 3 (three) times daily. [facility] benzonatate 100 mg capsule 2020-0924 00:00: 00 Yes [id number] 100mg Take 1 capsule by mouth 3 (three) times daily as needed for Cough. [facility] amoxicillin 500 mg capsule 2020-09 224 00:00: 00 Yes [id number] 500mg Take 1 capsule by mouth 3 (three) times daily. [facility] benzonatate 100 mg capsule 2020-09 224 00:00: 00 Yes [id number] 100mg Take 1 capsule by mouth 3 (three) times daily as needed for Cough. [facility] amoxicillin 500 mg capsule 2020-09 224 00:00: 00 Yes [id number] 500mg Take 1 capsule by mouth 3 (three) times daily. [facility] benzonatate 100 mg capsule 2020-09 224 00:00: 00 Yes [id number] 100mg Take 1 capsule by mouth 3 (three) times daily as needed for Cough. [facility] carvedilol 25 mg tablet 0 9-15 00:00: 00 No 1mg Dose Unknown 0 9-15 00:00: 00 No Dose Unknown 0 9-15 00:00: 00 No Dose Unknown 0 9-15 00:00: 00 No carvedilol 25 mg tablet 0 9-15 00:00: 00 No 1mg Entresto 24 mg-26 mg tablet 0 9-15 00:00: 00 No 1mg Dose Unknown 0 7-14 00:00: 00 No cyclobenzap rine 10 mg tablet 0 7-14 00:00: 00 No 1mg Dose Unknown 0 7-14 00:00: 00 No Dose Unknown 0 7-14 00:00: 00 No prednisone 20 mg tablet 0 7-14 00:00: 00 No 1mg cyclobenzap rine 10 mg tablet 0 7-14 00:00: 00 No 1mg carvedilol 25 mg tablet 0 3-18 00:00: 00 No 1mg carvedilol 25 mg tablet 0 3-18 00:00: 00 No 1mg carvedilol 25 mg tablet 0 3-18 00:00: 00 No 1mg carvedilol 25 mg tablet 0 2-04 00:00: 00 No 1mg carvedilol 25 mg tablet 0 2-04 00:00: 00 No 1mg carvedilol 25 mg tablet 0 2-04 00:00: 00 No 1mg lisinopril 20 mg tablet 2019-09 2- 00:00: 00 No 1mg carvedilol 25 mg tablet 2019-09 2- 00:00: 00 No 1mg omeprazole 40 mg capsule,del ayed release 2019-09 2 00:00: 00 No 1mg lisinopril 20 mg tablet 2019-09 2- 00:00: 00 No 1mg lisinopril 20 mg tablet 2019-09 00:00: 00 No 1mg carvedilol 25 mg tablet 2019-09 2 00:00: 00 No 1mg Dose Unknown 2019-09 00:00: 00 No carvedilol 25 mg tablet 2019-09 2 00:00: 00 No 1mg omeprazole 40 mg capsule,del ayed release 2019-09 2 00:00: 00 No 1mg lisinopril 20 mg tablet 2019-09 00:00: 00 No 1mg carvedilol 25 mg tablet 2019-09 00:00: 00 No 1mg omeprazole 40 mg capsule,del ayed release 2019-09 00:00: 00 No 1mg lisinopril 20 mg tablet 2019-09 00:00: 00 No 1mg carvedilol 25 mg tablet 2019-09 00:00: 00 No 1mg omeprazole 40 mg capsule,del ayed release 2019-09 00:00: 00 No 1mg lisinopril 20 mg tablet 2019-09 00:00: 00 No 1mg carvedilol 25 mg tablet 2019-09 00:00: 00 No 1mg omeprazole 40 mg capsule, ayed release 2019-09 00:00: 00 No 1mg omeprazole 40 mg capsule, ayed release 2019-09 00:00: 00 No 1mg omeprazole 40 mg capsule,del ayed release 2019-09 00:00: 00 No 1mg omeprazole 40 mg capsule,del ayed release 2019-09 0 00:00: 00 No 1mg lisinopril 20 mg tablet 0 03-15 00:00: 00 No 1mg carvedilol 25 mg tablet 0 03-15 00:00: 00 No 1mg lisinopril 20 mg tablet 0 7- 00:00: 00 No 1mg carvedilol 25 mg tablet 0 7- 00:00: 00 No 1mg lisinopril 20 mg tablet 0 03-15 00:00: 00 No 1mg carvedilol 25 mg tablet 0 - 00:00: 00 No 1mg lisinopril 20 mg tablet 0 02-01 00:00: 00 No 1mg carvedilol 25 mg tablet 0 5 00:00: 00 No 1mg lisinopril 20 mg tablet 0 5 00:00: 00 No 1mg carvedilol 25 mg tablet 0 5 00:00: 00 No 1mg lisinopril 20 mg tablet 02-01 00:00: 00 No 1mg carvedilol 25 mg tablet 02-01 00:00: 00 No 1mg carvedilol 25 mg tablet 11-29 00:00: 00 No 1mg lisinopril 20 mg tablet 11-29 00:00: 00 No 1mg carvedilol 25 mg tablet 11-29 00:00: 00 No 1mg lisinopril 20 mg tablet 11-29 00:00: 00 No 1mg carvedilol 25 mg tablet 11-29 00:00: 00 No 1mg lisinopril 20 mg tablet 11-29 00:00: 00 No 1mg carvedilol 25 mg tablet 2018-09 00:00: 00 Yes [id number] 25mg Take 1 tablet by mouth 2 (two) times daily with meals. [facility] lisinopril 30 mg tablet 2018-09 00:00: 00 Yes [id number] 30mg Take 1 tablet by mouth daily. [facility] carvedilol 25 mg tablet 2018-09 00:00: 00 Yes [id number] 25mg Take 1 tablet by mouth 2 (two) times daily with meals. [facility] lisinopril 30 mg tablet 2018-09 00:00: 00 Yes [id number] 30mg Take 1 tablet by mouth daily. [facility] carvedilol 25 mg tablet 2018-09 00:00: 00 Yes [id number] 25mg Take 1 tablet by mouth 2 (two) times daily with meals. [facility] lisinopril 30 mg tablet 2018-09 00:00: 00 Yes [id number] 30mg Take 1 tablet by mouth daily. [facility] carvedilol 25 mg tablet 2018-09 00:00: 00 Yes [id number] 25mg Take 1 tablet by mouth 2 (two) times daily with meals. [facility] lisinopril 30 mg tablet 2018-09 00:00: 00 Yes [id number] 30mg Take 1 tablet by mouth daily. [facility] hydrochloro thiazide 25 mg tablet 02-23 00:00: 00 No 1mg carvedilol 25 mg tablet 02-23 00:00: 00 No 1mg lisinopril 20 mg tablet 02-23 00:00: 00 No 1mg hydrochloro thiazide 25 mg tablet 02-23 00:00: 00 No 1mg carvedilol 25 mg tablet 02-23 00:00: 00 No 1mg lisinopril 20 mg tablet 02-23 00:00: 00 No 1mg hydrochloro thiazide 25 mg tablet 02-23 00:00: 00 No 1mg carvedilol 25 mg tablet 02-23 00:00: 00 No 1mg lisinopril 20 mg tablet 02-23 00:00: 00 No 1mg hydrochloro thiazide 25 mg tablet 01-14 00:00: 00 No 1mg carvedilol 25 mg tablet 01-14 00:00: 00 No 1mg hydrochloro thiazide 25 mg tablet 01-14 00:00: 00 No 1mg carvedilol 25 mg tablet 01-14 00:00: 00 No 1mg lisinopril 20 mg tablet 0 01-14 00:00: 00 No 1mg lisinopril 20 mg tablet 01-14 00:00: 00 No 1mg hydrochloro thiazide 25 mg tablet 0 01-14 00:00: 00 No 1mg carvedilol 25 mg tablet 01-14 00:00: 00 No 1mg lisinopril 20 mg tablet 0 01-14 00:00: 00 No 1mg pantoprazol e 40 mg tablet,wm yed release 2017-09 00:00: 00 No 1mg metronidazo le 500 mg tablet 2017-09 00:00: 00 No 1mg pantoprazol e 40 mg tablet,wm yed release 2017-09 00:00: 00 No 1mg metronidazo le 500 mg tablet 2017-09 00:00: 00 No 1mg pantoprazol e 40 mg tablet,wm yed release 2017-09 00:00: 00 No 1mg metronidazo le 500 mg tablet 2017-09 00:00: 00 No 1mg hydrochloro thiazide 25 mg tablet 2017-09 00:00: 00 No 1mg carvedilol 25 mg tablet 2017-09 00:00: 00 No 1mg lisinopril 20 mg tablet 2017-09 00:00: 00 No 1mg cyclobenzap rine 10 mg tablet 2017-09 00:00: 00 No 1mg ciprofloxac in 500 mg tablet 2017-09 00:00: 00 No 1mg dicyclomine 20 mg tablet 2017-09 00:00: 00 No 1mg DOK 100 mg capsule 2017-09 00:00: 00 No 1mg hydrochloro thiazide 25 mg tablet 2017-09 00:00: 00 No 1mg carvedilol 25 mg tablet 2017-09 00:00: 00 No 1mg lisinopril 20 mg tablet 2017-09 00:00: 00 No 1mg cyclobenzap rine 10 mg tablet 2017-09 00:00: 00 No 1mg ciprofloxac in 500 mg tablet 2017-09 00:00: 00 No 1mg dicyclomine 20 mg tablet 2017-09 00:00: 00 No 1mg DOK 100 mg capsule 2017-09 00:00: 00 No 1mg hydrochloro thiazide 25 mg tablet 2017-09 00:00: 00 No 1mg carvedilol 25 mg tablet 2017-09 00:00: 00 No 1mg lisinopril 20 mg tablet 2017-09 00:00: 00 No 1mg cyclobenzap rine 10 mg tablet 2017-09 00:00: 00 No 1mg ciprofloxac in 500 mg tablet 2017-09 00:00: 00 No 1mg dicyclomine 20 mg tablet 2017-09 00:00: 00 No 1mg Dose Unknown 2017-09 00:00: 00 No dicyclomine (BENTYL) 20 mg tablet 2017-09 00:00: 00 Yes 20mg Take 1 tablet by mouth 4 (four) times daily. [facility] dicyclomine (BENTYL) 20 mg tablet 2017-09 00:00: 00 Yes 20mg Take 1 tablet by mouth 4 (four) times daily. [facility] dicyclomine (BENTYL) 20 mg tablet 2017-09 00:00: 00 Yes 20mg Take 1 tablet by mouth 4 (four) times daily. [facility] dicyclomine (BENTYL) 20 mg tablet 2017-09 00:00: 00 Yes 20mg Take 1 tablet by mouth 4 (four) times daily. [facility] atorvastati n calcium (ATORVASTAT IN ORAL) 2017-09 11:11: 57 Yes Take by mouth. [facility] atorvastati n calcium (ATORVASTAT IN ORAL) 2017-09 11:11: 57 Yes Take by mouth. [facility] atorvastati n calcium (ATORVASTAT IN ORAL) 2017-09 11:11: 57 Yes Take by mouth. [facility] atorvastati n calcium (ATORVASTAT IN ORAL) 2017-09 11:11: 57 Yes Take by mouth. [facility] aspirin 81 mg chewable tablet 2017-09 11:08: 17 Yes 81mg Take 81 mg by mouth daily. [facility] aspirin 81 mg chewable tablet 2017-09 11:08: 17 Yes 81mg Take 81 mg by mouth daily. [facility] aspirin 81 mg chewable tablet 2017-09 11:08: 17 Yes 81mg Take 81 mg by mouth daily. [facility] aspirin 81 mg chewable tablet 2017-09 11:08: 17 Yes 81mg Take 81 mg by mouth daily. [facility] carvedilol (COREG) 25 mg tablet 2017-09 11:08: 05 Yes 25mg Take 25 mg by mouth 2 (two) times daily with meals. [facility] lisinopril 30 mg tablet 2017-09 11:08: 05 Yes 30mg Take 30 mg by mouth daily. [facility] HYDROCHLORO THIAZIDE ORAL 2017-09 11:08: 05 Yes 25mg Take 25 mg by mouth. [facility] SERTraline (ZOLOFT) 50 mg tablet 2017-09 11:08: 05 Yes 50mg Take 50 mg by mouth daily. [facility] risperiDONE (RISPERDAL M-TAB) 2 mg M-Tab 2017-09 11:08: 05 Yes 2mg Take 2 mg by mouth at bedtime. [facility] carvedilol (COREG) 25 mg tablet 2017-09 11:08: 05 Yes 25mg Take 25 mg by mouth 2 (two) times daily with meals. [facility] lisinopril 30 mg tablet 2017-09 11:08: 05 Yes 30mg Take 30 mg by mouth daily. [facility] HYDROCHLORO THIAZIDE ORAL 2017-09 11:08: 05 Yes 25mg Take 25 mg by mouth. [facility] SERTraline (ZOLOFT) 50 mg tablet 2017-09 11:08: 05 Yes 50mg Take 50 mg by mouth daily. [facility] risperiDONE (RISPERDAL M-TAB) 2 mg M-Tab 2017-09 11:08: 05 Yes 2mg Take 2 mg by mouth at bedtime. [facility] carvedilol (COREG) 25 mg tablet 2017-09 11:08: 05 Yes 25mg Take 25 mg by mouth 2 (two) times daily with meals. [facility] lisinopril 30 mg tablet 2017-09 11:08: 05 Yes 30mg Take 30 mg by mouth daily. [facility] HYDROCHLORO THIAZIDE ORAL 2017-09 11:08: 05 Yes 25mg Take 25 mg by mouth. [facility] SERTraline (ZOLOFT) 50 mg tablet 2017-09 11:08: 05 Yes 50mg Take 50 mg by mouth daily. [facility] risperiDONE (RISPERDAL M-TAB) 2 mg M-Tab 2017-09 11:08: 05 Yes 2mg Take 2 mg by mouth at bedtime. [facility] carvedilol (COREG) 25 mg tablet 2017-09 11:08: 05 Yes 25mg Take 25 mg by mouth 2 (two) times daily with meals. [facility] lisinopril 30 mg tablet 2017-09 11:08: 05 Yes 30mg Take 30 mg by mouth daily. [facility] HYDROCHLORO THIAZIDE ORAL 2017-09 11:08: 05 Yes 25mg Take 25 mg by mouth. [facility] SERTraline (ZOLOFT) 50 mg tablet 2017-09 11:08: 05 Yes 50mg Take 50 mg by mouth daily. [facility] risperiDONE (RISPERDAL M-TAB) 2 mg M-Tab 2017-09 11:08: 05 Yes 2mg Take 2 mg by mouth at bedtime. [facility] lisinopril 20 mg tablet 05-05 00:00: 00 No 1mg carvedilol 25 mg tablet 05-05 00:00: 00 No 1mg hydrochloro thiazide 25 mg tablet 05-05 00:00: 00 No 1mg hydrochloro thiazide 25 mg tablet 05-05 00:00: 00 No 1mg carvedilol 25 mg tablet 05-05 00:00: 00 No 1mg lisinopril 20 mg tablet 05-05 00:00: 00 No 1mg lisinopril 20 mg tablet 05-05 00:00: 00 No 1mg carvedilol 25 mg tablet 05-05 00:00: 00 No 1mg hydrochloro thiazide 25 mg tablet 05-05 00:00: 00 No 1mg hydrochloro thiazide 25 mg tablet 05-05 00:00: 00 No 1mg carvedilol 25 mg tablet 05-05 00:00: 00 No 1mg lisinopril 20 mg tablet 05-05 00:00: 00 No 1mg lisinopril 20 mg tablet 05-05 00:00: 00 No 1mg carvedilol 25 mg tablet 05-05 00:00: 00 No 1mg hydrochloro thiazide 25 mg tablet 05-05 00:00: 00 No 1mg hydrochloro thiazide 25 mg tablet 05-05 00:00: 00 No 1mg carvedilol 25 mg tablet 05-05 00:00: 00 No 1mg lisinopril 20 mg tablet 05-05 00:00: 00 No 1mg Vital Signs Vital Name Observation Time Observation Value Comments S ource Systolic blood pressure 2022-09-23 22:08:00 138 mm[Hg] [facility] Diastolic blood pressure 2022-09-23 22:08:00 78 mm[Hg] [facility] Heart rate 2022-09-23 22:08:00 78 /min [facility] Body temperature 2022-09-23 22:08:00 36.61 Saige [facility] Respiratory rate 2022-09-23 22:08:00 18 /min [facility] Body height 2022-09-23 22:08:00 177.8 cm [facility] Body weight 2022-09-23 22:08:00 75.751 kg [facility] BMI 2022-09-23 22:08:00 23.96 kg/m2 [facility] Oxygen saturation in Arterial blood by Pulse oximetry 2022-09-23 22:08:00 99 /min [facility] Systolic blood pressure 2022-01-09 00:01:00 110 mm[Hg] [facility] hospital Diastolic blood pressure 2022-01-09 00:01:00 77 mm[Hg] [facility] acute hospital Heart rate 2022-01-09 00:01:00 77 /min [facility] Respiratory rate 2022-01-09 00:01:00 14 /min [facility] Oxygen saturation in Arterial blood by Pulse oximetry 2022-01-09 00:01:00 98 /min [facility] Body temperature 2022-01-08 22:08:00 36.61 Saige [facility] Body height 2022-01-08 22:08:00 180.3 cm [facility] Body weight 2022-01-08 22:08:00 76.204 kg [facility] BMI 2022-01-08 22:08:00 23.43 kg/m2 [facility] Systolic blood pressure 2021-08-31 08:17:00 132 mm[Hg] [facility] acute hospital Diastolic blood pressure 2021-08-31 08:17:00 10 mm[Hg] [facility] acute hospital Heart rate 2021-08-31 08:17:00 100 /min [facility] Body temperature 2021-08-31 08:17:00 37 Saige [facility] Respiratory rate 2021-08-31 08:17:00 20 /min [facility] Body weight 2021-08-31 08:17:00 74.844 kg [facility] BMI 2021-08-31 08:17:00 23.01 kg/m2 [facility] Oxygen saturation in Arterial blood by Pulse oximetry 2021-08-31 08:17:00 99 /min [facility] BP Systolic 2022-08-21 15:29:00 101 mm[Hg] BP [...] Procedures Procedure Date / Time Performed Performing Clinicia n Source CONSENT/REFUSAL FOR DIAGNOSIS AND TREATMENT 2022-09-23 22:00:55 Doctor Unassigned, [place] [facility] REFERRAL- REQUEST/RESPONSE 2022-05-11 05:01:00 Doctor Unassigned, [place] [facility] EKG-12 LEAD 2022-01-09 01:08:24 Raulito Dennison [facility] XR CHEST 1 VW 2022-01-08 22:35:00 Raulito Dennison [facility] CONSENT/REFUSAL FOR DIAGNOSIS AND TREATMENT 2022-01-08 22:03:37 Doctor Unassigned, [place] [facility] RAPID STREP SCREEN FOR GROUP A 2021-08-31 08:41:00 Sarah Chavis [facility] COVID-19 (ID NOW RAPID TESTING) 2021-08-31 08:41:00 Sarah Chavis [facility] NOTICE OF PRIVACY PRACTICES 2021-08-31 07:59:25 Doctor Unassigned, [place] [facility] CONSENT/REFUSAL FOR DIAGNOSIS AND TREATMENT 2021-08-31 07:58:09 Doctor Unassigned, [place] [facility] Plan of Care Planned Activity Planned Date Details Comments Source Goal Plan of Care Note [code = 33313-6] Goal Plan of Care Note [code = 95434-7] Goal Plan of Care Note [code = 85829-8] Goal Plan of Care Note [code = 22314-2] Goal Plan of Care Note [code = 50899-9] Goal Plan of Care Note [code = 88176-2] Goal Plan of Care Note [code = 84093-9] Goal Plan of Care Note [code = 29292-6] Goal Plan of Care Note [code = 93589-4] Goal Plan of Care Note [code = 04711-9] Goal Plan of Care Note [code = 28220-6] Goal Plan of Care Note [code = 91563-2] Goal Plan of Care Note [code = 65979-5] Goal Plan of Care Note [code = 00134-7] Goal Plan of Care Note [code = 03802-1] Goal Plan of Care Note [code = 14325-0] Goal Plan of Care Note [code = 11092-7] Goal Plan of Care Note [code = 90998-0] Goal Plan of Care Note [code = 05983-2] Goal Plan of Care Note [code = 89864-3] Goal Plan of Care Note [code = 45815-6] Goal Plan of Care Note [code = 97307-0] Goal Plan of Care Note [code = 82344-5] Goal Plan of Care Note [code = 71464-4] Goal Plan of Care Note [code = 68158-1] Goal Plan of Care Note [code = 13482-8] Goal Plan of Care Note [code = 59033-9] Goal Plan of Care Note [code = 01528-3] Goal Plan of Care Note [code = 73874-4] Goal Plan of Care Note [code = 33798-3] Goal Plan of Care Note [code = 20722-1] Goal Plan of Care Note [code = 65724-2] Goal Plan of Care Note [code = 33625-7] Goal Plan of Care Note [code = 47097-4] Goal Plan of Care Note [code = 27387-8] Goal Plan of Care Note [code = 12000-2] Goal Plan of Care Note [code = 08545-5] Goal Plan of Care Note [code = 23189-6] Goal Plan of Care Note [code = 45292-2] Goal Plan of Care Note [code = 06323-3] Goal Plan of Care Note [code = 41609-3] Goal Plan of Care Note [code = 92212-8] Goal Plan of Care Note [code = 06223-5] Goal Plan of Care Note [code = 15553-4] Goal Plan of Care Note [code = 50285-6] Goal Plan of Care Note [code = 94557-5] Goal Plan of Care Note [code = 58431-3] Goal Plan of Care Note [code = 52787-2] Goal Plan of Care Note [code = 39070-1] Goal Plan of Care Note [code = 52151-9] Goal Plan of Care Note [code = 10370-9] Goal Plan of Care Note [code = 95464-7] Goal Plan of Care Note [code = 73234-6] Goal Plan of Care Note [code = 42206-3] Goal Plan of Care Note [code = 46875-5] Goal Plan of Care Note [code = 90156-1] Goal Plan of Care Note [code = 89324-8] Goal Plan of Care Note [code = 46362-5] Goal Plan of Care Note [code = 94136-7] Goal Plan of Care Note [code = 68605-3] Goal Plan of Care Note [code = 27923-4] Goal Plan of Care Note [code = 31011-8] Goal Plan of Care Note [code = 05974-4] Goal Plan of Care Note [code = 58109-0] Goal Plan of Care Note [code = 87269-1] Goal Plan of Care Note [code = 17112-6] Goal Plan of Care Note [code = 81594-1] Goal Plan of Care Note [code = 42492-7] Goal Plan of Care Note [code = 12496-3] Goal Plan of Care Note [code = 85228-2] Goal Plan of Care Note [code = 70169-5] Goal Plan of Care Note [code = 06316-5] Goal Plan of Care Note [code = 20504-8] Encounters Start Date/Time End Date/Time Encounter Type Admission Type Attending Clinicians Care Facility Care Department Encounter ID Source 2023-07-05 13:37:50 2023-07-05 13:37:[address] [facility] [id number] Augie Sherman 2023-04-24 16:35:43 2023-04-24 16:35:[address] [facility] [id number] Augie Sherman 2023-02-25 08:21:28 2023-02-25 08:21:[address] [facility] [id number] Augie Sherman 2022-11-09 09:56:52 2022-11-09 09:56:[address] [facility] [id number] Augie Sherman 2022-09-23 16:10:00 2022-09-23 16:37:00 Emergency Carleen Lemus [facility] 1.840.114 350.1.13.10 4.2.7.2.686 [id number] [facility] 2022-09-23 16:10:00 2022-09-23 16:37:00 Emergency X CARLEEN LEMUS [facility] ERT [id number] [facility] 2022-08-21 15:28:31 2022-08-21 15:28:31 Outpatient [facility] [id number] Augie Sherman 2022-08-21 00:00:00 2022-08-21 00:00:00 Outpatient Visit [id number] 2022-05-20 00:00:00 2022-05-20 00:00:00 Outpatient Visit [id number] 00:00:00 2022-05-11 00:00:00 Orders Only Doctor Unassigned, [place] [facility] 1..840.114 350.1.13.10 4.2.7.2.686 [id number] [facility] 2022-05-01 00:00:00 2022-05-01 00:00:00 Outpatient Visit [id number] 2022-01-08 17:13:00 2022-01-08 20:38:00 Emergency X Raulito DENNISON [facility] ERT [id number] [facility] 2022-01-08 17:13:00 2022-01-08 20:38:00 Emergency MertRaulito baker [facility] [id number] 350.1.13.10 4.2.7.2.686 [id number] [facility] 2021-08-31 02:19:00 2021-08-31 03:47:00 Emergency X SARAH CHAVIS [facility] ERT [id number] [facility] 2021-08-31 02:19:00 2021-08-31 03:47:00 Emergency Sarah Chavis [facility] [id number] 350.1.13.10 4.2.7.2.686 [id number] [facility] 2019-08-08 17:47:33 2019-08-08 21:25:00 Emergency X JAX GAONAN [facility] ERT [id number] [facility] Results Test Description Test Time Test Comments Results Result Co mments Source LIPID [id number] 03:08:28* Test Item Value Reference Range Interpretation Comme nts CHOLESTEROL (test code = 2210) 211 MG/DL <200 H TRIGLYCERIDES (test code = 2232) 88 MG/DL <150 HDL CHOLESTEROL (test code = 2220) 47 MG/DL >39 CALC LDL CHOL (test code = 2237) 145 MG/DL <100 H NOTE: CALCULATED LDL IS BASED ON BRUCE-ETIENNE METHOD WHICHINCLUDES ADJUSTABLE TRIGLYCERIDE:VLDL CHOLESTEROL RATIO.THIS FACTOR VARIES BY MEASURED TRIGLYCERIDE AND NON-HDLCHOLESTEROL CONCENTRATIONS WITH INCREASED CALCULATED LDL SEENIN HIGHER TRIGLYCERIDE OR LOWER NON-HDL SPECIMENS. FOR MOREINFORMATION, SEE CLIENT ANNOUNCEMENT AT [email or web address] /CalcLDL-C RISK RATIO LDL/HDL (test code = 2237) 3.09 RATIO <3.55 COMPREHENSIVE METABOLIC [id number] 03:08:28* Test Item Value Reference Range Interpretation Comme nts GLUCOSE (test code = 2216) 92 MG/DL 70-99 BUN (test code = 2207) 15 MG/DL 6-20 CREATININE (test code = 2213) 1.04 MG/DL 0.80-1.40 eGFR (2020 CKD-EPI) (test code = ) 87 ML/MIN/1.73 >60 CALC BUN/CREAT (test code = 2234) 14 RATIO 6-28 SODIUM (test code = 2230) 141 MEQ/L 133-146 POTASSIUM (test code = 2227) 4.1 MEQ/L 3.5-5.4 CHLORIDE (test code = 2214) 105 MEQ/L 95-107 CARBON DIOXIDE (test code = 2205) 25 MEQ/L 19-31 CALCIUM (test code = 2208) 9.2 MG/DL 8.5-10.5 PROTEIN, TOTAL (test code = 2228) 7.5 G/DL 6.1-8.3 ALBUMIN (test code = 2200) 4.4 G/DL 3.5-5.2 CALC GLOBULIN (test code = 2240) 3.1 G/DL 1.9-3.7 CALC A/G RATIO (test code = 2233) 1.4 RATIO 1.0-2.6 BILIRUBIN, TOTAL (test code = 2206) 0.7 MG/DL See_Comment [Automated me ssage] The system which generated this result transmitted reference range: <=1.2. The reference range was not used to interpret this result as normal/abnormal. ALKALINE PHOSPHATASE (test code = 2203) 55 U/L 40-121 AST (test code = 2218) 13 U/L 9-50 ALT (test code = 2219) 13 U/L 5-50 UNLESS OTHERWISE INDICATED, ALL TESTING PERFORMED AT [facility] [address] [place] [address] CHIEF OPERATOR: VELVET ARRIAGA M.D. CLIA NUMBER [id number] [facility] [place]. [id number] HEMOGLOBIN [id number] 09:04:16* Test Item Value Reference Range Interpretation Comme [facility] HEMOGLOBIN A1c (test code = 38289) 5.7 % 4.2-5.6 H COMPREHENSIVE METABOLIC [id number] 04:57:20* Test Item Value Reference Range Interpretation Comme nts GLUCOSE (test code = 2216) 92 MG/DL 70-99 BUN (test code = 2207) 14 MG/DL 6-20 CREATININE (test code = 2213) 1.04 MG/DL 0.80-1.40 eGFR (2020 CKD-EPI) (test code = 78257) 87 ML/MIN/1.73 >60 CALC BUN/CREAT (test code = 2234) 13 RATIO 6-28 SODIUM (test code = 2230) 142 MEQ/L 133-146 POTASSIUM (test code = 2227) 4.3 MEQ/L 3.5-5.4 CHLORIDE (test code = 2214) 105 MEQ/L 95-107 CARBON DIOXIDE (test code = 2205) 24 MEQ/L 19-31 CALCIUM (test code = 2208) 9.4 MG/DL 8.5-10.5 PROTEIN, TOTAL (test code = 2228) 7.3 G/DL 6.1-8.3 ALBUMIN (test code = 2200) 4.3 G/DL 3.5-5.2 CALC GLOBULIN (test code = 2240) 3.0 G/DL 1.9-3.7 CALC A/G RATIO (test code = 223) 1.4 RATIO 1.0-2.6 BILIRUBIN, TOTAL (test code = 2206) 0.7 MG/DL See_Comment [Automated me ssage] The system which generated this result transmitted reference range: <=1.2. The reference range was not used to interpret this result as normal/abnormal. ALKALINE PHOSPHATASE (test code = 2203) 55 U/L 40-118 AST (test code = 8) 13 U/L 9-50 ALT (test code = 9) 13 U/L 5-50 LIPID [id number] 04:57:20* Test Item Value Reference Range Interpretation Comme nts CHOLESTEROL (test code = 2209) 205 MG/DL <200 H TRIGLYCERIDES (test code = 2231) 114 MG/DL <150 HDL CHOLESTEROL (test code = 2220) 45 MG/DL >39 CALC LDL CHOL (test code = 2237) 137 MG/DL <100 H NOTE: CALCULATED LDL IS BASED ON BRUCE-ETIENNE METHOD WHICHINCLUDES ADJUSTABLE TRIGLYCERIDE:VLDL CHOLESTEROL RATIO.THIS FACTOR VARIES BY MEASURED TRIGLYCERIDE AND NON-HDLCHOLESTEROL CONCENTRATIONS WITH INCREASED CALCULATED LDL SEENIN HIGHER TRIGLYCERIDE OR LOWER NON-HDL SPECIMENS. FOR MOREINFORMATION, SEE CLIENT ANNOUNCEMENT AT [email or web address] /CalcLDL-C RISK RATIO LDL/HDL (test code = 2238) 3.04 RATIO <3.55 UNLESS OTHERW ISE INDICATED, [facility] [address] [place] [address] CHIEF OPERATOR: OPAL LEIGH M.D. IA NUMBER [id number] [facility] [place]. [id number] HEMOGLOBIN [id number] 00:00:00* Test Item Value Reference Range Interpretation Comme nts HEMOGLOBIN A1c (test code = 59010) 5.7 % HEMOGLOBIN [id number] 00:00:00* Test Item Value Reference Range Interpretation Comme nts HEMOGLOBIN A1c (test code = 35433) 5.7 % HEMOGLOBIN [id number] 00:00:00* Test Item Value Reference Range Interpretation Comme nts HEMOGLOBIN A1c (test code = 63485) 5.7 % COMPREHENSIVE METABOLIC [id number] 00:00:00* Test Item Value Reference Range Interpretation Comme nts GLUCOSE (test code = 2217) 92 MG/DL BUN (test code = 2208) 14 MG/DL CREATININE (test code = 2214) 1.04 MG/DL eGFR (2020 CKD-EPI) (test co de = 16080) 87 ML/MIN/1.73 CALC BUN/CREAT (test code = 2235) 13 RATIO SODIUM (test code = 2231) 142 MEQ/L POTASSIUM (test code = 2228) 4.3 MEQ/L CHLORIDE (test code = 2215) 105 MEQ/L CARBON DIOXIDE (test code = 2206) 24 MEQ/L CALCIUM (test code = 2209) 9.4 MG/DL PROTEIN, TOTAL (test code = 2229) 7.3 G/DL ALBUMIN (test code = 2201) 4.3 G/DL CALC GLOBULIN (test code = 2240) 3.0 G/DL CALC A/G RATIO (test code = 2234) 1.4 RATIO BILIRUBIN, TOTAL (test code = 2207) 0.7 MG/DL ALKALINE PHOSPHATASE (test code = 2204) 55 U/L AST (test code = 2218) 13 U/L ALT (test code = 2219) 13 U/L COMPREHENSIVE METABOLIC [id number] 00:00:00* Test Item Value Reference Range Interpretation Comme nts GLUCOSE (test code = 2217) 92 MG/DL BUN (test code = 2208) 14 MG/DL CREATININE (test code = 2214) 1.04 MG/DL eGFR (2020 CKD-EPI) (test co de = 33181) 87 ML/MIN/1.73 CALC BUN/CREAT (test code = 2235) 13 RATIO SODIUM (test code = 2231) 142 MEQ/L POTASSIUM (test code = 2228) 4.3 MEQ/L CHLORIDE (test code = 2215) 105 MEQ/L CARBON DIOXIDE (test code = 2206) 24 MEQ/L CALCIUM (test code = 2209) 9.4 MG/DL PROTEIN, TOTAL (test code = 2229) 7.3 G/DL ALBUMIN (test code = 2201) 4.3 G/DL CALC GLOBULIN (test code = 2240) 3.0 G/DL CALC A/G RATIO (test code = 2234) 1.4 RATIO BILIRUBIN, TOTAL (test code = 2207) 0.7 MG/DL ALKALINE PHOSPHATASE (test code = 2204) 55 U/L AST (test code = 2218) 13 U/L ALT (test code = 2219) 13 U/L LIPID [id number] 00:00:00* Test Item Value Reference Range Interpretation Comme nts CHOLESTEROL (test code = 2210) 205 MG/DL TRIGLYCERIDES (test code = 2232) 114 MG/DL HDL CHOLESTEROL (test code = 2220) 45 MG/DL CALC LDL CHOL (test code = 2237) 137 MG/DL RISK RATIO LDL/HDL (test cod e = 2238) 3.04 RATIO LIPID [id number] 00:00:00* Test Item Value Reference Range Interpretation Comme nts CHOLESTEROL (test code = 2210) 205 MG/DL TRIGLYCERIDES (test code = 2232) 114 MG/DL HDL CHOLESTEROL (test code = 2220) 45 MG/DL CALC LDL CHOL (test code = 2237) 137 MG/DL RISK RATIO LDL/HDL (test cod e = 2238) 3.04 RATIO TSH, THIRD [id number] 02:00:15* Test Item Value Reference Range Interpretation Comme nts TSH, THIRD GENERATION (test code = 2821) 1.280 UIU/ML 0.400-4.100 PSA, [id number] 02:00:15* Test Item Value Reference Range Interpretation Comme nts PSA, TOTAL (test code = 2606) 0.79 NG/ML See_Comment NOTE: Methodolog y is Analisa Angeli Electrochemiluminescence Immunoassay traceable to WHO reference standard 96/760. [Automated message] The system which generated this result transmitted reference range: <=4.00. The reference range was not used to interpret this result as normal/abnormal. [id number] 00:00:00* Test Item Value Reference Range Interpretation Comme nts TSH, THIRD GENERATION (test code = 2821) 1.280 UIU/ML [id number] 00:00:00* Test Item Value Reference Range Interpretation Comme nts TSH, THIRD GENERATION (test code = 2821) 1.280 UIU/ML [id number] 00:00:00* Test Item Value Reference Range Interpretation Comme nts TSH, THIRD GENERATION (test code = 2821) 1.280 UIU/ML PSA, [id number] 00:00:00* Test Item Value Reference Range Interpretation Comme nts PSA, TOTAL (test code = 2606) 0.79 NG/ML PSA, [id number] 00:00:00* Test Item Value Reference Range Interpretation Comme nts PSA, TOTAL (test code = 2606) 0.79 NG/ML PSA, [id number] 00:00:00* Test Item Value Reference Range Interpretation Comme nts PSA, TOTAL (test code = 2606) 0.79 NG/ML [id number] 00:00:00* Test Item Value Reference Range Interpretation Comme nts TSH, THIRD GENERATION (test code = 2821) 1.280 UIU/ML [id number] 00:00:00* Test Item Value Reference Range Interpretation Comme nts TSH, THIRD GENERATION (test code = 2821) 1.280 UIU/ML [id number] 00:00:00* Test Item Value Reference Range Interpretation Comme nts TSH, THIRD GENERATION (test code = 2821) 1.280 UIU/ML PSA, [id number] 00:00:00* Test Item Value Reference Range Interpretation Comme nts PSA, TOTAL (test code = 2606) 0.79 NG/ML PSA, [id number] 00:00:00* Test Item Value Reference Range Interpretation Comme nts PSA, TOTAL (test code = 2606) 0.79 NG/ML PSA, [id number] 00:00:00* Test Item Value Reference Range Interpretation Comme nts PSA, TOTAL (test code = 2606) 0.79 NG/ML [id number] 00:00:00* Test Item Value Reference Range Interpretation Comme nts TSH, THIRD GENERATION (test code = 2821) 1.280 UIU/ML [id number] 00:00:00* Test Item Value Reference Range Interpretation Comme nts TSH, THIRD GENERATION (test code = 2821) 1.280 UIU/ML [id number] 00:00:00* Test Item Value Reference Range Interpretation Comme nts TSH, THIRD GENERATION (test code = 2821) 1.280 UIU/ML PSA, [id number] 00:00:00* Test Item Value Reference Range Interpretation Comme nts PSA, TOTAL (test code = 2606) 0.79 NG/ML PSA, [id number] 00:00:00* Test Item Value Reference Range Interpretation Comme nts PSA, TOTAL (test code = 2606) 0.79 NG/ML PSA, [id number] 00:00:00* Test Item Value Reference Range Interpretation Comme nts PSA, TOTAL (test code = 2606) 0.79 NG/ML COMPREHENSIVE METABOLIC [id number] 23:58:33* Test Item Value Reference Range Interpretation Comme nts GLUCOSE (test code = 2217) 76 MG/DL 70-99 BUN (test code = 2208) 9 MG/DL 6-20 CREATININE (test code = 2214) 1.05 MG/DL 0.80-1.40 eGFR (2020 CKD-EPI) (test code = 91653) 86 ML/MIN/1.73 >60 CALC BUN/CREAT (test code = 2234) 9 RATIO 6-28 SODIUM (test code = 2230) 142 MEQ/L 133-146 POTASSIUM (test code = 2227) 3.9 MEQ/L 3.5-5.4 CHLORIDE (test code = 2214) 105 MEQ/L 95-107 CARBON DIOXIDE (test code = 2205) 24 MEQ/L 19-31 CALCIUM (test code = 2208) 9.3 MG/DL 8.5-10.5 PROTEIN, TOTAL (test code = 2228) 7.2 G/DL 6.1-8.3 ALBUMIN (test code = 2200) 4.3 G/DL 3.5-5.2 CALC GLOBULIN (test code = 2239) 2.9 G/DL 1.9-3.7 CALC A/G RATIO (test code = 2233) 1.5 RATIO 1.0-2.6 BILIRUBIN, TOTAL (test code = 2206) 0.6 MG/DL See_Comment [Automated me ssage] The system which generated this result transmitted reference range: <=1.2. The reference range was not used to interpret this result as normal/abnormal. ALKALINE PHOSPHATASE (test code = 2203) 60 U/L 40-118 AST (test code = 2217) 14 U/L 9-50 ALT (test code = 2218) 12 U/L 5-50 LIPID [id number] 23:58:33* Test Item Value Reference Range Interpretation Comme nts CHOLESTEROL (test code = 2210) 187 MG/DL <200 TRIGLYCERIDES (test code = 2231) 76 MG/DL <150 HDL CHOLESTEROL (test code = 2219) 42 MG/DL >39 CALC LDL CHOL (test code = 2236) 128 MG/DL <100 H NOTE: CALCULATED LDL IS BASED ON BRUCE-ETIENNE METHOD WHICHINCLUDES ADJUSTABLE TRIGLYCERIDE:VLDL CHOLESTEROL RATIO.THIS FACTOR VARIES BY MEASURED TRIGLYCERIDE AND NON-HDLCHOLESTEROL CONCENTRATIONS WITH INCREASED CALCULATED LDL SEENIN HIGHER TRIGLYCERIDE OR LOWER NON-HDL SPECIMENS. FOR MOREINFORMATION, SEE CLIENT ANNOUNCEMENT AT [email or web address] RISK RATIO LDL/HDL (test code = 2237) 3.05 RATIO <3.55 CBC W/AUTO DIFF WITH [id number] 06:40:54* Test Item Value Reference Range Interpretation Comme nts WBC (test code = 1001) 3.2 K/UL 3.5-11.0 L RBC (test code = 1002) 4.43 M/UL 4.50-6.10 L HEMOGLOBIN (test code = 1003) 13.5 G/DL 13.5-17.0 HEMATOCRIT (test code = 1004) 41.4 % 40.0-51.0 MCV (test code = 1005) 93.5 fL 80.0-99.0 MCH (test code = 1006) 30.5 PG 25.0-33.0 MCHC (test code = 1007) 32.6 G/DL 31.0-36.0 RDW (test code = 1038) 12.8 % 11.5-15.0 NEUTROPHILS (test code = 1008) 21.9 % AUTOMATED DIFFERENTIAL CONFIRMED WITH MANUAL SLIDE REVIEW. LYMPHOCYTES (test code = 1010) 62.7 % MONOCYTES (test code = 1011) 10.2 % EOSINOPHILS (test code = 1012) 4.3 % BASOPHILS (test code = 1013) 0.6 % IMMATURE GRANULOCYTES (test code = 1036) 0.3 % NUCLEATED RBCS (test code = 1065) 0.0 /100 WBC'S See_Comment [Automated message] The system which generated this result transmitted reference range: 0.0. The reference range was not used to interpret this result as normal/abnormal. PLATELET COUNT (test code = 1015) 152 K/UL 130-400 ABSOLUTE NEUTROPHILS (test code = 1066) 0.71 K/UL 1.50-7.50 L ABSOLUTE LYMPHOCYTES (test code = 1067) 2.03 K/UL 1.00-4.00 ABSOLUTE MONOCYTES (test code = 1068) 0.33 K/UL 0.20-1.00 ABSOLUTE EOSINOPHILS (test code = 1040) 0.14 K/UL 0.00-0.50 ABSOLUTE BASOPHILS (test code = 1069) 0.02 K/UL 0.00-0.20 ABS IMMATURE GRANULOCYTES (test code = 1020) 0.01 K/UL 0.00-0.10 ABS NUCLEATED RBCS (test code = 33311) 0.00 K/UL 0.00-0.11 COMMENTS (test code = 1016) (NOTE) NO SPECIFIC RBC ABNORMALITIES IDENTIFIED PLATELETS APPEAR NORMAL HEMOGLOBIN [id number] 04:22:49* Test Item Value Reference Range Interpretation Comme nts HEMOGLOBIN A1c (test code = 07252) 5.7 % 4.2-5.6 H UNLESS OTHERWISE INDICATED, ALL TESTING [facility]FORMED [facility] [address] [place] [address] CHIEF OPERATOR: OPAL LEIGH M.D. CLIA NUMBER [id number] [facility] [place]. [id number] COMPREHENSIVE METABOLIC [id number] 00:00:00* Test Item Value Reference Range Interpretation Comme nts GLUCOSE (test code = 2217) 76 MG/DL BUN (test code = 2208) 9 MG/DL CREATININE (test code = 2214) 1.05 MG/DL eGFR (2020 CKD-EPI) (test co de = 70883) 86 ML/MIN/1.73 CALC BUN/CREAT (test code = 2235) 9 RATIO SODIUM (test code = 2231) 142 MEQ/L POTASSIUM (test code = 2228) 3.9 MEQ/L CHLORIDE (test code = 2215) 105 MEQ/L CARBON DIOXIDE (test code = 2206) 24 MEQ/L CALCIUM (test code = 2209) 9.3 MG/DL PROTEIN, TOTAL (test code = 2229) 7.2 G/DL ALBUMIN (test code = 2201) 4.3 G/DL CALC GLOBULIN (test code = 2240) 2.9 G/DL CALC A/G RATIO (test code = 2234) 1.5 RATIO BILIRUBIN, TOTAL (test code = 2207) 0.6 MG/DL ALKALINE PHOSPHATASE (test code = 2204) 60 U/L AST (test code = 2218) 14 U/L ALT (test code = 2219) 12 U/L COMPREHENSIVE METABOLIC [id number] 00:00:00* Test Item Value Reference Range Interpretation Comme nts GLUCOSE (test code = 2217) 76 MG/DL BUN (test code = 2208) 9 MG/DL CREATININE (test code = 2214) 1.05 MG/DL eGFR (2020 CKD-EPI) (test co de = 24841) 86 ML/MIN/1.73 CALC BUN/CREAT (test code = 2235) 9 RATIO SODIUM (test code = 2231) 142 MEQ/L POTASSIUM (test code = 2228) 3.9 MEQ/L CHLORIDE (test code = 2215) 105 MEQ/L CARBON DIOXIDE (test code = 2206) 24 MEQ/L CALCIUM (test code = 2209) 9.3 MG/DL PROTEIN, TOTAL (test code = 2229) 7.2 G/DL ALBUMIN (test code = 2201) 4.3 G/DL CALC GLOBULIN (test code = 2240) 2.9 G/DL CALC A/G RATIO (test code = 2234) 1.5 RATIO BILIRUBIN, TOTAL (test code = 2207) 0.6 MG/DL ALKALINE PHOSPHATASE (test code = 2204) 60 U/L AST (test code = 2218) 14 U/L ALT (test code = 2219) 12 U/L LIPID [id number] 00:00:00* Test Item Value Reference Range Interpretation Comme nts CHOLESTEROL (test code = 2210) 187 MG/DL TRIGLYCERIDES (test code = 2232) 76 MG/DL HDL CHOLESTEROL (test code = 2220) 42 MG/DL CALC LDL CHOL (test code = 2237) 128 MG/DL RISK RATIO LDL/HDL (test cod e = 2238) 3.05 RATIO LIPID [id number] 00:00:00* Test Item Value Reference Range Interpretation Comme nts CHOLESTEROL (test code = 2210) 187 MG/DL TRIGLYCERIDES (test code = 2232) 76 MG/DL HDL CHOLESTEROL (test code = 2220) 42 MG/DL CALC LDL CHOL (test code = 2237) 128 MG/DL RISK RATIO LDL/HDL (test cod e = 2238) 3.05 RATIO CBC W/AUTO [id number] 00:00:00* Test Item Value Reference Range Interpretation Comme nts WBC (test code = 1001) 3.2 K/UL [...] = 1013) 0.6 % IMMATURE GRANULOCYTES (test code = 1036) 0.3 % NUCLEATED RBCS (test code = 1065) 0.0 /100WBC'S PLATELET COUNT (test code = 1015) 152 K/UL ABSOLUTE NEUTROPHILS (test c ode = 1066) 0.71 K/UL ABSOLUTE LYMPHOCYTES (test c ode = 1067) 2.03 K/UL ABSOLUTE MONOCYTES (test cod e = 1068) 0.33 K/UL ABSOLUTE EOSINOPHILS (test c ode = 1040) 0.14 K/UL ABSOLUTE BASOPHILS (test cod e = 1069) 0.02 K/UL ABS IMMATURE GRANULOCYTES (t est code = 1020) 0.01 K/UL ABS NUCLEATED RBCS (test cod e = 74736) 0.00 K/UL COMMENTS (test code = 1016) (NOTE) CBC W/AUTO [id number] 00:00:00* Test Item Value Reference Range Interpretation Comme nts WBC (test code = 1001) 3.2 K/UL [...] = 1013) 0.6 % IMMATURE GRANULOCYTES (test code = 1036) 0.3 % NUCLEATED RBCS (test code = 1065) 0.0 /100WBC'S PLATELET COUNT (test code = 1015) 152 K/UL ABSOLUTE NEUTROPHILS (test c ode = 1066) 0.71 K/UL ABSOLUTE LYMPHOCYTES (test c ode = 1067) 2.03 K/UL ABSOLUTE MONOCYTES (test cod e = 1068) 0.33 K/UL ABSOLUTE EOSINOPHILS (test c ode = 1040) 0.14 K/UL ABSOLUTE BASOPHILS (test cod e = 1069) 0.02 K/UL ABS IMMATURE GRANULOCYTES (t est code = 1020) 0.01 K/UL ABS NUCLEATED RBCS (test cod e = 60388) 0.00 K/UL COMMENTS (test code = 1016) (NOTE) CBC W/AUTO [id number] 00:00:00* Test Item Value Reference Range Interpretation Comme nts WBC (test code = 1001) 3.2 K/UL [...] = 1013) 0.6 % IMMATURE GRANULOCYTES (test code = 1036) 0.3 % NUCLEATED RBCS (test code = 1065) 0.0 /100WBC'S PLATELET COUNT (test code = 1015) 152 K/UL ABSOLUTE NEUTROPHILS (test c ode = 1066) 0.71 K/UL ABSOLUTE LYMPHOCYTES (test c ode = 1067) 2.03 K/UL ABSOLUTE MONOCYTES (test cod e = 1068) 0.33 K/UL ABSOLUTE EOSINOPHILS (test c ode = 1040) 0.14 K/UL ABSOLUTE BASOPHILS (test cod e = 1069) 0.02 K/UL ABS IMMATURE GRANULOCYTES (t est code = 1020) 0.01 K/UL ABS NUCLEATED RBCS (test cod e = 21013) 0.00 K/UL COMMENTS (test code = 1016) (NOTE) HEMOGLOBIN [id number] 00:00:00* Test Item Value Reference Range Interpretation Comme nts HEMOGLOBIN A1c (test code = 03506) 5.7 % HEMOGLOBIN [id number] 00:00:00* Test Item Value Reference Range Interpretation Comme nts HEMOGLOBIN A1c (test code = 00480) 5.7 % HEMOGLOBIN [id number] 00:00:00* Test Item Value Reference Range Interpretation Comme nts HEMOGLOBIN A1c (test code = 82210) 5.7 % COMPREHENSIVE METABOLIC [id number] 00:00:00* Test Item Value Reference Range Interpretation Comme nts GLUCOSE (test code = 2217) 76 MG/DL BUN (test code = 2208) 9 MG/DL CREATININE (test code = 2214) 1.05 MG/DL eGFR (2020 CKD-EPI) (test co de = 93071) 86 ML/MIN/1.73 CALC BUN/CREAT (test code = 2235) 9 RATIO SODIUM (test code = 2231) 142 MEQ/L POTASSIUM (test code = 2228) 3.9 MEQ/L CHLORIDE (test code = 2215) 105 MEQ/L CARBON DIOXIDE (test code = 2206) 24 MEQ/L CALCIUM (test code = 2209) 9.3 MG/DL PROTEIN, TOTAL (test code = 2229) 7.2 G/DL ALBUMIN (test code = 2201) 4.3 G/DL CALC GLOBULIN (test code = 2240) 2.9 G/DL CALC A/G RATIO (test code = 2234) 1.5 RATIO BILIRUBIN, TOTAL (test code = 2207) 0.6 MG/DL ALKALINE PHOSPHATASE (test code = 2204) 60 U/L AST (test code = 2218) 14 U/L ALT (test code = 2219) 12 U/L COMPREHENSIVE METABOLIC [id number] 00:00:00* Test Item Value Reference Range Interpretation Comme nts GLUCOSE (test code = 2217) 76 MG/DL BUN (test code = 2208) 9 MG/DL CREATININE (test code = 2214) 1.05 MG/DL eGFR (2020 CKD-EPI) (test co de = 56906) 86 ML/MIN/1.73 CALC BUN/CREAT (test code = 2235) 9 RATIO SODIUM (test code = 2231) 142 MEQ/L POTASSIUM (test code = 2228) 3.9 MEQ/L CHLORIDE (test code = 2215) 105 MEQ/L CARBON DIOXIDE (test code = 2206) 24 MEQ/L CALCIUM (test code = 2209) 9.3 MG/DL PROTEIN, TOTAL (test code = 2229) 7.2 G/DL ALBUMIN (test code = 2201) 4.3 G/DL CALC GLOBULIN (test code = 2240) 2.9 G/DL CALC A/G RATIO (test code = 2234) 1.5 RATIO BILIRUBIN, TOTAL (test code = 2207) 0.6 MG/DL ALKALINE PHOSPHATASE (test code = 2204) 60 U/L AST (test code = 2218) 14 U/L ALT (test code = 2219) 12 U/L LIPID [id number] 00:00:00* Test Item Value Reference Range Interpretation Comme nts CHOLESTEROL (test code = 2210) 187 MG/DL TRIGLYCERIDES (test code = 2232) 76 MG/DL HDL CHOLESTEROL (test code = 2220) 42 MG/DL CALC LDL CHOL (test code = 2237) 128 MG/DL RISK RATIO LDL/HDL (test cod e = 2238) 3.05 RATIO LIPID [id number] 00:00:00* Test Item Value Reference Range Interpretation Comme nts CHOLESTEROL (test code = 2210) 187 MG/DL TRIGLYCERIDES (test code = 2232) 76 MG/DL HDL CHOLESTEROL (test code = 2220) 42 MG/DL CALC LDL CHOL (test code = 2237) 128 MG/DL RISK RATIO LDL/HDL (test cod e = 2238) 3.05 RATIO CBC W/AUTO [id number] 00:00:00* Test Item Value Reference Range Interpretation Comme nts WBC (test code = 1001) 3.2 K/UL [...] = 1013) 0.6 % IMMATURE GRANULOCYTES (test code = 1036) 0.3 % NUCLEATED RBCS (test code = 1065) 0.0 /100WBC'S PLATELET COUNT (test code = 1015) 152 K/UL ABSOLUTE NEUTROPHILS (test c ode = 1066) 0.71 K/UL ABSOLUTE LYMPHOCYTES (test c ode = 1067) 2.03 K/UL ABSOLUTE MONOCYTES (test cod e = 1068) 0.33 K/UL ABSOLUTE EOSINOPHILS (test c ode = 1040) 0.14 K/UL ABSOLUTE BASOPHILS (test cod e = 1069) 0.02 K/UL ABS IMMATURE GRANULOCYTES (t est code = 1020) 0.01 K/UL ABS NUCLEATED RBCS (test cod e = 52379) 0.00 K/UL COMMENTS (test code = 1016) (NOTE) CBC W/AUTO [id number] 00:00:00* Test Item Value Reference Range Interpretation Comme nts WBC (test code = 1001) 3.2 K/UL [...] = 1013) 0.6 % IMMATURE GRANULOCYTES (test code = 1036) 0.3 % NUCLEATED RBCS (test code = 1065) 0.0 /100WBC'S PLATELET COUNT (test code = 1015) 152 K/UL ABSOLUTE NEUTROPHILS (test c ode = 1066) 0.71 K/UL ABSOLUTE LYMPHOCYTES (test c ode = 1067) 2.03 K/UL ABSOLUTE MONOCYTES (test cod e = 1068) 0.33 K/UL ABSOLUTE EOSINOPHILS (test c ode = 1040) 0.14 K/UL ABSOLUTE BASOPHILS (test cod e = 1069) 0.02 K/UL ABS IMMATURE GRANULOCYTES (t est code = 1020) 0.01 K/UL ABS NUCLEATED RBCS (test cod e = 05279) 0.00 K/UL COMMENTS (test code = 1016) (NOTE) CBC W/AUTO [id number] 00:00:00* Test Item Value Reference Range Interpretation Comme nts WBC (test code = 1001) 3.2 K/UL [...] = 1013) 0.6 % IMMATURE GRANULOCYTES (test code = 1036) 0.3 % NUCLEATED RBCS (test code = 1065) 0.0 /100WBC'S PLATELET COUNT (test code = 1015) 152 K/UL ABSOLUTE NEUTROPHILS (test c ode = 1066) 0.71 K/UL ABSOLUTE LYMPHOCYTES (test c ode = 1067) 2.03 K/UL ABSOLUTE MONOCYTES (test cod e = 1068) 0.33 K/UL ABSOLUTE EOSINOPHILS (test c ode = 1040) 0.14 K/UL ABSOLUTE BASOPHILS (test cod e = 1069) 0.02 K/UL ABS IMMATURE GRANULOCYTES (t est code = 1020) 0.01 K/UL ABS NUCLEATED RBCS (test cod e = 96967) 0.00 K/UL COMMENTS (test code = 1016) (NOTE) HEMOGLOBIN [id number] 00:00:00* Test Item Value Reference Range Interpretation Comme nts HEMOGLOBIN A1c (test code = 78619) 5.7 % HEMOGLOBIN [id number] 00:00:00* Test Item Value Reference Range Interpretation Comme nts HEMOGLOBIN A1c (test code = 81922) 5.7 % HEMOGLOBIN [id number] 00:00:00* Test Item Value Reference Range Interpretation Comme nts HEMOGLOBIN A1c (test code = 24650) 5.7 % COMPREHENSIVE METABOLIC [id number] 00:00:00* Test Item Value Reference Range Interpretation Comme nts GLUCOSE (test code = 2217) 76 MG/DL BUN (test code = 2208) 9 MG/DL CREATININE (test code = 2214) 1.05 MG/DL eGFR (2020 CKD-EPI) (test co de = 05026) 86 ML/MIN/1.73 CALC BUN/CREAT (test code = 2235) 9 RATIO SODIUM (test code = 2231) 142 MEQ/L POTASSIUM (test code = 2228) 3.9 MEQ/L CHLORIDE (test code = 2215) 105 MEQ/L CARBON DIOXIDE (test code = 2206) 24 MEQ/L CALCIUM (test code = 2209) 9.3 MG/DL PROTEIN, TOTAL (test code = 2229) 7.2 G/DL ALBUMIN (test code = 2201) 4.3 G/DL CALC GLOBULIN (test code = 2240) 2.9 G/DL CALC A/G RATIO (test code = 2234) 1.5 RATIO BILIRUBIN, TOTAL (test code = 2207) 0.6 MG/DL ALKALINE PHOSPHATASE (test code = 2204) 60 U/L AST (test code = 2218) 14 U/L ALT (test code = 2219) 12 U/L COMPREHENSIVE METABOLIC [id number] 00:00:00* Test Item Value Reference Range Interpretation Comme nts GLUCOSE (test code = 2217) 76 MG/DL BUN (test code = 2208) 9 MG/DL CREATININE (test code = 2214) 1.05 MG/DL eGFR (2020 CKD-EPI) (test co de = 50070) 86 ML/MIN/1.73 CALC BUN/CREAT (test code = 2235) 9 RATIO SODIUM (test code = 2231) 142 MEQ/L POTASSIUM (test code = 2228) 3.9 MEQ/L CHLORIDE (test code = 2215) 105 MEQ/L CARBON DIOXIDE (test code = 2206) 24 MEQ/L CALCIUM (test code = 2209) 9.3 MG/DL PROTEIN, TOTAL (test code = 2229) 7.2 G/DL ALBUMIN (test code = 2201) 4.3 G/DL CALC GLOBULIN (test code = 2240) 2.9 G/DL CALC A/G RATIO (test code = 2234) 1.5 RATIO BILIRUBIN, TOTAL (test code = 2207) 0.6 MG/DL ALKALINE PHOSPHATASE (test code = 2204) 60 U/L AST (test code = 2218) 14 U/L ALT (test code = 2219) 12 U/L LIPID [id number] 00:00:00* Test Item Value Reference Range Interpretation Comme nts CHOLESTEROL (test code = 2210) 187 MG/DL TRIGLYCERIDES (test code = 2232) 76 MG/DL HDL CHOLESTEROL (test code = 2220) 42 MG/DL CALC LDL CHOL (test code = 2237) 128 MG/DL RISK RATIO LDL/HDL (test cod e = 2238) 3.05 RATIO LIPID [id number] 00:00:00* Test Item Value Reference Range Interpretation Comme nts CHOLESTEROL (test code = 2210) 187 MG/DL TRIGLYCERIDES (test code = 2232) 76 MG/DL HDL CHOLESTEROL (test code = 2220) 42 MG/DL CALC LDL CHOL (test code = 2237) 128 MG/DL RISK RATIO LDL/HDL (test cod e = 2238) 3.05 RATIO CBC W/AUTO [id number] 00:00:00* Test Item Value Reference Range Interpretation Comme nts WBC (test code = 1001) 3.2 K/UL [...] = 1013) 0.6 % IMMATURE GRANULOCYTES (test code = 1036) 0.3 % NUCLEATED RBCS (test code = 1065) 0.0 /100WBC'S PLATELET COUNT (test code = 1015) 152 K/UL ABSOLUTE NEUTROPHILS (test c ode = 1066) 0.71 K/UL ABSOLUTE LYMPHOCYTES (test c ode = 1067) 2.03 K/UL ABSOLUTE MONOCYTES (test cod e = 1068) 0.33 K/UL ABSOLUTE EOSINOPHILS (test c ode = 1040) 0.14 K/UL ABSOLUTE BASOPHILS (test cod e = 1069) 0.02 K/UL ABS IMMATURE GRANULOCYTES (t est code = 1020) 0.01 K/UL ABS NUCLEATED RBCS (test cod e = 28641) 0.00 K/UL COMMENTS (test code = 1016) (NOTE) CBC W/AUTO [id number] 00:00:00* Test Item Value Reference Range Interpretation Comme nts WBC (test code = 1001) 3.2 K/UL [...] = 1013) 0.6 % IMMATURE GRANULOCYTES (test code = 1036) 0.3 % NUCLEATED RBCS (test code = 1065) 0.0 /100WBC'S PLATELET COUNT (test code = 1015) 152 K/UL ABSOLUTE NEUTROPHILS (test c ode = 1066) 0.71 K/UL ABSOLUTE LYMPHOCYTES (test c ode = 1067) 2.03 K/UL ABSOLUTE MONOCYTES (test cod e = 1068) 0.33 K/UL ABSOLUTE EOSINOPHILS (test c ode = 1040) 0.14 K/UL ABSOLUTE BASOPHILS (test cod e = 1069) 0.02 K/UL ABS IMMATURE GRANULOCYTES (t est code = 1020) 0.01 K/UL ABS NUCLEATED RBCS (test cod e = 46584) 0.00 K/UL COMMENTS (test code = 1016) (NOTE) CBC W/AUTO [id number] 00:00:00* Test Item Value Reference Range Interpretation Comme nts WBC (test code = 1001) 3.2 K/UL [...] = 1013) 0.6 % IMMATURE GRANULOCYTES (test code = 1036) 0.3 % NUCLEATED RBCS (test code = 1065) 0.0 /100WBC'S PLATELET COUNT (test code = 1015) 152 K/UL ABSOLUTE NEUTROPHILS (test c ode = 1066) 0.71 K/UL ABSOLUTE LYMPHOCYTES (test c ode = 1067) 2.03 K/UL ABSOLUTE MONOCYTES (test cod e = 1068) 0.33 K/UL ABSOLUTE EOSINOPHILS (test c ode = 1040) 0.14 K/UL ABSOLUTE BASOPHILS (test cod e = 1069) 0.02 K/UL ABS IMMATURE GRANULOCYTES (t est code = 1020) 0.01 K/UL ABS NUCLEATED RBCS (test cod e = 30837) 0.00 K/UL COMMENTS (test code = 1016) (NOTE) HEMOGLOBIN [id number] 00:00:00* Test Item Value Reference Range Interpretation Comme nts HEMOGLOBIN A1c (test code = 34668) 5.7 % HEMOGLOBIN [id number] 00:00:00* Test Item Value Reference Range Interpretation Comme nts HEMOGLOBIN A1c (test code = 44500) 5.7 % HEMOGLOBIN [id number] 00:00:00* Test Item Value Reference Range Interpretation Comme nts HEMOGLOBIN A1c (test code = 96297) 5.7 % LIPID [id number] 00:00:00* Test Item Value Reference Range Interpretation Comme nts CHOLESTEROL (test code = 2210) 214 MG/DL TRIGLYCERIDES (test code = 2232) 144 MG/DL HDL CHOLESTEROL (test code = 2220) 48 MG/DL CALC LDL CHOL (test code = 2237) 139 MG/DL RISK RATIO LDL/HDL (test cod e = 2238) 2.90 RATIO LIPID [id number] 00:00:00* Test Item Value Reference Range Interpretation Comme nts CHOLESTEROL (test code = 2210) 214 MG/DL TRIGLYCERIDES (test code = 2232) 144 MG/DL HDL CHOLESTEROL (test code = 2220) 48 MG/DL CALC LDL CHOL (test code = 2237) 139 MG/DL RISK RATIO LDL/HDL (test cod e = 2238) 2.90 RATIO COMPREHENSIVE METABOLIC [id number] 00:00:00* Test Item Value Reference Range Interpretation Comme nts GLUCOSE (test code = 2217) 71 MG/DL BUN (test code = 2208) 11 MG/DL CREATININE (test code = 2214) 0.99 MG/DL eGFR AMER. (test cod e = 39420) 103 ML/MIN/1.73 eGFR NON- AMER. (test code = 43879) 89 ML/MIN/1.73 CALC BUN/CREAT (test code = 2235) 11 RATIO SODIUM (test code = 2231) 145 MEQ/L POTASSIUM (test code = 2228) 4.3 MEQ/L CHLORIDE (test code = 2215) 104 MEQ/L CARBON DIOXIDE (test code = 2206) 26 MEQ/L CALCIUM (test code = 2209) 9.7 MG/DL PROTEIN, TOTAL (test code = 2229) 7.2 G/DL ALBUMIN (test code = 2201) 4.4 G/DL CALC GLOBULIN (test code = 2240) 2.8 G/DL CALC A/G RATIO (test code = 2234) 1.6 RATIO BILIRUBIN, TOTAL (test code = 2207) 0.6 MG/DL ALKALINE PHOSPHATASE (test code = 2204) 61 U/L AST (test code = 2218) 17 U/L ALT (test code = 2219) 14 U/L COMPREHENSIVE METABOLIC [id number] 00:00:00* Test Item Value Reference Range Interpretation Comme nts GLUCOSE (test code = 2217) 71 MG/DL BUN (test code = 2208) 11 MG/DL CREATININE (test code = 2214) 0.99 MG/DL eGFR AMER. (test cod e = 94673) 103 ML/MIN/1.73 eGFR NON- AMER. (test code = 08808) 89 ML/MIN/1.73 CALC BUN/CREAT (test code = 2235) 11 RATIO SODIUM (test code = 2231) 145 MEQ/L POTASSIUM (test code = 2228) 4.3 MEQ/L CHLORIDE (test code = 2215) 104 MEQ/L CARBON DIOXIDE (test code = 2206) 26 MEQ/L CALCIUM (test code = 2209) 9.7 MG/DL PROTEIN, TOTAL (test code = 2229) 7.2 G/DL ALBUMIN (test code = 2201) 4.4 G/DL CALC GLOBULIN (test code = 2240) 2.8 G/DL CALC A/G RATIO (test code = 2234) 1.6 RATIO BILIRUBIN, TOTAL (test code = 2207) 0.6 MG/DL ALKALINE PHOSPHATASE (test code = 2204) 61 U/L AST (test code = 2218) 17 U/L ALT (test code = 2219) 14 U/L LIPID [id number] 00:00:00* Test Item Value Reference Range Interpretation Comme nts CHOLESTEROL (test code = 2210) 214 MG/DL TRIGLYCERIDES (test code = 2232) 144 MG/DL HDL CHOLESTEROL (test code = 2220) 48 MG/DL CALC LDL CHOL (test code = 2237) 139 MG/DL RISK RATIO LDL/HDL (test cod e = 2238) 2.90 RATIO LIPID [id number] 00:00:00* Test Item Value Reference Range Interpretation Comme nts CHOLESTEROL (test code = 2210) 214 MG/DL TRIGLYCERIDES (test code = 2232) 144 MG/DL HDL CHOLESTEROL (test code = 2220) 48 MG/DL CALC LDL CHOL (test code = 2237) 139 MG/DL RISK RATIO LDL/HDL (test cod e = 2238) 2.90 RATIO COMPREHENSIVE METABOLIC [id number] 00:00:00* Test Item Value Reference Range Interpretation Comme nts GLUCOSE (test code = 2217) 71 MG/DL BUN (test code = 2208) 11 MG/DL CREATININE (test code = 2214) 0.99 MG/DL eGFR AMER. (test cod e = 02639) 103 ML/MIN/1.73 eGFR NON- AMER. (test code = 52195) 89 ML/MIN/1.73 CALC BUN/CREAT (test code = 2235) 11 RATIO SODIUM (test code = 2231) 145 MEQ/L POTASSIUM (test code = 2228) 4.3 MEQ/L CHLORIDE (test code = 2215) 104 MEQ/L CARBON DIOXIDE (test code = 2206) 26 MEQ/L CALCIUM (test code = 2209) 9.7 MG/DL PROTEIN, TOTAL (test code = 2229) 7.2 G/DL ALBUMIN (test code = 2201) 4.4 G/DL CALC GLOBULIN (test code = 2240) 2.8 G/DL CALC A/G RATIO (test code = 2234) 1.6 RATIO BILIRUBIN, TOTAL (test code = 2207) 0.6 MG/DL ALKALINE PHOSPHATASE (test code = 2204) 61 U/L AST (test code = 2218) 17 U/L ALT (test code = 2219) 14 U/L COMPREHENSIVE METABOLIC [id number] 00:00:00* Test Item Value Reference Range Interpretation Comme nts GLUCOSE (test code = 2217) 71 MG/DL BUN (test code = 2208) 11 MG/DL CREATININE (test code = 2214) 0.99 MG/DL eGFR AMER. (test cod e = 42250) 103 ML/MIN/1.73 eGFR NON- AMER. (test code = 87648) 89 ML/MIN/1.73 CALC BUN/CREAT (test code = 2235) 11 RATIO SODIUM (test code = 2231) 145 MEQ/L POTASSIUM (test code = 2228) 4.3 MEQ/L CHLORIDE (test code = 2215) 104 MEQ/L CARBON DIOXIDE (test code = 2206) 26 MEQ/L CALCIUM (test code = 2209) 9.7 MG/DL PROTEIN, TOTAL (test code = 2229) 7.2 G/DL ALBUMIN (test code = 2201) 4.4 G/DL CALC GLOBULIN (test code = 2240) 2.8 G/DL CALC A/G RATIO (test code = 2234) 1.6 RATIO BILIRUBIN, TOTAL (test code = 2207) 0.6 MG/DL ALKALINE PHOSPHATASE (test code = 2204) 61 U/L AST (test code = 2218) 17 U/L ALT (test code = 2219) 14 U/L LIPID [id number] 00:00:00* Test Item Value Reference Range Interpretation Comme nts CHOLESTEROL (test code = 2210) 214 MG/DL TRIGLYCERIDES (test code = 2232) 144 MG/DL HDL CHOLESTEROL (test code = 2220) 48 MG/DL CALC LDL CHOL (test code = 2237) 139 MG/DL RISK RATIO LDL/HDL (test cod e = 2238) 2.90 RATIO LIPID [id number] 00:00:00* Test Item Value Reference Range Interpretation Comme nts CHOLESTEROL (test code = 2210) 214 MG/DL TRIGLYCERIDES (test code = 2232) 144 MG/DL HDL CHOLESTEROL (test code = 2220) 48 MG/DL CALC LDL CHOL (test code = 2237) 139 MG/DL RISK RATIO LDL/HDL (test cod e = 2238) 2.90 RATIO COMPREHENSIVE METABOLIC [id number] 00:00:00* Test Item Value Reference Range Interpretation Comme nts GLUCOSE (test code = 2217) 71 MG/DL BUN (test code = 2208) 11 MG/DL CREATININE (test code = 2214) 0.99 MG/DL eGFR AMER. (test cod e = 03501) 103 ML/MIN/1.73 eGFR NON- AMER. (test code = 85264) 89 ML/MIN/1.73 CALC BUN/CREAT (test code = 2235) 11 RATIO SODIUM (test code = 2231) 145 MEQ/L POTASSIUM (test code = 2228) 4.3 MEQ/L CHLORIDE (test code = 2215) 104 MEQ/L CARBON DIOXIDE (test code = 2206) 26 MEQ/L CALCIUM (test code = 2209) 9.7 MG/DL PROTEIN, TOTAL (test code = 2229) 7.2 G/DL ALBUMIN (test code = 2201) 4.4 G/DL CALC GLOBULIN (test code = 2240) 2.8 G/DL CALC A/G RATIO (test code = 2234) 1.6 RATIO BILIRUBIN, TOTAL (test code = 2207) 0.6 MG/DL ALKALINE PHOSPHATASE (test code = 2204) 61 U/L AST (test code = 2218) 17 U/L ALT (test code = 2219) 14 U/L COMPREHENSIVE METABOLIC [id number] 00:00:00* Test Item Value Reference Range Interpretation Comme nts GLUCOSE (test code = 2217) 71 MG/DL BUN (test code = 2208) 11 MG/DL CREATININE (test code = 2214) 0.99 MG/DL eGFR AMER. (test cod e = 41006) 103 ML/MIN/1.73 eGFR NON- AMER. (test code = 75351) 89 ML/MIN/1.73 CALC BUN/CREAT (test code = 2235) 11 RATIO SODIUM (test code = 2231) 145 MEQ/L POTASSIUM (test code = 2228) 4.3 MEQ/L CHLORIDE (test code = 2215) 104 MEQ/L CARBON DIOXIDE (test code = 2206) 26 MEQ/L CALCIUM (test code = 2209) 9.7 MG/DL PROTEIN, TOTAL (test code = 2229) 7.2 G/DL ALBUMIN (test code = 2201) 4.4 G/DL CALC GLOBULIN (test code = 2240) 2.8 G/DL CALC A/G RATIO (test code = 2234) 1.6 RATIO BILIRUBIN, TOTAL (test code = 2207) 0.6 MG/DL ALKALINE PHOSPHATASE (test code = 2204) 61 U/L AST (test code = 2218) 17 U/L ALT (test code = 2219) 14 U/L CBC W/AUTO [id number] 00:00:00* Test Item Value Reference Range Interpretation Comme nts WBC (test code = 1001) 3.5 K/UL [...] = 1013) 0.6 % IMMATURE GRANULOCYTES (test code = 1036) 0.0 % NUCLEATED RBCS (test code = 1065) 0.0 /100WBC'S PLATELET COUNT (test code = 1015) 154 K/UL ABSOLUTE NEUTROPHILS (test c ode = 1066) 1.16 K/UL ABSOLUTE LYMPHOCYTES (test c ode = 1067) 1.93 K/UL ABSOLUTE MONOCYTES (test cod e = 1068) 0.30 K/UL ABSOLUTE EOSINOPHILS (test c ode = 1040) 0.07 K/UL ABSOLUTE BASOPHILS (test cod e = 1069) 0.02 K/UL ABS IMMATURE GRANULOCYTES (t est code = 1020) 0.00 K/UL ABS NUCLEATED RBCS (test cod e = 77038) 0.00 K/UL CBC W/AUTO [id number] 00:00:00* Test Item Value Reference Range Interpretation Comme nts WBC (test code = 1001) 3.5 K/UL [...] = 1013) 0.6 % IMMATURE GRANULOCYTES (test code = 1036) 0.0 % NUCLEATED RBCS (test code = 1065) 0.0 /100WBC'S PLATELET COUNT (test code = 1015) 154 K/UL ABSOLUTE NEUTROPHILS (test c ode = 1066) 1.16 K/UL ABSOLUTE LYMPHOCYTES (test c ode = 1067) 1.93 K/UL ABSOLUTE MONOCYTES (test cod e = 1068) 0.30 K/UL ABSOLUTE EOSINOPHILS (test c ode = 1040) 0.07 K/UL ABSOLUTE BASOPHILS (test cod e = 1069) 0.02 K/UL ABS IMMATURE GRANULOCYTES (t est code = 1020) 0.00 K/UL ABS NUCLEATED RBCS (test cod e = 18384) 0.00 K/UL CBC W/AUTO [id number] 00:00:00* Test Item Value Reference Range Interpretation Comme nts WBC (test code = 1001) 3.5 K/UL [...] = 1013) 0.6 % IMMATURE GRANULOCYTES (test code = 1036) 0.0 % NUCLEATED RBCS (test code = 1065) 0.0 /100WBC'S PLATELET COUNT (test code = 1015) 154 K/UL ABSOLUTE NEUTROPHILS (test c ode = 1066) 1.16 K/UL ABSOLUTE LYMPHOCYTES (test c ode = 1067) 1.93 K/UL ABSOLUTE MONOCYTES (test cod e = 1068) 0.30 K/UL ABSOLUTE EOSINOPHILS (test c ode = 1040) 0.07 K/UL ABSOLUTE BASOPHILS (test cod e = 1069) 0.02 K/UL ABS IMMATURE GRANULOCYTES (t est code = 1020) 0.00 K/UL ABS NUCLEATED RBCS (test cod e = 48735) 0.00 K/UL COMPREHENSIVE METABOLIC [id number] 00:00:00* Test Item Value Reference Range Interpretation Comme nts GLUCOSE (test code = 2217) 90 MG/DL BUN (test code = 2208) 12 MG/DL CREATININE (test code = 2214) 1.01 MG/DL eGFR AMER. (test cod e = 53793) 101 ML/MIN/1.73 eGFR NON- AMER. (test code = 98138) 87 ML/MIN/1.73 CALC BUN/CREAT (test code = 2235) 12 RATIO SODIUM (test code = 2231) 142 MEQ/L POTASSIUM (test code = 2228) 4.2 MEQ/L CHLORIDE (test code = 2215) 104 MEQ/L CARBON DIOXIDE (test code = 2206) 27 MEQ/L CALCIUM (test code = 2209) 9.2 MG/DL PROTEIN, TOTAL (test code = 2229) 7.8 G/DL ALBUMIN (test code = 2201) 4.5 G/DL CALC GLOBULIN (test code = 2240) 3.3 G/DL CALC A/G RATIO (test code = 2234) 1.4 RATIO BILIRUBIN, TOTAL (test code = 2207) 0.6 MG/DL ALKALINE PHOSPHATASE (test code = 2204) 62 U/L AST (test code = 2218) 20 U/L ALT (test code = 2219) 21 U/L COMPREHENSIVE METABOLIC [id number] 00:00:00* Test Item Value Reference Range Interpretation Comme nts GLUCOSE (test code = 2217) 90 MG/DL BUN (test code = 2208) 12 MG/DL CREATININE (test code = 2214) 1.01 MG/DL eGFR AMER. (test cod e = 52835) 101 ML/MIN/1.73 eGFR NON- AMER. (test code = 07806) 87 ML/MIN/1.73 CALC BUN/CREAT (test code = 2235) 12 RATIO SODIUM (test code = 2231) 142 MEQ/L POTASSIUM (test code = 2228) 4.2 MEQ/L CHLORIDE (test code = 2215) 104 MEQ/L CARBON DIOXIDE (test code = 2206) 27 MEQ/L CALCIUM (test code = 2209) 9.2 MG/DL PROTEIN, TOTAL (test code = 2229) 7.8 G/DL ALBUMIN (test code = 2201) 4.5 G/DL CALC GLOBULIN (test code = 2240) 3.3 G/DL CALC A/G RATIO (test code = 2234) 1.4 RATIO BILIRUBIN, TOTAL (test code = 2207) 0.6 MG/DL ALKALINE PHOSPHATASE (test code = 2204) 62 U/L AST (test code = 2218) 20 U/L ALT (test code = 2219) 21 U/L LIPID [id number] 00:00:00* Test Item Value Reference Range Interpretation Comme nts CHOLESTEROL (test code = 2210) 203 MG/DL TRIGLYCERIDES (test code = 2232) 103 MG/DL HDL CHOLESTEROL (test code = 2220) 43 MG/DL CALC LDL CHOL (test code = 2237) 138 MG/DL RISK RATIO LDL/HDL (test cod e = 2238) 3.21 RATIO LIPID [id number] 00:00:00* Test Item Value Reference Range Interpretation Comme nts CHOLESTEROL (test code = 2210) 203 MG/DL TRIGLYCERIDES (test code = 2232) 103 MG/DL HDL CHOLESTEROL (test code = 2220) 43 MG/DL CALC LDL CHOL (test code = 2237) 138 MG/DL RISK RATIO LDL/HDL (test cod e = 2238) 3.21 RATIO CBC W/AUTO [id number] 00:00:00* Test Item Value Reference Range Interpretation Comme nts WBC (test code = 1001) 3.5 K/UL [...] = 1013) 0.6 % IMMATURE GRANULOCYTES (test code = 1036) 0.0 % NUCLEATED RBCS (test code = 1065) 0.0 /100WBC'S PLATELET COUNT (test code = 1015) 154 K/UL ABSOLUTE NEUTROPHILS (test c ode = 1066) 1.16 K/UL ABSOLUTE LYMPHOCYTES (test c ode = 1067) 1.93 K/UL ABSOLUTE MONOCYTES (test cod e = 1068) 0.30 K/UL ABSOLUTE EOSINOPHILS (test c ode = 1040) 0.07 K/UL ABSOLUTE BASOPHILS (test cod e = 1069) 0.02 K/UL ABS IMMATURE GRANULOCYTES (t est code = 1020) 0.00 K/UL ABS NUCLEATED RBCS (test cod e = 98853) 0.00 K/UL CBC W/AUTO [id number] 00:00:00* Test Item Value Reference Range Interpretation Comme nts WBC (test code = 1001) 3.5 K/UL [...] = 1013) 0.6 % IMMATURE GRANULOCYTES (test code = 1036) 0.0 % NUCLEATED RBCS (test code = 1065) 0.0 /100WBC'S PLATELET COUNT (test code = 1015) 154 K/UL ABSOLUTE NEUTROPHILS (test c ode = 1066) 1.16 K/UL ABSOLUTE LYMPHOCYTES (test c ode = 1067) 1.93 K/UL ABSOLUTE MONOCYTES (test cod e = 1068) 0.30 K/UL ABSOLUTE EOSINOPHILS (test c ode = 1040) 0.07 K/UL ABSOLUTE BASOPHILS (test cod e = 1069) 0.02 K/UL ABS IMMATURE GRANULOCYTES (t est code = 1020) 0.00 K/UL ABS NUCLEATED RBCS (test cod e = 70479) 0.00 K/UL CBC W/AUTO [id number] 00:00:00* Test Item Value Reference Range Interpretation Comme nts WBC (test code = 1001) 3.5 K/UL [...] = 1013) 0.6 % IMMATURE GRANULOCYTES (test code = 1036) 0.0 % NUCLEATED RBCS (test code = 1065) 0.0 /100WBC'S PLATELET COUNT (test code = 1015) 154 K/UL ABSOLUTE NEUTROPHILS (test c ode = 1066) 1.16 K/UL ABSOLUTE LYMPHOCYTES (test c ode = 1067) 1.93 K/UL ABSOLUTE MONOCYTES (test cod e = 1068) 0.30 K/UL ABSOLUTE EOSINOPHILS (test c ode = 1040) 0.07 K/UL ABSOLUTE BASOPHILS (test cod e = 1069) 0.02 K/UL ABS IMMATURE GRANULOCYTES (t est code = 1020) 0.00 K/UL ABS NUCLEATED RBCS (test cod e = 19949) 0.00 K/UL COMPREHENSIVE METABOLIC [id number] 00:00:00* Test Item Value Reference Range Interpretation Comme nts GLUCOSE (test code = 2217) 90 MG/DL BUN (test code = 2208) 12 MG/DL CREATININE (test code = 2214) 1.01 MG/DL eGFR AMER. (test cod e = 09881) 101 ML/MIN/1.73 eGFR NON- AMER. (test code = 23197) 87 ML/MIN/1.73 CALC BUN/CREAT (test code = 2235) 12 RATIO SODIUM (test code = 2231) 142 MEQ/L POTASSIUM (test code = 2228) 4.2 MEQ/L CHLORIDE (test code = 2215) 104 MEQ/L CARBON DIOXIDE (test code = 2206) 27 MEQ/L CALCIUM (test code = 2209) 9.2 MG/DL PROTEIN, TOTAL (test code = 2229) 7.8 G/DL ALBUMIN (test code = 2201) 4.5 G/DL CALC GLOBULIN (test code = 2240) 3.3 G/DL CALC A/G RATIO (test code = 2234) 1.4 RATIO BILIRUBIN, TOTAL (test code = 2207) 0.6 MG/DL ALKALINE PHOSPHATASE (test code = 2204) 62 U/L AST (test code = 2218) 20 U/L ALT (test code = 2219) 21 U/L COMPREHENSIVE METABOLIC [id number] 00:00:00* Test Item Value Reference Range Interpretation Comme nts GLUCOSE (test code = 2217) 90 MG/DL BUN (test code = 2208) 12 MG/DL CREATININE (test code = 2214) 1.01 MG/DL eGFR AMER. (test cod e = 64751) 101 ML/MIN/1.73 eGFR NON- AMER. (test code = 36834) 87 ML/MIN/1.73 CALC BUN/CREAT (test code = 2235) 12 RATIO SODIUM (test code = 2231) 142 MEQ/L POTASSIUM (test code = 2228) 4.2 MEQ/L CHLORIDE (test code = 2215) 104 MEQ/L CARBON DIOXIDE (test code = 2206) 27 MEQ/L CALCIUM (test code = 2209) 9.2 MG/DL PROTEIN, TOTAL (test code = 2229) 7.8 G/DL ALBUMIN (test code = 2201) 4.5 G/DL CALC GLOBULIN (test code = 2240) 3.3 G/DL CALC A/G RATIO (test code = 2234) 1.4 RATIO BILIRUBIN, TOTAL (test code = 2207) 0.6 MG/DL ALKALINE PHOSPHATASE (test code = 2204) 62 U/L AST (test code = 2218) 20 U/L ALT (test code = 2219) 21 U/L LIPID [id number] 00:00:00* Test Item Value Reference Range Interpretation Comme nts CHOLESTEROL (test code = 2210) 203 MG/DL TRIGLYCERIDES (test code = 2232) 103 MG/DL HDL CHOLESTEROL (test code = 2220) 43 MG/DL CALC LDL CHOL (test code = 2237) 138 MG/DL RISK RATIO LDL/HDL (test cod e = 2238) 3.21 RATIO LIPID [id number] 00:00:00* Test Item Value Reference Range Interpretation Comme nts CHOLESTEROL (test code = 2210) 203 MG/DL TRIGLYCERIDES (test code = 2232) 103 MG/DL HDL CHOLESTEROL (test code = 2220) 43 MG/DL CALC LDL CHOL (test code = 2237) 138 MG/DL RISK RATIO LDL/HDL (test cod e = 2238) 3.21 RATIO CBC W/AUTO [id number] 00:00:00* Test Item Value Reference Range Interpretation Comme nts WBC (test code = 1001) 3.5 K/UL [...] = 1013) 0.6 % IMMATURE GRANULOCYTES (test code = 1036) 0.0 % NUCLEATED RBCS (test code = 1065) 0.0 /100WBC'S PLATELET COUNT (test code = 1015) 154 K/UL ABSOLUTE NEUTROPHILS (test c ode = 1066) 1.16 K/UL ABSOLUTE LYMPHOCYTES (test c ode = 1067) 1.93 K/UL ABSOLUTE MONOCYTES (test cod e = 1068) 0.30 K/UL ABSOLUTE EOSINOPHILS (test c ode = 1040) 0.07 K/UL ABSOLUTE BASOPHILS (test cod e = 1069) 0.02 K/UL ABS IMMATURE GRANULOCYTES (t est code = 1020) 0.00 K/UL ABS NUCLEATED RBCS (test cod e = 79886) 0.00 K/UL CBC W/AUTO [id number] 00:00:00* Test Item Value Reference Range Interpretation Comme nts WBC (test code = 1001) 3.5 K/UL [...] = 1013) 0.6 % IMMATURE GRANULOCYTES (test code = 1036) 0.0 % NUCLEATED RBCS (test code = 1065) 0.0 /100WBC'S PLATELET COUNT (test code = 1015) 154 K/UL ABSOLUTE NEUTROPHILS (test c ode = 1066) 1.16 K/UL ABSOLUTE LYMPHOCYTES (test c ode = 1067) 1.93 K/UL ABSOLUTE MONOCYTES (test cod e = 1068) 0.30 K/UL ABSOLUTE EOSINOPHILS (test c ode = 1040) 0.07 K/UL ABSOLUTE BASOPHILS (test cod e = 1069) 0.02 K/UL ABS IMMATURE GRANULOCYTES (t est code = 1020) 0.00 K/UL ABS NUCLEATED RBCS (test cod e = 58734) 0.00 K/UL CBC W/AUTO [id number] 00:00:00* Test Item Value Reference Range Interpretation Comme nts WBC (test code = 1001) 3.5 K/UL [...] = 1013) 0.6 % IMMATURE GRANULOCYTES (test code = 1036) 0.0 % NUCLEATED RBCS (test code = 1065) 0.0 /100WBC'S PLATELET COUNT (test code = 1015) 154 K/UL ABSOLUTE NEUTROPHILS (test c ode = 1066) 1.16 K/UL ABSOLUTE LYMPHOCYTES (test c ode = 1067) 1.93 K/UL ABSOLUTE MONOCYTES (test cod e = 1068) 0.30 K/UL ABSOLUTE EOSINOPHILS (test c ode = 1040) 0.07 K/UL ABSOLUTE BASOPHILS (test cod e = 1069) 0.02 K/UL ABS IMMATURE GRANULOCYTES (t est code = 1020) 0.00 K/UL ABS NUCLEATED RBCS (test cod e = 69398) 0.00 K/UL COMPREHENSIVE METABOLIC [id number] 00:00:00* Test Item Value Reference Range Interpretation Comme nts GLUCOSE (test code = 2217) 90 MG/DL BUN (test code = 2208) 12 MG/DL CREATININE (test code = 2214) 1.01 MG/DL eGFR AMER. (test cod e = 08625) 101 ML/MIN/1.73 eGFR NON- AMER. (test code = 79850) 87 ML/MIN/1.73 CALC BUN/CREAT (test code = 2235) 12 RATIO SODIUM (test code = 2231) 142 MEQ/L POTASSIUM (test code = 2228) 4.2 MEQ/L CHLORIDE (test code = 2215) 104 MEQ/L CARBON DIOXIDE (test code = 2206) 27 MEQ/L CALCIUM (test code = 2209) 9.2 MG/DL PROTEIN, TOTAL (test code = 2229) 7.8 G/DL ALBUMIN (test code = 2201) 4.5 G/DL CALC GLOBULIN (test code = 2240) 3.3 G/DL CALC A/G RATIO (test code = 2234) 1.4 RATIO BILIRUBIN, TOTAL (test code = 2207) 0.6 MG/DL ALKALINE PHOSPHATASE (test code = 2204) 62 U/L AST (test code = 2218) 20 U/L ALT (test code = 2219) 21 U/L COMPREHENSIVE METABOLIC [id number] 00:00:00* Test Item Value Reference Range Interpretation Comme nts GLUCOSE (test code = 2217) 90 MG/DL BUN (test code = 2208) 12 MG/DL CREATININE (test code = 2214) 1.01 MG/DL eGFR AMER. (test cod e = 31424) 101 ML/MIN/1.73 eGFR NON- AMER. (test code = 14366) 87 ML/MIN/1.73 CALC BUN/CREAT (test code = 2235) 12 RATIO SODIUM (test code = 2231) 142 MEQ/L POTASSIUM (test code = 2228) 4.2 MEQ/L CHLORIDE (test code = 2215) 104 MEQ/L CARBON DIOXIDE (test code = 2206) 27 MEQ/L CALCIUM (test code = 2209) 9.2 MG/DL PROTEIN, TOTAL (test code = 2229) 7.8 G/DL ALBUMIN (test code = 2201) 4.5 G/DL CALC GLOBULIN (test code = 2240) 3.3 G/DL CALC A/G RATIO (test code = 2234) 1.4 RATIO BILIRUBIN, TOTAL (test code = 2207) 0.6 MG/DL ALKALINE PHOSPHATASE (test code = 2204) 62 U/L AST (test code = 2218) 20 U/L ALT (test code = 2219) 21 U/L LIPID [id number] 00:00:00* Test Item Value Reference Range Interpretation Comme nts CHOLESTEROL (test code = 2210) 203 MG/DL TRIGLYCERIDES (test code = 2232) 103 MG/DL HDL CHOLESTEROL (test code = 2220) 43 MG/DL CALC LDL CHOL (test code = 2237) 138 MG/DL RISK RATIO LDL/HDL (test cod e = 2238) 3.21 RATIO LIPID [id number] 00:00:00* Test Item Value Reference Range Interpretation Comme nts CHOLESTEROL (test code = 2210) 203 MG/DL TRIGLYCERIDES (test code = 2232) 103 MG/DL HDL CHOLESTEROL (test code = 2220) 43 MG/DL CALC LDL CHOL (test code = 2237) 138 MG/DL RISK RATIO LDL/HDL (test cod e = 2238) 3.21 RATIO HEMOGLOBIN [id number] 00:00:00* Test Item Value Reference Range Interpretation Comme nts HEMOGLOBIN A1c (test code = 61445) 5.7 % HEMOGLOBIN [id number] 00:00:00* Test Item Value Reference Range Interpretation Comme nts HEMOGLOBIN A1c (test code = 10277) 5.7 % HEMOGLOBIN [id number] 00:00:00* Test Item Value Reference Range Interpretation Comme nts HEMOGLOBIN A1c (test code = 52951) 5.7 % COMPREHENSIVE METABOLIC [id number] 00:00:00* Test Item Value Reference Range Interpretation Comme nts GLUCOSE (test code = 2217) 79 MG/DL BUN (test code = 2208) 13 MG/DL CREATININE (test code = 2214) 1.08 MG/DL eGFR AMER. (test cod e = 34601) 94 ML/MIN/1.73 eGFR NON- AMER. (test code = 11699) 81 ML/MIN/1.73 CALC BUN/CREAT (test code = 2235) 12 RATIO SODIUM (test code = 2231) 143 MEQ/L POTASSIUM (test code = 2228) 4.2 MEQ/L CHLORIDE (test code = 2215) 105 MEQ/L CARBON DIOXIDE (test code = 2206) 26 MEQ/L CALCIUM (test code = 2209) 9.4 MG/DL PROTEIN, TOTAL (test code = 2229) 7.8 G/DL ALBUMIN (test code = 2201) 4.7 G/DL CALC GLOBULIN (test code = 2240) 3.1 G/DL CALC A/G RATIO (test code = 2234) 1.5 RATIO BILIRUBIN, TOTAL (test code = 2207) 0.8 MG/DL ALKALINE PHOSPHATASE (test code = 2204) 65 U/L AST (test code = 2218) 16 U/L ALT (test code = 2219) 17 U/L COMPREHENSIVE METABOLIC [id number] 00:00:00* Test Item Value Reference Range Interpretation Comme nts GLUCOSE (test code = 2217) 79 MG/DL BUN (test code = 2208) 13 MG/DL CREATININE (test code = 2214) 1.08 MG/DL eGFR AMER. (test cod e = 88023) 94 ML/MIN/1.73 eGFR NON- AMER. (test code = 02297) 81 ML/MIN/1.73 CALC BUN/CREAT (test code = 2235) 12 RATIO SODIUM (test code = 2231) 143 MEQ/L POTASSIUM (test code = 2228) 4.2 MEQ/L CHLORIDE (test code = 2215) 105 MEQ/L CARBON DIOXIDE (test code = 2206) 26 MEQ/L CALCIUM (test code = 2209) 9.4 MG/DL PROTEIN, TOTAL (test code = 2229) 7.8 G/DL ALBUMIN (test code = 2201) 4.7 G/DL CALC GLOBULIN (test code = 2240) 3.1 G/DL CALC A/G RATIO (test code = 2234) 1.5 RATIO BILIRUBIN, TOTAL (test code = 2207) 0.8 MG/DL ALKALINE PHOSPHATASE (test code = 2204) 65 U/L AST (test code = 2218) 16 U/L ALT (test code = 2219) 17 U/L LIPID [id number] 00:00:00* Test Item Value Reference Range Interpretation Comme nts CHOLESTEROL (test code = 2210) 218 MG/DL TRIGLYCERIDES (test code = 2232) 113 MG/DL HDL CHOLESTEROL (test code = 2220) 49 MG/DL CALC LDL CHOL (test code = 2237) 146 MG/DL RISK RATIO LDL/HDL (test cod e = 2238) 2.98 RATIO LIPID [id number] 00:00:00* Test Item Value Reference Range Interpretation Comme nts CHOLESTEROL (test code = 2210) 218 MG/DL TRIGLYCERIDES (test code = 2232) 113 MG/DL HDL CHOLESTEROL (test code = 2220) 49 MG/DL CALC LDL CHOL (test code = 2237) 146 MG/DL RISK RATIO LDL/HDL (test cod e = 2238) 2.98 RATIO HEMOGLOBIN [id number] 00:00:00* Test Item Value Reference Range Interpretation Comme nts HEMOGLOBIN A1c (test code = 35240) 5.7 % HEMOGLOBIN [id number] 00:00:00* Test Item Value Reference Range Interpretation Comme nts HEMOGLOBIN A1c (test code = 10954) 5.7 % HEMOGLOBIN [id number] 00:00:00* Test Item Value Reference Range Interpretation Comme nts HEMOGLOBIN A1c (test code = 54619) 5.7 % COMPREHENSIVE METABOLIC [id number] 00:00:00* Test Item Value Reference Range Interpretation Comme nts GLUCOSE (test code = 2217) 79 MG/DL BUN (test code = 8) 13 MG/DL CREATININE (test code = 2214) 1.08 MG/DL eGFR AMER. (test cod e = 84368) 94 ML/MIN/1.73 eGFR NON- AMER. (test code = 08999) 81 ML/MIN/1.73 CALC BUN/CREAT (test code = 2235) 12 RATIO SODIUM (test code = 2231) 143 MEQ/L POTASSIUM (test code = 2228) 4.2 MEQ/L CHLORIDE (test code = 2215) 105 MEQ/L CARBON DIOXIDE (test code = 2206) 26 MEQ/L CALCIUM (test code = 2209) 9.4 MG/DL PROTEIN, TOTAL (test code = 2229) 7.8 G/DL ALBUMIN (test code = 2201) 4.7 G/DL CALC GLOBULIN (test code = 2240) 3.1 G/DL CALC A/G RATIO (test code = 2234) 1.5 RATIO BILIRUBIN, TOTAL (test code = 2207) 0.8 MG/DL ALKALINE PHOSPHATASE (test code = 2204) 65 U/L AST (test code = 2218) 16 U/L ALT (test code = 2219) 17 U/L COMPREHENSIVE METABOLIC [id number] 00:00:00* Test Item Value Reference Range Interpretation Comme nts GLUCOSE (test code = 2217) 79 MG/DL BUN (test code = 2208) 13 MG/DL CREATININE (test code = 2214) 1.08 MG/DL eGFR AMER. (test cod e = 61618) 94 ML/MIN/1.73 eGFR NON- AMER. (test code = 67188) 81 ML/MIN/1.73 CALC BUN/CREAT (test code = 2235) 12 RATIO SODIUM (test code = 2231) 143 MEQ/L POTASSIUM (test code = 2228) 4.2 MEQ/L CHLORIDE (test code = 2215) 105 MEQ/L CARBON DIOXIDE (test code = 2206) 26 MEQ/L CALCIUM (test code = 2209) 9.4 MG/DL PROTEIN, TOTAL (test code = 2229) 7.8 G/DL ALBUMIN (test code = 2201) 4.7 G/DL CALC GLOBULIN (test code = 2240) 3.1 G/DL CALC A/G RATIO (test code = 2234) 1.5 RATIO BILIRUBIN, TOTAL (test code = 2207) 0.8 MG/DL ALKALINE PHOSPHATASE (test code = 2204) 65 U/L AST (test code = 2218) 16 U/L ALT (test code = 2219) 17 U/L LIPID [id number] 00:00:00* Test Item Value Reference Range Interpretation Comme nts CHOLESTEROL (test code = 2210) 218 MG/DL TRIGLYCERIDES (test code = 2232) 113 MG/DL HDL CHOLESTEROL (test code = 2220) 49 MG/DL CALC LDL CHOL (test code = 2237) 146 MG/DL RISK RATIO LDL/HDL (test cod e = 2238) 2.98 RATIO LIPID [id number] 00:00:00* Test Item Value Reference Range Interpretation Comme nts CHOLESTEROL (test code = 2210) 218 MG/DL TRIGLYCERIDES (test code = 2232) 113 MG/DL HDL CHOLESTEROL (test code = 2220) 49 MG/DL CALC LDL CHOL (test code = 2237) 146 MG/DL RISK RATIO LDL/HDL (test cod e = 2238) 2.98 RATIO HEMOGLOBIN [id number] 00:00:00* Test Item Value Reference Range Interpretation Comme nts HEMOGLOBIN A1c (test code = 29117) 5.7 % HEMOGLOBIN [id number] 00:00:00* Test Item Value Reference Range Interpretation Comme nts HEMOGLOBIN A1c (test code = 72679) 5.7 % HEMOGLOBIN [id number] 00:00:00* Test Item Value Reference Range Interpretation Comme nts HEMOGLOBIN A1c (test code = 61466) 5.7 % COMPREHENSIVE METABOLIC [id number] 00:00:00* Test Item Value Reference Range Interpretation Comme nts GLUCOSE (test code = 2217) 79 MG/DL BUN (test code = 2208) 13 MG/DL CREATININE (test code = 2214) 1.08 MG/DL eGFR AMER. (test cod e = 58787) 94 ML/MIN/1.73 eGFR NON- AMER. (test code = 74554) 81 ML/MIN/1.73 CALC BUN/CREAT (test code = 2235) 12 RATIO SODIUM (test code = 2231) 143 MEQ/L POTASSIUM (test code = 2228) 4.2 MEQ/L CHLORIDE (test code = 2215) 105 MEQ/L CARBON DIOXIDE (test code = 2206) 26 MEQ/L CALCIUM (test code = 2209) 9.4 MG/DL PROTEIN, TOTAL (test code = 2229) 7.8 G/DL ALBUMIN (test code = 2201) 4.7 G/DL CALC GLOBULIN (test code = 2240) 3.1 G/DL CALC A/G RATIO (test code = 2234) 1.5 RATIO BILIRUBIN, TOTAL (test code = 2207) 0.8 MG/DL ALKALINE PHOSPHATASE (test code = 2204) 65 U/L AST (test code = 2218) 16 U/L ALT (test code = 2219) 17 U/L COMPREHENSIVE METABOLIC [id number] 00:00:00* Test Item Value Reference Range Interpretation Comme nts GLUCOSE (test code = 2217) 79 MG/DL BUN (test code = 2208) 13 MG/DL CREATININE (test code = 2214) 1.08 MG/DL eGFR AMER. (test cod e = 06623) 94 ML/MIN/1.73 eGFR NON- AMER. (test code = 18097) 81 ML/MIN/1.73 CALC BUN/CREAT (test code = 2235) 12 RATIO SODIUM (test code = 2231) 143 MEQ/L POTASSIUM (test code = 2228) 4.2 MEQ/L CHLORIDE (test code = 2215) 105 MEQ/L CARBON DIOXIDE (test code = 2206) 26 MEQ/L CALCIUM (test code = 2209) 9.4 MG/DL PROTEIN, TOTAL (test code = 2229) 7.8 G/DL ALBUMIN (test code = 2201) 4.7 G/DL CALC GLOBULIN (test code = 2240) 3.1 G/DL CALC A/G RATIO (test code = 2234) 1.5 RATIO BILIRUBIN, TOTAL (test code = 2207) 0.8 MG/DL ALKALINE PHOSPHATASE (test code = 2204) 65 U/L AST (test code = 2218) 16 U/L ALT (test code = 2219) 17 U/L LIPID [id number] 00:00:00* Test Item Value Reference Range Interpretation Comme nts CHOLESTEROL (test code = 2210) 218 MG/DL TRIGLYCERIDES (test code = 2232) 113 MG/DL HDL CHOLESTEROL (test code = 2220) 49 MG/DL CALC LDL CHOL (test code = 2237) 146 MG/DL RISK RATIO LDL/HDL (test cod e = 2238) 2.98 RATIO LIPID [id number] 00:00:00* Test Item Value Reference Range Interpretation Comme nts CHOLESTEROL (test code = 2210) 218 MG/DL TRIGLYCERIDES (test code = 2232) 113 MG/DL HDL CHOLESTEROL (test code = 2220) 49 MG/DL CALC LDL CHOL (test code = 2237) 146 MG/DL RISK RATIO LDL/HDL (test cod e = 2238) 2.98 RATIO [employer] [id number] 00:00:00* Test Item Value Reference Range Interpretation Comme nts PACHECO (Sm) ANTIBODY (test co de = 70429) <0.2 AI [employer] ANTIBODY (test code = 63604) <0.2 AI [employer] [id number] 00:00:00* Test Item Value Reference Range Interpretation Comme nts PACHECO (Sm) ANTIBODY (test co de = 30376) <0.2 [employer] ANTIBODY (test code = 66385) <0.2 AI [employer] [id number] 00:00:00* Test Item Value Reference Range Interpretation Comme nts PACHECO (Sm) ANTIBODY (test co de = 66754) <0.2 [employer] ANTIBODY (test code = 39778) <0.2 AI [employer] [id number] 00:00:00* Test Item Value Reference Range Interpretation Comme nts PACHECO (Sm) ANTIBODY (test co de = 60029) <0.2 [employer] ANTIBODY (test code = 07877) <0.2 AI [employer] [id number] 00:00:00* Test Item Value Reference Range Interpretation Comme nts PACHECO (Sm) ANTIBODY (test co de = 44005) <0.2 [employer] ANTIBODY (test code = 19921) <0.2 AI [employer] [id number] 00:00:00* Test Item Value Reference Range Interpretation Comme nts PACHECO (Sm) ANTIBODY (test co de = 38271) <0.2 [employer] ANTIBODY (test code = 88630) <0.2 AI SEROTONIN, [id number] 00:00:00* Test Item Value Reference Range Interpretation Comme nts SEROTONIN, SERUM (test code = 4258) 81 ng/mL SEROTONIN, [id number] 00:00:00* Test Item Value Reference Range Interpretation Comme nts SEROTONIN, SERUM (test code = 4258) 81 ng/mL SEROTONIN, [id number] 00:00:00* Test Item Value Reference Range Interpretation Comme nts SEROTONIN, SERUM (test code = 4258) 81 ng/mL SEROTONIN, [id number] 00:00:00* Test Item Value Reference Range Interpretation Comme nts SEROTONIN, SERUM (test code = 4258) 81 ng/mL SEROTONIN, [id number] 00:00:00* Test Item Value Reference Range Interpretation Comme nts SEROTONIN, SERUM (test code = 4258) 81 ng/mL SEROTONIN, [id number] 00:00:00* Test Item Value Reference Range Interpretation Comme nts SEROTONIN, SERUM (test code = 4258) 81 ng/mL DNA DS [id number] 00:00:00* Test Item Value Reference Range Interpretation Comme nts dsDNA ANTIBODY (test code = 4287) 1.0 IU/ML DNA DS [id number] 00:00:00* Test Item Value Reference Range Interpretation Comme nts dsDNA ANTIBODY (test code = 4287) 1.0 IU/ML DNA DS [id number] 00:00:00* Test Item Value Reference Range Interpretation Comme nts dsDNA ANTIBODY (test code = 4287) 1.0 IU/ML DNA DS [id number] 00:00:00* Test Item Value Reference Range Interpretation Comme nts dsDNA ANTIBODY (test code = 4287) 1.0 IU/ML DNA DS [id number] 00:00:00* Test Item Value Reference Range Interpretation Comme nts dsDNA ANTIBODY (test code = 4287) 1.0 IU/ML DNA DS [id number] 00:00:00* Test Item Value Reference Range Interpretation Comme nts dsDNA ANTIBODY (test code = 4287) 1.0 IU/ML ACUTE HEPATITIS [id number] 00:00:00* Test Item Value Reference Range Interpretation Comme nts HEPATITIS A IgM (test code = 17787) NON-REACTIVE HEPATITIS B CORE IgM (test c ode = 4644) NON-REACTIVE HEPATITIS B SURF AG (test co de = 2739) NON-REACTIVE HEPATITIS C ANTIBODY (test c ode = 4675) NON-REACTIVE HCV INDEX (test code = 21012) 0.10 INTERPRETATION HEPATITIS A: (test code = 2552) (NOTE) INTERPRETATION HEPATITIS B: (test code = 92566) (NOTE) INTERPRETATION HEPATITIS C: (test code = 01972) (NOTE) ACUTE HEPATITIS [id number] 00:00:00* Test Item Value Reference Range Interpretation Comme nts HEPATITIS A IgM (test code = 24934) NON-REACTIVE HEPATITIS B CORE IgM (test c ode = 4644) NON-REACTIVE HEPATITIS B SURF AG (test co de = 2739) NON-REACTIVE HEPATITIS C ANTIBODY (test c ode = 4675) NON-REACTIVE HCV INDEX (test code = 06350) 0.10 INTERPRETATION HEPATITIS A: (test code = 2552) (NOTE) INTERPRETATION HEPATITIS B: (test code = 54555) (NOTE) INTERPRETATION HEPATITIS C: (test code = 16524) (NOTE) ACUTE HEPATITIS [id number] 00:00:00* Test Item Value Reference Range Interpretation Comme nts HEPATITIS A IgM (test code = 46685) NON-REACTIVE HEPATITIS B CORE IgM (test c ode = 4644) NON-REACTIVE HEPATITIS B SURF AG (test co de = 2739) NON-REACTIVE HEPATITIS C ANTIBODY (test c ode = 4675) NON-REACTIVE HCV INDEX (test code = 39498) 0.10 INTERPRETATION HEPATITIS A: (test code = 2552) (NOTE) INTERPRETATION HEPATITIS B: (test code = 46046) (NOTE) INTERPRETATION HEPATITIS C: (test code = 57114) (NOTE) ACUTE HEPATITIS [id number] 00:00:00* Test Item Value Reference Range Interpretation Comme nts HEPATITIS A IgM (test code = 20686) NON-REACTIVE HEPATITIS B CORE IgM (test c ode = 4644) NON-REACTIVE HEPATITIS B SURF AG (test co de = 2739) NON-REACTIVE HEPATITIS C ANTIBODY (test c ode = 4675) NON-REACTIVE HCV INDEX (test code = 21227) 0.10 INTERPRETATION HEPATITIS A: (test code = 2552) (NOTE) INTERPRETATION HEPATITIS B: (test code = 86588) (NOTE) INTERPRETATION HEPATITIS C: (test code = 28078) (NOTE) ACUTE HEPATITIS [id number] 00:00:00* Test Item Value Reference Range Interpretation Comme nts HEPATITIS A IgM (test code = 72352) NON-REACTIVE HEPATITIS B CORE IgM (test c ode = 4644) NON-REACTIVE HEPATITIS B SURF AG (test co de = 2739) NON-REACTIVE HEPATITIS C ANTIBODY (test c ode = 4675) NON-REACTIVE HCV INDEX (test code = 67994) 0.10 INTERPRETATION HEPATITIS A: (test code = 2552) (NOTE) INTERPRETATION HEPATITIS B: (test code = 34218) (NOTE) INTERPRETATION HEPATITIS C: (test code = 39934) (NOTE) ACUTE HEPATITIS [id number] 00:00:00* Test Item Value Reference Range Interpretation Comme nts HEPATITIS A IgM (test code = 59367) NON-REACTIVE HEPATITIS B CORE IgM (test c ode = 4644) NON-REACTIVE HEPATITIS B SURF AG (test co de = 2739) NON-REACTIVE HEPATITIS C ANTIBODY (test c ode = 4675) NON-REACTIVE HCV INDEX (test code = 10729) 0.10 INTERPRETATION HEPATITIS A: (test code = 2552) (NOTE) INTERPRETATION HEPATITIS B: (test code = 66698) (NOTE) INTERPRETATION HEPATITIS C: (test code = 58512) (NOTE) GC, AMPLIFIED, [id number] 00:00:00* Test Item Value Reference Range Interpretation Comme nts GONORRHEA, TMA (test code = 23675) NEGATIVE GC, AMPLIFIED, [id number] 00:00:00* Test Item Value Reference Range Interpretation Comme nts GONORRHEA, TMA (test code = 93301) NEGATIVE CHLAMYDIA, AMPLIFIED, [id number] 00:00:00* Test Item Value Reference Range Interpretation Comme nts CHLAMYDIA, TMA (test code = 72403) NEGATIVE CHLAMYDIA, AMPLIFIED, [id number] 00:00:00* Test Item Value Reference Range Interpretation Comme nts CHLAMYDIA, TMA (test code = 61177) NEGATIVE MOOSE NON-REFLEX TO [id number] 00:00:00* Test Item Value Reference Range Interpretation Comme nts ANTI-NUCLEAR ANTIBODIES (homero t code = 3506) POSITIVE MOOSE NON-REFLEX TO [id number] 00:00:00* Test Item Value Reference Range Interpretation Comme nts ANTI-NUCLEAR ANTIBODIES (homero t code = 3506) POSITIVE GC, AMPLIFIED, [id number] 00:00:00* Test Item Value Reference Range Interpretation Comme nts GONORRHEA, TMA (test code = 22307) NEGATIVE GC, AMPLIFIED, [id number] 00:00:00* Test Item Value Reference Range Interpretation Comme nts GONORRHEA, TMA (test code = 12994) NEGATIVE CHLAMYDIA, AMPLIFIED, [id number] 00:00:00* Test Item Value Reference Range Interpretation Comme nts CHLAMYDIA, TMA (test code = 71698) NEGATIVE CHLAMYDIA, AMPLIFIED, [id number] 00:00:00* Test Item Value Reference Range Interpretation Comme nts CHLAMYDIA, TMA (test code = 19530) NEGATIVE MOOSE NON-REFLEX TO [id number] 00:00:00* Test Item Value Reference Range Interpretation Comme nts ANTI-NUCLEAR ANTIBODIES (homero t code = 3506) POSITIVE MOOSE NON-REFLEX TO [id number] 00:00:00* Test Item Value Reference Range Interpretation Comme nts ANTI-NUCLEAR ANTIBODIES (homero t code = 3506) POSITIVE GC, AMPLIFIED, [id number] 00:00:00* Test Item Value Reference Range Interpretation Comme nts GONORRHEA, TMA (test code = 62684) NEGATIVE GC, AMPLIFIED, [id number] 00:00:00* Test Item Value Reference Range Interpretation Comme nts GONORRHEA, TMA (test code = 38731) NEGATIVE CHLAMYDIA, AMPLIFIED, [id number] 00:00:00* Test Item Value Reference Range Interpretation Comme nts CHLAMYDIA, TMA (test code = 46501) NEGATIVE CHLAMYDIA, AMPLIFIED, [id number] 00:00:00* Test Item Value Reference Range Interpretation Comme nts CHLAMYDIA, TMA (test code = 55560) NEGATIVE MOOSE NON-REFLEX TO [id number] 00:00:00* Test Item Value Reference Range Interpretation Comme nts ANTI-NUCLEAR ANTIBODIES (homero t code = 3506) POSITIVE MOOSE NON-REFLEX TO [id number] 00:00:00* Test Item Value Reference Range Interpretation Comme nts ANTI-NUCLEAR ANTIBODIES (homero t code = 3506) POSITIVE
[2023-09-29 11:25] LABS: Absolute Lymphocytes (CBC) 1.7 K/uL (0.7-4.9); Hematocrit 40.3 % (39.6-49.0); Lymphocytes % 55.2 % (15.3-44.8); MCV 94.9 fL (80-100); MPV 7.8 fL (7.6-11.3); Platelets 175 thou/uL (152-406); RBC Red Blood Cell Count 4.25 M/uL (4.33-5.43)
[2023-09-29 11:48] LABS: Potassium 3.9 mEq/L (3.5-5.1); Troponin High Sensitivity 4.9 pg/mL (<58.9)
--- NOTE | 2023-09-29 12:56 | RAD REPORT ---
EXAM DESCRIPTION: RAD - Chest Single View - 09/29/2023 12:42 pm CLINICAL HISTORY: defib issues Chest pain. COMPARISON: Chest Single View dated 03/03/2023; CHEST SINGLE VIEW dated 11/13/2009; CHEST SINGLE VIEW d ated 04/13/2009; CHEST SINGLE VIEW dated 12/30/2008 FINDINGS: Portable technique limits examination quality. The lungs are grossly clear. The heart is normal in size. No displaced fractures.Single lead pacer/de fibrillator device. IMPRESSION: No acute intrathoracic process suspected.
--- NOTE | 2023-09-29 13:09 | EDPHYS ---
Physician Documentation [facility] Name: Dennis Lugo Age: 53 yrs Sex: Male : 1970 Arrival Date: 09/29/2023 Time: 10:15 Bed 11 Private MD: ED Physician Negro Pleitez HPI: 09/29 10:49 This 53 yrs old Black Male presents to ER via Ambulatory with complaints of Defib ec2 problem. 10:49 Patient arrives today due to concern for issues with his defibrillator. Patient has a ec2 defibrillator in place that was placed in 2018, had a battery replacement in 2017, arrives today due to concern for abnormal sounds from the device. Patient reports no chest pain or difficulty breathing, denies any other concerns.. Historical: - Allergies: 10:31 No Known Allergies; ld1 - PMHx: 10:31 Congestive heart failure; defibrillator; Hypertensive disorder; mitral valve prolapse; ld1 - Immunization history:: Adult Immunizations up to date. - Social history:: Smoking status: Patient denies any tobacco usage or history of. Patient/guardian denies using alcohol, street drugs. ROS: 10:49 Constitutional: as per hpi ec2 Exam: 10:49 Constitutional: GEN: NAD Head: atraumatic Eyes: EOMI Ears: External ears are ec2 normal. CV: regular rate LUNGS: no respiratory distress ABD: non-distended SKIN: no evidence of rashes MSK: no evidence of trauma NEURO: moves all extremities equally Vital Signs: 10:30 BP 117 / 74; Pulse 64; Resp 18; Temp 98.9(TE); Pulse Ox 97% on R/A; Weight 74.84 kg; ld1 Height 5 ft. 11 in. ; Pain 0/10; 10:30 Body Mass Index 23.01 (74.84 kg, 180.34 cm) ld1 10:30 Pain Scale: Adult ld1 MDM: 10:48 Patient medically screened. ec2 10:49 Data reviewed: vital signs. ED course: Patient arrives today for evaluation of his ec2 defibrillator. Examination remarkable for well-appearing nontoxic individual is otherwise in no acute distress. Will obtain lab work, EKG, chest x-ray, interrogate pacemaker as well. Currently considered process such as battery malfunction, lead displacement or fracture, arrhythmia.. 11:37 ED course: EKG independently reviewed and interpreted by me, shows normal sinus rhythm, ec2 rate of 69, no acute ST segment elevations, intervals are nonconcerning, PAC noted.. 11:52 ED course: Metabolic profile reassuring, CBC nonactionable, troponin within normal ec2 ranges. . 12:36 ED course: I discussed case with [employer], they reported patient is having ec2 nonsustained V. tach and the device is appropriately working. He is having episodes of V. tach that are so regular that occasionally the device is interpreting as noise, they recommended following up in clinic to have his settings readjusted.. 13:08 ED course: Chest x-ray shows no acute intrathoracic process. Will discharge home have ec2 follow-up with the show horse driver. Return precautions given.. 09/29 10:48 Order name: Basic Metabolic Panel; Complete Time: 11:52 ec2 09/29 10:48 Order name: CBC with Diff; Complete Time: 11:52 ec2 09/29 10:48 Order name: Troponin HS; Complete Time: 11:52 ec2 09/29 10:48 Order name: XRAY Chest (1 view); Complete Time: 13:08 ec2 09/29 10:48 Order name: EKG; Complete Time: 10:49 ec2 09/29 10:48 Order name: Cardiac monitoring; Complete Time: 13:10 ec2 09/29 10:48 Order name: EKG - Nurse/Tech; Complete Time: 11:43 ec2 09/29 10:48 Order name: IV Saline Lock; Complete Time: 11:20 ec2 09/29 10:48 Order name: Labs collected and sent; Complete Time: 11:20 ec2 09/29 10:48 Order name: O2 Per Protocol; Complete Time: 11:53 ec2 09/29 10:48 Order name: O2 Sat Monitoring; Complete Time: 11:53 ec2 09/29 11:20 Order name: Misc. Order: Interrogate pacemaker; Complete Time: 11:53 ec2 Administered Medications: No medications were administered Disposition Summary: 09/29/23 13:09 Discharge Ordered Condition: Stable ec2 Diagnosis - Encounter for adjustment and management of automatic implantable cardiac ec2 defibrillator Followup: ec2 - With: Private Physician - When: - Reason: Recheck today's complaints Discharge Instructions: - Discharge Summary Sheet ec2 Forms: - Medication Reconciliation Form ec2 - Thank You Letter ec2 - Antibiotic Education ec2 - Prescription Opioid Use ec2 - Patient Portal Instructions ec2 - Leadership Thank You Letter ec2 Signatures: Dispatcher [employer] Padmini Landers RN RN ld1 Negro Pleitez MD MD ec2
--- NOTE | 2023-09-29 13:09 | ER ---
Nurse's Notes [facility] Name: Dennis Lugo Age: 53 yrs Sex: Male : 1970 Arrival Date: 09/29/2023 Time: 10:15 Bed 11 Private MD: Diagnosis: Encounter for adjustment and management of automatic implantable cardiac defibrillator Presentation: 09/29 10:30 Chief complaint: Patient states: Defibrillator alarm went off last night and once while ld1 walking into ER. Pt reports calling [employer] and they suggested to come to ER. Pt states "I am not having any pain but I have had this defibrillator for 15 years and this has never happened.". Coronavirus screen: At this time, the client does not indicate any symptoms associated with coronavirus-19. Ebola Screen: No symptoms or risks identified at this time. Initial Sepsis Screen: Does the patient meet any 2 criteria? No. Patient's initial sepsis screen is negative. Does the patient have a suspected source of infection? No. Patient's initial sepsis screen is negative. Risk Assessment: Do you want to hurt yourself or someone else? Patient reports no desire to harm self or others. Onset of symptoms was September 29, 2023. 10:30 Method Of Arrival: Ambulatory ld1 10:30 Acuity: GHULAM 3 ld1 Triage Assessment: 10:31 General: Appears in no apparent distress. comfortable, Behavior is calm, cooperative, ld1 appropriate for age. Pain: Denies pain. EENT: No signs and/or symptoms were reported regarding the EENT system. Neuro: Level of Consciousness is awake, alert, obeys commands, Oriented to person, place, time, situation. Cardiovascular: Capillary refill < 3 seconds Patient's skin is warm and dry. Respiratory: Airway is patent Respiratory effort is even, unlabored. GI: Abdomen is flat, non-distended. : No signs and/or symptoms were reported regarding the genitourinary system. Derm: No signs and/or symptoms reported regarding the dermatologic system. Musculoskeletal: No signs and/or symptoms reported regarding the musculoskeletal system. Historical: - Allergies: 10:31 No Known Allergies; ld1 - PMHx: 10:31 Congestive heart failure; defibrillator; Hypertensive disorder; mitral valve prolapse; ld1 - Immunization history:: Adult Immunizations up to date. - Social history:: Smoking status: Patient denies any tobacco usage or history of. Patient/guardian denies using alcohol, street drugs. Screenin:15 [facility] ED Fall Risk Assessment (Adult) History of falling in the last 3 months, iw including since admission No falls in past 3 months (0 pts). Abuse screen: Denies threats or abuse. Denies injuries from another. Nutritional screening: No deficits noted. Tuberculosis screening: No symptoms or risk factors identified. Vital Signs: 10:30 BP 117 / 74; Pulse 64; Resp 18; Temp 98.9(TE); Pulse Ox 97% on R/A; Weight 74.84 kg; ld1 Height 5 ft. 11 in. ; Pain 0/10; 10:30 Body Mass Index 23.01 (74.84 kg, 180.34 cm) ld1 10:30 Pain Scale: Adult ld1 ED Course: 10:26 Patient arrived in ED. mr 10:29 Negro Pleitez MD is Attending Physician. ec2 10:31 Triage completed. ld1 10:31 Arm band placed on right wrist. ld1 11:07 Beryl Sibley RN is Primary Nurse. iw 12:44 XRAY Chest (1 view) In Process Unspecified. EDMS 13:15 No provider procedures requiring assistance completed. IV discontinued, intact, iw bleeding controlled, No redness/swelling at site. 13:16 Patient has correct armband on for positive identification. Bed in low position. Call iw light in reach. Side rails up X2. Pulse ox on. NIBP on. cafeteria monitor on. Door closed. Noise minimized. Warm blanket given. Administered Medications: No medications were administered Medication: 13:16 VIS not applicable for this client. iw Outcome: 13:09 Discharge ordered by . ec2 13:16 Discharged to home ambulatory, iw 13:16 Condition: stable 13:16 Discharge instructions given to patient, Instructed on discharge instructions, follow up and referral plans. Demonstrated understanding of instructions, follow-up care, 13:16 Patient left the ED. iw Signatures: Dispatcher [employer] Leslie Chatman, Reg Reg Beryl Sibley, TRES JOSHUA iw Padmini Puga RN RN ld1 Negro Pleitez MD MD ec2
[2023-09-29 13:44] VITALS: BP 117/74; TEMP 98.9; O2SAT 97
--- NOTE | 2023-09-30 17:52 | EKG ---
Test Date: 2023-09-29 Test Time: 11:26:13 Wardrobe Stylist: WILD MEASUREMENT RESULTS: Intervals: Rate: 69 IL: 170 QRSD: 100 QT: 388 QTc: 415 Bowman: P: 37 IL: 170 QRS: 50 T: 16 INTERPRETIVE STATEMENTS: Sinus rhythm with occasional premature ventricular complexes Anterior infarct, age undetermined Abnormal ECG Compared to ECG 03/03/2023 07:48:29 No significant changes Electronically Signed On 09-30-23 17:50:31 [employer] by Brandin Lucas
== END ==
LOC: ER 10:15
DX: Z45.02 Encounter for adjustment and management of automatic implantable cardiac defibrillator (principal)
CPT/HCPCS: 36415; 71045; 80048; 84484; 85025; 93005; 99284

== ENCOUNTER 2024-04-22 20:21 | Emergency (ER) | payer OTHER, SELFPAY ==
--- NOTE | 2024-04-22 21:19 | RAD REPORT ---
EXAM DESCRIPTION: RAD - Chest Single View - 04/22/2024 9:04 pm CLINICAL HISTORY: CHEST PAIN Chest pain. COMPARISON: Chest Single View dated 09/29/2023; Chest Single View dated 03/03/2023; CHEST SINGLE VIEW dated 11/13/2009; CHEST SINGLE VIEW dated 04/13/2009 FINDINGS: Portable technique limits examination quality. The lungs are grossly clear. The heart is normal in size. No displaced fractures.Single lead pacer/ d efibrillator device present. IMPRESSION: No acute intrathoracic process suspected.
[2024-04-22 21:27] LABS: Absolute Eosinophils 0.1 K/uL (0-0.5); Absolute Lymphocytes (CBC) 1.8 K/uL (0.7-4.9); Absolute Monocytes 0.4 K/uL (0.1-1.3); Absolute Neutrophil 1.1 K/uL (1.8-8.0); Basophils % 0.7 % (0-1.3); Hematocrit 37.5 % (39.6-49.0); Hemoglobin 12.6 g/dL (13.6-17.9); Lymphocytes % 52.8 % (15.3-44.8); MCH 32.1 pg (27.0-35.0); MCHC 33.6 g/dL (32.0-36.0); MCV 95.8 fL (80-100); MPV 8.5 fL (7.6-11.3); Monocytes % 10.5 % (3.3-12.3); PT Prothrombin Time 13.8 SECONDS (9.4-12.5); Platelets 143 thou/uL (152-406); Protime INR 1.24; RBC Red Blood Cell Count 3.92 M/uL (4.33-5.43)
[2024-04-22 22:51] LABS: Albumin 3.8 g/dL (3.4-5.0); Albumin/Globulin Ratio 1.2 (1.1-1.8); Anion Gap 3.5 mEq/L (5.0-15.0); Bilirubin Direct 0.2 mg/dL (0-0.2); Bilirubin Indirect, Calculated 0.4 mg/dL (0.2-0.8); Bilirubin Total 0.6 mg/dL (0.2-1.0); Globulin 3.2 g/dL (2.3-3.5); Magnesium 2.1 mg/dL (1.6-2.4); Potassium 3.5 mEq/L (3.5-5.1); Troponin High Sensitivity 4.2 pg/mL (<58.9)
--- NOTE | 2024-04-22 23:14 | EDPHYS ---
Physician Documentation [facility] Name: Dennis Lugo Age: 53 yrs Sex: Male : 1970 Arrival Date: 04/22/2024 Time: 20:21 Bed 7 Private MD: ED Physician Julio César Lopez HPI: 04/22 20:29 This 53 yrs old Black Male presents to ER via Unassigned with complaints of sp4 DEFIBRILLATOR PAIN. 04/23 05:36 53-year-old male presents with complaint of pain at the site of his defibrillator. sp4 Denied any redness or signs of infection. Historical: - Allergies: 04/22 20:38 Morphine; jb4 - PMHx: 20:38 Congestive heart failure; defibrillator; Hypertensive disorder; mitral valve prolapse; jb4 - PSHx: 20:38 Defibrillator placement; jb4 - Immunization history:: Adult Immunizations up to date. - Infectious Disease History:: Denies. - Social history:: Smoking status: Patient denies any tobacco usage or history of. - Family history:: not pertinent. ROS: 04/23 05:36 Constitutional: Negative for fever, chills, and weight loss, left chest wall pain at sp4 the site of defibrillator All other systems are negative, Exam: 05:36 Constitutional: This is a well developed, well nourished patient who is awake, alert, sp4 and in no acute distress. Head/Face: Normocephalic, atraumatic. Eyes: Pupils equal round and reactive to light, extra-ocular motions intact. Lids and lashes normal. Conjunctiva and sclera are not injected. Cornea within normal limits. Periorbital areas with no swelling, redness, or edema. ENT: Nares patent. No nasal discharge, no septal abnormalities noted. Tympanic membranes are normal and external auditory canals are clear. Oropharynx with no redness, swelling, or masses, exudates, or evidence of obstruction, uvula midline. Mucous membranes moist. Neck: Trachea midline, no thyromegaly or masses palpated, and no cervical lymphadenopathy. Supple, full range of motion without nuchal rigidity, or vertebral point tenderness. Chest/axilla: Normal chest wall appearance and motion. Nontender with no deformity. No lesions are appreciated. Cardiovascular: Regular rate and rhythm with a normal S1 and S2. No gallops, murmurs, or rubs. Normal PMI, no JVD. No pulse deficits. Respiratory: Lungs have equal breath sounds bilaterally, clear to auscultation and percussion. No rales, rhonchi or wheezes noted. No increased work of breathing, no retractions or nasal flaring. Abdomen/GI: Soft, with normal bowel sounds. No distension or tympany. No guarding or rebound. No evidence of tenderness throughout. Back: No spinal tenderness. No costovertebral tenderness. Skin: Warm, dry with normal turgor. Normal color with no rashes, no lesions, and no evidence of cellulitis. MS/ Extremity: Pulses equal, no cyanosis. Neurovascular intact. Full, normal range of motion. Neuro: Awake and alert, GCS 15, oriented to person, place, time, and situation. Cranial nerves II-XII grossly intact. Motor strength 5/5 in all extremities. Sensory grossly intact. Psych: Awake, alert, with orientation to person, place and time. Behavior, mood, and affect are within normal limits 05:36 ECG was reviewed by the Attending Physician. Normal sinus rhythm sp4 Vital Signs: 04/22 20:34 BP 119 / 77; Pulse 80; Resp 16; Temp 98.8(O); Pulse Ox 99% on R/A; Weight 74.84 kg (R); jb4 Height 5 ft. 11 in. (R); Pain 3/10; 20:47 BP 109 / 74; Pulse 85; Resp 16; Pulse Ox 95% on R/A; pc2 22:19 BP 115 / 79; Pulse 72; Resp 16; Pulse Ox 100% on R/A; pc2 23:28 BP 112 / 71; Pulse 82; Resp 16; Pulse Ox 100% on R/A; pc2 20:34 Body Mass Index 23.01 (74.84 kg, 180.34 cm) jb4 20:34 Pain Scale: Adult jb4 Sayre Coma Score: 04/23 05:36 Eye Response: spontaneous(4). Motor Response: obeys commands(6). Verbal Response: sp4 oriented(5). Total: 15. MDM: 04/22 20:30 Patient medically screened. sp4 04/23 05:36 Data reviewed: vital signs, nurses notes. ED course: EXAM DESCRIPTION: RAD - Chest sp4 Single View - 04/22/2024 9:04 pm CLINICAL HISTORY: CHEST PAIN Chest pain. COMPARISON: Chest Single View dated 09/29/2023; Chest Single View dated 03/03/2023; CHEST SINGLE VIEW dated 11/13/2009; CHEST SINGLE VIEW dated 04/13/2009 FINDINGS: Portable technique limits examination quality. The lungs are grossly clear. The heart is normal in size. No displaced fractures.Single lead pacer/ defibrillator device present. IMPRESSION: No acute intrathoracic process suspected. . 04/22 20:30 Order name: Basic Metabolic Panel; Complete Time: 23:09 sp4 04/22 20:30 Order name: CBC with Diff; Complete Time: 22:16 sp4 04/22 20:30 Order name: LFT's; Complete Time: 23: sp4 04/22 20:30 Order name: Magnesium; Complete Time: 23: sp4 04/22 20:30 Order name: NT PRO-BNP; Complete Time: 23: sp4 04/22 20:30 Order name: PT-INR; Complete Time: 22:16 sp4 04/22 20:30 Order name: Troponin HS; Complete Time: 23:09 sp4 04/22 20:30 Order name: CK; Complete Time: 23:09 sp4 04/22 20:30 Order name: XRAY Chest (1 view); Complete Time: 22:16 sp4 04/22 20:30 Order name: Cardiac monitoring; Complete Time: 20:47 sp4 04/22 20:30 Order name: EKG - Nurse/Tech; Complete Time: 21:01 sp4 04/22 20:30 Order name: IV Saline Lock; Complete Time: 20:47 sp4 04/22 20:30 Order name: Labs collected and sent; Complete Time: 20:47 sp4 04/22 20:30 Order name: O2 Per Protocol; Complete Time: 20:47 sp4 04/22 20:30 Order name: O2 Sat Monitoring; Complete Time: 20:47 sp4 EC:36 Rate is 82 beats/min. Rhythm is regular, Normal Sinus Rhythm. QRS [place] is Normal. TN sp4 interval is normal. QRS interval is normal. QT interval is normal. No Q waves. T waves are Normal. No ST changes noted. Clinical impression: No evidence of ischemia. Interpreted by me. Reviewed by me. Administered Medications: No medications were administered Disposition Summary: 04/22/24 23:14 Discharge Ordered Notes: Location: Home sp4 Problem: new sp4 Symptoms: have improved sp4 Condition: Stable sp4 Diagnosis - Acute chest wall tenderness around defibrillator site, noncardiac chest wall pain sp4 Followup: sp4 - With: Jerri Murcia MD - When: 7 - 10 days - Reason: Recheck today's complaints Discharge Instructions: - Discharge Summary Sheet sp4 - Medical Screening Exam sp4 Forms: - Patient Portal Instructions sp4 Signatures: Dispatcher [employer] EDJoe Kumar RN RN jb4 Julio César Lopez MD MD sp4 Corrections: (The following items were deleted from the chart) 04/22 20:30 20:30 Chest Single View+RAD.RAD.[email or web address] ordered. EDMS EDMS
--- NOTE | 2024-04-22 23:14 | ER ---
Nurse's Notes [facility] Name: Dennis Lugo Age: 53 yrs Sex: Male : 1970 Arrival Date: 04/22/2024 Time: 20:21 Bed 7 Private MD: Diagnosis: Acute chest wall tenderness around defibrillator site, noncardiac chest wall pain Presentation: 04/22 20:34 Chief complaint: Patient states: Around Friday I started having a tightness around my jb4 defibrillator. It is worse when I use my left arm and I did bump into a cabinet, so I just wanted to get it checked. Coronavirus screen: At this time, the client does not indicate any symptoms associated with coronavirus-19. Ebola Screen: No symptoms or risks identified at this time. Initial Sepsis Screen: Does the patient meet any 2 criteria? No. Patient's initial sepsis screen is negative. Does the patient have a suspected source of infection? No. Patient's initial sepsis screen is negative. Risk Assessment: Do you want to hurt yourself or someone else? Patient reports no desire to harm self or others. Onset of symptoms was April 22, 2024. Transition of care: patient was not received from another setting of care. 20:34 Method Of Arrival: Ambulatory jb4 20:34 Acuity: GHULAM 3 jb4 Historical: - Allergies: 20:38 Morphine; jb4 - PMHx: 20:38 Congestive heart failure; defibrillator; Hypertensive disorder; mitral valve prolapse; jb4 - PSHx: 20:38 Defibrillator placement; jb4 - Immunization history:: Adult Immunizations up to date. - Infectious Disease History:: Denies. - Social history:: Smoking status: Patient denies any tobacco usage or history of. - Family history:: not pertinent. Screenin:48 [facility] ED Fall Risk Assessment (Adult) History of falling in the last 3 months, pc2 including since admission No falls in past 3 months (0 pts) Confusion or Disorientation No (0 pts) Intoxicated or Sedated No (0 pts) Impaired Gait No (0 pts) Mobility Assist Device Used No (0 pt) Altered Elimination No (0 pt) Score/Fall Risk Level 0 - 2 = Low Risk Oriented to surroundings, Maintained a safe environment, Hourly rounding (assess needs \T\ fall precautionary measures) done. Abuse screen: Denies threats or abuse. Denies injuries from another. Nutritional screening: No deficits noted. Tuberculosis screening: No symptoms or risk factors identified. Assessment: 20:48 General: Appears in no apparent distress. comfortable, slender, well groomed, well pc2 developed, Behavior is calm, cooperative, appropriate for age. Pain: Complains of pain in chest Pain currently is 2 out of 10 on a pain scale. Quality of pain is described as pain around defibrillator. denies any recent shocks, just wants it checked out Pain began 2-3 days ago. Neuro: Liu Agitation-Sedation Scale (RASS): 0 - Alert and Calm Level of Consciousness is awake, alert, obeys commands, Oriented to person, place, time, situation. Cardiovascular: Reports chest pain, Denies diaphoresis, fatigue, lightheadedness, nausea, palpitations, shortness of breath, syncope, vomiting. Respiratory: Airway is patent Respiratory effort is even, unlabored, Respiratory pattern is regular, symmetrical. GI: No signs and/or symptoms were reported involving the gastrointestinal system. : No signs and/or symptoms were reported regarding the genitourinary system. EENT: No signs and/or symptoms were reported regarding the EENT system. Derm: No signs and/or symptoms reported regarding the dermatologic system. Musculoskeletal: No signs and/or symptoms reported regarding the musculoskeletal system. 22:19 Reassessment: Patient appears in no apparent distress at this time. Patient and/or pc2 family updated on plan of care and expected duration. Pain level reassessed. Patient is alert, oriented x 3, equal unlabored respirations, skin warm/dry/pink. Patient states feeling better. Vital Signs: 20:34 BP 119 / 77; Pulse 80; Resp 16; Temp 98.8(O); Pulse Ox 99% on R/A; Weight 74.84 kg (R); jb4 Height 5 ft. 11 in. (R); Pain 3/10; 20:47 BP 109 / 74; Pulse 85; Resp 16; Pulse Ox 95% on R/A; pc2 22:19 BP 115 / 79; Pulse 72; Resp 16; Pulse Ox 100% on R/A; pc2 23:28 BP 112 / 71; Pulse 82; Resp 16; Pulse Ox 100% on R/A; pc2 20:34 Body Mass Index 23.01 (74.84 kg, 180.34 cm) jb4 20:34 Pain Scale: Adult jb4 Yeso Coma Score: 04/23 05:36 Eye Response: spontaneous(4). Motor Response: obeys commands(6). Verbal Response: sp4 oriented(5). Total: 15. ED Course: 04/22 20:24 Patient arrived in ED. ld1 20:29 Julio César Lopez MD is Attending Physician. sp4 20:38 Triage completed. jb4 20:38 Arm band placed on right wrist. jb4 20:40 Magdalena Farrar, RN is Primary Nurse. pc2 20:45 Inserted saline lock: 20 gauge in right antecubital area, using aseptic technique. pc2 Blood collected. Flushed with 10 mL NS. 20:47 Basic Metabolic Panel Sent. pc2 20:47 CBC with Diff Sent. pc2 20:47 LFT's Sent. pc2 20:47 Magnesium Sent. pc2 20:47 NT PRO-BNP Sent. pc2 20:47 PT-INR Sent. pc2 20:47 Troponin HS Sent. pc2 20:50 No provider procedures requiring assistance completed. pc2 20:51 Patient has correct armband on for positive identification. Bed in low position. Call pc2 light in reach. Side rails up X 1. Provided Education on: POC and time frame. 21:06 XRAY Chest (1 view) In Process Unspecified. EDMS 23:14 Jerri Murcia MD is Referral Physician. sp4 23:27 IV discontinued, intact, bleeding controlled, No redness/swelling at site. Pressure pc2 dressing applied. Administered Medications: No medications were administered Medication: 20:51 VIS not applicable for this client. pc2 Outcome: 23:14 Discharge ordered by . sp4 23:27 Discharged to home ambulatory, pc2 23:27 Condition: stable 23:27 Discharge instructions given to patient, Instructed on discharge instructions, follow up and referral plans. Demonstrated understanding of instructions, follow-up care, 23:30 Patient left the ED. pc2 Signatures: Dispatcher [employer] EDMS Joe Chou, TRES RN jb4 Padmini Puga RN RN ld1 Julio César Lopez MD MD sp4 Magdalena Farrar, RN RN pc2
[2024-04-22 23:44] VITALS: TEMP 98.8
[2024-04-22 23:47] VITALS: O2SAT 100
[2024-04-22 23:49] VITALS: BP 112/71
--- OUTSIDE RECORDS SUMMARY | 2024-04-26 08:08 | XMS REPORT | Continuity of Care Document ---
Author Name Unknown Address [address] [facility] [address] [place] [address] [facility] thconnect Address [address] [facility] [address] [place] [address] Care Team Providers Care Swedish Masseuse Name Role Phone Brian Velazquez Primary Care Physician Carleen Lemus DO Attending Clinician [phone] CARLEEN LEMUS Attending Clinician Unavailab le Doctor Unassigned, [place] Attending Clinician U navailable Raulito DENNISON Attending Clinician Unavailable Raulito Cota Attending Clinician [phone] SARAH CHAVIS Attending Clinician Unavailable Sarah Chavis MD Attending Clinician [phone] CHET GAONA Attending Clinician Unavailable Raulito DENNISON Admitting Clinician Unavailable CHET GAONA Admitting Clinician Unavailable Payers Payer Name Policy Type Policy Number Effective Date Expirati on Date Source MEDICAID SSI PENDING PENDING 2021 00:00:00 Problems Condition Name Condition Details Condition Category Status Onset Date Resolution Date Last Treatment Date Treating Clinician Comments Source No known active problems No known active problems Disease [facility] Allergies, Adverse Reactions, Alerts Allergy Name Allergy Type Status Severity Reaction(s) Onset Date Inactive Date Treating Clinician Comments Source Morphine and Related - CLASS Propensi ty to adverse reaction to drug Active 9-12 00:00: 00 Augie Sherman Morphine Propensi ty to adverse reaction to drug Inactiv e 4-12 00:00: 00 Augie Sherman MORPHINE DRUG INGREDI Active HYPERTENSION 2017-09 0 00:00: 00 [facility] Morphine Propensi ty to adverse reaction s Active Hypertension 2017-09 0 00:00: 00 [facility] Social History Social Habit Start Date Stop Date Quantity Comments Source Exposure to SARS-CoV-2 (event) 2022-09-13 00:00:00 2022-09-23 16:06:00 Not sure [facility] Sex Assigned At 1970 00:00:00 1970 00:00:00 [facility] Smoking Status Start Date Stop Date Source Tobacco smoking consumption unknown [facility] Medications Ordered Medication Name Filled Medication Name Start Date Stop Date Current Medication? Ordering Clinician Indication Dosage Frequency Signature (SIG) Comments Components Source spironolact one 25 mg tablet - 00:00: 00 Yes 1mg Augie Sherman carvedilol 25 mg tablet 0 5-29 00:00: 00 Yes 1mg Augie Sherman atorvastati n 10 mg tablet 0 5-29 00:00: 00 Yes 1mg Augie Sherman CARVEDILOL 25MG 0 2-05 00:00: 00 Yes Augie Sherman TAKE 1 TABLET BY MOUTH AT BEDTIME 0 2-05 00:00: 00 Yes 10 Augie Sherman ENTRESTO 97-103MG 2023-0 1-18 00:00: 00 Yes Augie Sherman SPIRONOLACT 25MG 2022-09 2-19 00:00: 00 Yes Augie Sherman TAKE 1 TABLET DAILY. 2022-09 0-28 00:00: 00 05-13 00:00 :00 No 10 Augie Sherman ENTRESTO 97-103MG 2022-09 0-02 00:00: 00 Yes Augie Sherman TAKE ONE TABLET BY MOUTH ONCE A DAY 0 9-18 00:00: 00 01-18 00:00 :00 No 25 Augie Sherman SPIRONOLACT 25MG 0 9-17 00:00: 00 Yes [id number] Augie Sherman IBUPROFEN 600MG 0 8-18 00:00: 00 Yes Augie Sherman TAKE 1 TABLET BID NEEDED 0 8-17 00:00: 00 01-18 00:00 :00 No 600 Augie Sherman CARVEDILOL 25MG 7-19 00:00: 00 Yes [id number] Augie Sherman ENTRESTO 97-103MG 6- 00:00: 00 Yes Augie Sherman SPIRONOLACT 25MG - 00:00: 00 Yes Augie Sherman TAKE 1 TABLET BY MOUTH EVERY DAY 0 - 00:00: 00 Yes Augie Sherman TAKE ONE TABLET BY MOUTH ONCE A DAY 0 -20 00:00: 00 01-18 00:00 :00 No 25 Augie Sherman TAKE 1 TABLET DAILY. -20 00:00: 00 01-18 00:00 :00 No 10 Augie Sherman TAKE ONE TABLET BY MOUTH ONCE A DAY 0 6-16 00:00: 00 01-18 00:00 :00 No 25 Augie Sherman INSTILL 4 DROPS IN THE AFFECTED EAR(S) TWICE DAILY 3-04 00:00: 00 01-18 00:00 :00 No 301 Augie Sherman Dose Unknown 2021-09 2-14 00:00: 00 No Dose Unknown 2021-09 2-14 00:00: 00 No Dose Unknown 2021-09 2-14 00:00: 00 Yes Augie Sherman TAKE ONE TABLET BY MOUTH ONCE A DAY 2021-09 2-14 00:00: 00 01-18 00:00 :00 No 25 Augie Sherman methylpredn isolone sod succ (SOLU-MEDRO L) injection 125 mg 5-04 02:15: 00 01-09 01:20 :00 No 125mg 125 mg, Intramuscu lar, ONCE, 1 dose, On Fri01/08/22 at 2115, [facility] Dose Unknown 2-0 4-16 00:00: 00 No carvedilol 25 mg tablet 2-0 4-16 00:00: 00 No 1mg Dose Unknown 2022-0 4-16 00:00: 00 No Dose Unknown 2-0 4-16 00:00: 00 No Entresto 24 mg-26 mg tablet 2-0 4-16 00:00: 00 No 1mg carvedilol 25 mg tablet 2-0 4-16 00:00: 00 No 1mg Entresto 24 mg-26 mg tablet 2-0 4-16 00:00: 00 Yes 1mg Augie Sherman carvedilol 25 mg tablet 2021-0 4-16 00:00: 00 Yes 1mg Augie Sherman Dose Unknown 2022-0 3-15 00:00: 00 No Dose Unknown 2022-0 3-15 00:00: 00 No Dose Unknown 2022-0 3-15 00:00: 00 No Dose Unknown 2022-0 3-15 00:00: 00 No Dose Unknown 2022-0 3-15 00:00: 00 No Dose Unknown 2022-0 3-15 00:00: 00 No Dose Unknown 2022-0 3-15 00:00: 00 No Dose Unknown 2022-0 3-15 00:00: 00 No Dose Unknown 2022-0 3-15 00:00: 00 No Dose Unknown 2022-0 3-15 00:00: 00 Yes Augie Sherman Dose Unknown 2022-0 3-15 00:00: 00 Yes Augie Sherman Dose Unknown 2022-0 3-15 00:00: 00 Yes Augie Sherman amoxicillin 500 mg capsule 2020-1 2-24 00:00: 00 Yes [id number] 500mg Take 1 capsule by mouth 3 (three) times daily. [facility] benzonatate 100 mg capsule 2020-1 2-24 00:00: 00 Yes [id number] 100mg Take 1 capsule by mouth 3 (three) times daily as needed for Cough. [facility] carvedilol 25 mg tablet 2020-0 9-15 00:00: 00 No 1mg Dose Unknown 0 -15 00:00: 00 No Dose Unknown 0 9-15 00:00: 00 No Dose Unknown 0 15 00:00: 00 No carvedilol 25 mg tablet 0 9-15 00:00: 00 No 1mg Entresto 24 mg-26 mg tablet 0 9-15 00:00: 00 No 1mg carvedilol 25 mg tablet 0 9-15 00:00: 00 Yes 1mg Augie Sherman Entresto 24 mg-26 mg tablet 0 15 00:00: 00 Yes 1mg Augie Sherman Dose Unknown 14 00:00: 00 No cyclobenzap rine 10 mg tablet 0 14 00:00: 00 No 1mg Dose Unknown 14 00:00: 00 No Dose Unknown 14 00:00: 00 No prednisone 20 mg tablet 0 -14 00:00: 00 No 1mg cyclobenzap rine 10 mg tablet 0 -14 00:00: 00 No 1mg prednisone 20 mg tablet 0 14 00:00: 00 Yes 1mg Augie Sherman cyclobenzap rine 10 mg tablet 0 7-14 00:00: 00 Yes 1mg Augie Sherman carvedilol 25 mg tablet 0 3-18 00:00: 00 No 1mg carvedilol 25 mg tablet 0 3-18 00:00: 00 No 1mg carvedilol 25 mg tablet 0 3-18 00:00: 00 No 1mg carvedilol 25 mg tablet 0 3-18 00:00: 00 Yes 1mg Augie Sherman carvedilol 25 mg tablet 2020-0 2-04 00:00: 00 No 1mg carvedilol 25 mg tablet 0 2-04 00:00: 00 No 1mg carvedilol 25 mg tablet 0 2-04 00:00: 00 No 1mg carvedilol 25 mg tablet 2020-0 2-04 00:00: 00 Yes 1mg Augie Sherman lisinopril 20 mg tablet 2020-1 2-28 00:00: 00 No 1mg carvedilol 25 mg tablet 2019-09 00:00: 00 No 1mg omeprazole 40 mg capsule,del ayed release 2019-09 00:00: 00 No 1mg lisinopril 20 mg tablet 2019-09 00:00: 00 No 1mg lisinopril 20 mg tablet 2019-09 00:00: 00 No 1mg carvedilol 25 mg tablet 2019-09 00:00: 00 No 1mg Dose Unknown 2019-09 00:00: 00 No carvedilol 25 mg tablet 2019-09 00:00: 00 No 1mg omeprazole 40 mg capsule,del ayed release 2019-09 00:00: 00 No 1mg lisinopril 20 mg tablet 2019-09 00:00: 00 Yes 1mg Augie Sherman carvedilol 25 mg tablet 2019-09 00:00: 00 Yes 1mg Augie Sherman omeprazole 40 mg capsule,del ayed release 2019-09 00:00: 00 Yes 1mg Augie Sherman lisinopril 20 mg tablet 2019-09 00:00: 00 [...] lisinopril 20 mg tablet 2019-09 00:00: 00 Yes 1mg Augie Sherman carvedilol 25 mg tablet 2019-09 00:00: 00 Yes 1mg Augie Sherman omeprazole 40 mg capsule,del ayed release 2019-1 1-13 00:00: 00 Yes 1mg Augie Sherman omeprazole 40 mg capsule,del ayed release 2019-1 0-13 00:00: 00 Yes 1mg Augie Sherman omeprazole 40 mg capsule,del ayed release 2019-1 0-13 00:00: 00 No 1mg omeprazole 40 mg capsule,del ayed release 2019-1 0-13 00:00: 00 No 1mg omeprazole 40 mg capsule,del ayed release 2019-1 0-13 00:00: 00 No 1mg lisinopril 20 mg tablet 2019-0 7-08 00:00: 00 Yes 1mg Augie Sherman carvedilol 25 mg tablet 2019-0 7-08 00:00: 00 Yes 1mg Augie Sherman lisinopril 20 mg tablet 2019-0 7-08 00:00: 00 No 1mg carvedilol 25 mg tablet 2019-0 7-08 00:00: 00 No 1mg lisinopril 20 mg tablet 2019-0 7-08 00:00: 00 No 1mg carvedilol 25 mg tablet 2019-0 7-08 00:00: 00 No 1mg lisinopril 20 mg tablet 2019-0 7-08 00:00: 00 No 1mg carvedilol 25 mg tablet 2019-0 7-08 00:00: 00 No 1mg lisinopril 20 mg tablet 2019-0 5-27 00:00: 00 Yes 1mg Augie Sherman carvedilol 25 mg tablet 2019-0 5-27 00:00: 00 Yes 1mg Augie Sherman lisinopril 20 mg tablet 2019-0 5-27 00:00: 00 No 1mg carvedilol 25 mg tablet 2019-0 5-27 00:00: 00 No 1mg lisinopril 20 mg tablet 2019-0 5-27 00:00: 00 No 1mg carvedilol 25 mg tablet 2019-0 5-27 00:00: 00 No 1mg lisinopril 20 mg tablet 2019-0 5-27 00:00: 00 No 1mg carvedilol 25 mg tablet 2019-0 5-27 00:00: 00 No 1mg carvedilol 25 mg tablet 2019-0 3-24 00:00: 00 Yes 1mg Augie Sherman lisinopril 20 mg tablet 11-29 00:00: 00 Yes 1mg Augie Sherman carvedilol 25 mg tablet 11-29 00:00: 00 No 1mg lisinopril 20 mg tablet 11-29 00:00: 00 No 1mg carvedilol 25 mg tablet 11-29 00:00: 00 No 1mg lisinopril 20 mg tablet 11-29 00:00: 00 No 1mg carvedilol 25 mg tablet 11-29 00:00: 00 No 1mg lisinopril 20 mg tablet 11-29 00:00: 00 No 1mg carvedilol 25 mg tablet 2018-09 00:00: 00 Yes [id number] 25mg Take 1 tablet by mouth 2 (two) times daily with meals. [facility] lisinopril 30 mg tablet 2018-09 00:00: 00 Yes [id number] 30mg Take 1 tablet by mouth daily. [facility] hydrochloro thiazide 25 mg tablet 02-23 00:00: 00 Yes 1mg Augie Sherman carvedilol 25 mg tablet 02-23 00:00: 00 Yes 1mg Augie Sherman lisinopril 20 mg tablet 02-23 00:00: 00 Yes 1mg Augie Sherman hydrochloro thiazide 25 mg tablet 02-23 00:00: [...] thiazide 25 mg tablet 01-14 00:00: 00 Yes 1mg Augie Sherman carvedilol 25 mg tablet 01-14 00:00: 00 Yes 1mg Augie Sherman lisinopril 20 mg tablet 01-14 00:00: 00 Yes 1mg Augie Sherman hydrochloro thiazide 25 mg tablet 01-14 00:00: [...] mg tablet 01-14 00:00: 00 No 1mg pantoprazol e 40 mg tablet,wm yed release 2017-09 00:00: 00 Yes 1mg Augie Sherman metronidazo le 500 mg tablet 2017-09 00:00: 00 Yes 1mg Augie Sherman pantoprazol e 40 mg tablet,wm yed release [...] thiazide 25 mg tablet 2017-09 00:00: 00 Yes 1mg Augie Sherman carvedilol 25 mg tablet 2017-09 00:00: 00 Yes 1mg Augie Sherman lisinopril 20 mg tablet 2017-09 00:00: 00 Yes 1mg Augie Sherman cyclobenzap rine 10 mg tablet 2017-09 00:00: 00 Yes 1mg Augie Sherman ciprofloxac in 500 mg tablet 2017-09 00:00: 00 Yes 1mg Augie Sherman dicyclomine 20 mg tablet 2017-09 00:00: 00 Yes 1mg Augie Sherman DOK 100 mg capsule 2017-09 00:00: 00 Yes 1mg Augie Sherman hydrochloro thiazide 25 mg tablet 2017-09 00:00: [...] tablet by mouth 4 (four) times daily. [facility] atorvastati n calcium (ATORVASTAT IN ORAL) 2017-09 11:11: 57 Yes Take by mouth. [facility] aspirin 81 mg chewable tablet 2017-09 11:08: 17 Yes 81mg Take 81 mg by mouth daily. [facility] carvedilol (COREG) 25 mg tablet 2017-09 11:08: 05 Yes 25mg Take 25 mg by mouth 2 (two) times daily with meals. [facility] lisinopril 30 mg tablet 2017-09 11:08: 05 Yes 30mg Take 30 mg by mouth daily. [facility] HYDROCHLORO THIAZIDE ORAL 2017-09 11:08: 05 Yes 25mg Take 25 mg by mouth. [facility] SERTraline (ZOLOFT) 50 mg tablet 2017-09 11:08: 05 Yes 50mg Take 50 mg by mouth daily. [facility] risperiDONE (RISPERDAL M-TAB) 2 mg M-Tab 2017-09 11:08: 05 Yes 2mg Take 2 mg by mouth at bedtime. [facility] lisinopril 20 mg tablet 05-05 00:00: 00 Yes 1mg Augie Sherman carvedilol 25 mg tablet 05-05 00:00: 00 Yes 1mg Augie Sherman hydrochloro thiazide 25 mg tablet 05-05 00:00: 00 Yes 1mg Augie Sherman lisinopril 20 mg tablet 05-05 00:00: 00 [...] Systolic blood pressure 2022-09-23 22:08:00 138 mm[Hg] [facility] Diastolic blood pressure 2022-09-23 22:08:00 78 mm[Hg] [facility] Heart rate 2022-09-23 22:08:00 78 /min [facility] Body temperature 2022-09-23 22:08:00 36.61 Saige [facility] Respiratory rate 2022-09-23 22:08:00 18 /min [facility] Body height 2022-09-23 22:08:00 177.8 cm [facility] Body weight 2022-09-23 22:08:00 75.751 kg [facility] BMI 2022-09-23 22:08:00 23.96 kg/m2 [facility] Oxygen saturation in Arterial blood by Pulse oximetry 2022-09-23 22:08:00 99 /min [facility] Systolic blood pressure 2022-01-09 00:01:00 110 mm[Hg] [facility] Diastolic blood pressure 2022-01-09 00:01:00 77 mm[Hg] [facility] Heart rate 2022-01-09 00:01:00 77 /min [facility] Respiratory rate 2022-01-09 00:01:00 14 /min [facility] Oxygen saturation in Arterial blood by Pulse oximetry 2022-01-09 00:01:00 98 /min [facility] Body temperature 2022-01-08 22:08:00 36.61 Saige [facility] Body height 2022-01-08 22:08:00 180.3 cm [facility] Body weight 2022-01-08 22:08:00 76.204 kg [facility] BMI 2022-01-08 22:08:00 23.43 kg/m2 [facility] Systolic blood pressure 2021-08-31 08:17:00 132 mm[Hg] [facility] Diastolic blood pressure 2021-08-31 08:17:00 10 mm[Hg] [facility] Heart rate 2021-08-31 08:17:00 100 /min [facility] Body temperature 2021-08-31 08:17:00 37 Saige [facility] Respiratory rate 2021-08-31 08:17:00 20 /min [facility] Body weight 2021-08-31 08:17:00 74.844 kg [facility] BMI 2021-08-31 08:17:00 23.01 kg/m2 [facility] Oxygen saturation in Arterial blood by Pulse oximetry 2021-08-31 08:17:00 99 /min [facility] BP Systolic 2024-02-04 16:23:00 116 mm[Hg] Step [address] BP Diastolic 2024-02-04 16:23:00 74 mm[Hg] [address] Weight Measured 2024-02-04 16:23:[address] Height Measured 2024-02-04 16:23:[address] Body Temperature 2024-02-04 16:23:[address] Heart Rate 2024-02-04 16:23:00 67.00 /min [facility] en [address] Respiratory Rate 2024-02-04 16:23:00 18.00 /min Augie F [address] BP Systolic 2023-10-13 15:12:00 125 mm[Hg] Step [address] BP Diastolic 2023-10-13 15:12:00 72 mm[Hg] [address] Weight Measured 2023-10-13 15:12:[address] Height Measured 2023-10-13 15:12:[address] Body Temperature 2023-10-13 15:12:[address] Heart Rate 2023-10-13 15:12:00 68.00 /min [facility] [facility] [address] Respiratory Rate 2023-10-13 15:12:00 18.00 /min Augie F [address] BP Systolic 2023-07-05 13:43:00 120 mm[Hg] Step [address] BP Diastolic 2023-07-05 13:43:00 80 mm[Hg] [address] Weight Measured 2023-07-05 13:43:[address] Height Measured 2023-07-05 13:43:[address] Body Temperature 2023-07-05 13:43:[address] Heart Rate 2023-07-05 13:43:00 76.00 /min [facility] Respiratory Rate 2023-07-05 13:43:00 19.00 /min Augie F [address] BP Systolic 2023-04-24 16:39:00 105 mm[Hg] Step [address] BP Diastolic 2023-04-24 16:39:00 65 mm[Hg] [address] Weight Measured 2023-04-24 16:39:[address] Height Measured 2023-04-24 16:39:[address] Body Temperature 2023-04-24 16:39:[address] Heart Rate 2023-04-24 16:39:00 75.00 /min [address] Respiratory Rate 2023-04-24 16:39:[address] BP Systolic 2023-02-25 08:26:00 121 mm[Hg] Step [address] BP Diastolic 2023-02-25 08:26:00 81 mm[Hg] [address] Weight Measured 2023-02-25 08:26:[address] Height Measured 2023-02-25 08:26:[address] Body Temperature 2023-02-25 08:26:[address] Heart Rate 2023-02-25 08:26:00 89.00 /min [facility] Respiratory Rate 2023-02-25 08:26:[address] BP Systolic 2022-11-09 10:02:00 105 mm[Hg] Step [address] BP Diastolic 2022-11-09 10:02:00 66 mm[Hg] [address] Weight Measured 2022-11-09 10:02:[address] Height Measured 2022-11-09 10:02:[address] Body Temperature 2022-11-09 10:02:[address] Heart Rate 2022-11-09 10:02:00 68.00 /min [address] Respiratory Rate 2022-11-09 10:02:[address] BP Systolic 2022-08-21 15:29:00 101 mm[Hg] Step [address] BP Diastolic 2022-08-21 15:29:00 63 mm[Hg] [address] Weight Measured 2022-08-21 15:29:[address] Height Measured 2022-08-21 15:29:[address] Body Temperature 2022-08-21 15:29:[address] Heart Rate 2022-08-21 15:29:00 84.00 /min [address] Respiratory Rate 2022-08-21 15:29:00 24.00 /min [address]ie F [address] BP Systolic 2022-05-20 13:30:00 119 mm[Hg] Step hen [address] BP Diastolic 2022-05-20 13:30:00 79 mm[Hg] [address] phen [address] Weight Measured 2022-05-20 13:30:[address] Height Measured 2022-05-20 13:30:[address] Body Temperature 2022-05-20 13:30:[address] Heart Rate 2022-05-20 13:30:00 78.00 /min [address] Respiratory Rate 2022-05-20 13:30:00 18.00 /min [address]ie F [address] BP Systolic 2022-05-01 14:40:00 125 mm[Hg] Step [address] BP Diastolic 2022-05-01 14:40:00 76 mm[Hg] [address] Weight Measured 2022-05-01 14:40:[address] Height Measured 2022-05-01 14:40:[address] Body Temperature 2022-05-01 14:40:[address] Heart Rate 2022-05-01 14:40:00 81.00 /min [address] Respiratory Rate 2022-05-01 14:40:[address] BP Systolic 2021-12-22 13:12:00 119 mm[Hg] Step [address] BP Diastolic 2021-12-22 13:12:00 82 mm[Hg] [address] Weight Measured 2021-12-22 13:12:[address] Height Measured 2021-12-22 13:12:00 72.00 inches Augie Asa Sherman Body Temperature 2021-12-22 13:12:[address] Heart Rate 2021-12-22 13:12:00 83.00 /min [facility] [facility] [address] Respiratory Rate 2021-12-22 13:12:00 Augiemilena Sherman BP Systolic 2021-06-12 17:07:00 125 mm[Hg] BP [...] DIAGNOSIS AND TREATMENT 2022-09-23 22:00:55 Doctor Unassigned, [place] [facility] REFERRAL- REQUEST/RESPONSE 2022-05-11 05:01:00 Doctor Unassigned, [place] [facility] EKG-12 LEAD 2022-01-09 01:08:24 Raulito Dennison [facility] XR CHEST 1 VW 2022-01-08 22:35:00 Raulito Dennison [facility] CONSENT/REFUSAL FOR DIAGNOSIS AND TREATMENT 2022-01-08 22:03:37 Doctor Unassigned, [place] [facility] RAPID STREP SCREEN FOR GROUP A 2021-08-31 08:41:00 Sarah Chavis [facility] COVID-19 (ID NOW RAPID TESTING) 2021-08-31 08:41:00 Sarah Chavis [facility] NOTICE OF PRIVACY PRACTICES 2021-08-31 07:59:25 Doctor Unassigned, [place] [facility] CONSENT/REFUSAL FOR DIAGNOSIS AND TREATMENT 2021-08-31 07:58:09 Doctor Unassigned, [place] [facility] Plan of Care Planned Activity Planned Date Details Comments Source Goal Plan of Care Note [code = 81506-4] Goal Plan of Care Note [code = 26306-4] Goal Plan of Care Note [code = 27643-2] Goal Plan of Care Note [code = 53217-9] Goal Plan of Care Note [code = 94120-1] Goal Plan of Care Note [code = 24232-9] Goal Plan of Care Note [code = 27596-1] Goal Plan of Care Note [code = 86637-8] Goal Plan of Care Note [code = 21609-0] Goal Plan of Care Note [code = 36150-4] Goal Plan of Care Note [code = 50837-5] Goal Plan of Care Note [code = 43568-6] Goal Plan of Care Note [code = 74023-9] Goal Plan of Care Note [code = 00957-1] Goal Plan of Care Note [code = 25955-3] Goal Plan of Care Note [code = 10916-8] Goal Plan of Care Note [code = 18832-8] Goal Plan of Care Note [code = 07784-1] Goal Plan of Care Note [code = 19907-0] Goal Plan of Care Note [code = 74304-4] Goal Plan of Care Note [code = 11889-7] Goal Plan of Care Note [code = 94174-9] Goal Plan of Care Note [code = 84220-7] Goal Plan of Care Note [code = 61320-6] Goal Plan of Care Note [code = 42165-1] Goal Plan of Care Note [code = 63769-7] Goal Plan of Care Note [code = 81748-6] Goal Plan of Care Note [code = 63734-7] Goal Plan of Care Note [code = 10431-6] Goal Plan of Care Note [code = 88971-6] Goal Plan of Care Note [code = 05541-6] Goal Plan of Care Note [code = 86740-0] Goal Plan of Care Note [code = 93071-4] Goal Plan of Care Note [code = 58187-7] Goal Plan of Care Note [code = 73742-6] Goal Plan of Care Note [code = 71483-9] Goal Plan of Care Note [code = 75743-0] Goal Plan of Care Note [code = 18791-7] Goal Plan of Care Note [code = 84879-1] Goal Plan of Care Note [code = 58987-1] Goal Plan of Care Note [code = 25353-2] Goal Plan of Care Note [code = 84866-8] Goal Plan of Care Note [code = 51838-7] Goal Plan of Care Note [code = 70691-9] Goal Plan of Care Note [code = 10583-8] Goal Plan of Care Note [code = 58462-9] Goal Plan of Care Note [code = 05132-7] Goal Plan of Care Note [code = 79772-8] Goal Plan of Care Note [code = 88876-9] Goal Plan of Care Note [code = 45352-7] Goal Plan of Care Note [code = 06814-4] Goal Plan of Care Note [code = 44561-6] Goal Plan of Care Note [code = 74655-2] Goal Plan of Care Note [code = 10424-6] Goal Plan of Care Note [code = 14387-6] Goal Plan of Care Note [code = 96599-3] Goal Plan of Care Note [code = 80531-8] Goal Plan of Care Note [code = 15869-6] Goal Plan of Care Note [code = 53583-2] Goal Plan of Care Note [code = 78711-6] Goal Plan of Care Note [code = 60034-7] Goal Plan of Care Note [code = 00506-2] Goal Plan of Care Note [code = 20540-8] Goal Plan of Care Note [code = 81155-5] Goal Plan of Care Note [code = 76784-2] Goal Plan of Care Note [code = 88229-3] Goal Plan of Care Note [code = 39087-5] Goal Plan of Care Note [code = 74288-0] Goal Plan of Care Note [code = 22076-3] Goal Plan of Care Note [code = 04565-7] Goal Plan of Care Note [code = 92967-2] Goal Plan of Care Note [code = 69713-4] Goal Plan of Care Note [code = 33725-1] Encounters Start Date/Time End Date/Time Encounter Type Admission Type Attending [facility] Care Department Encounter ID Source 2024-02-04 16:12:57 2024-02-04 16:12:57 Outpatient [facility] [place] [id number] Augie Sherman 2024-02-04 00:00:00 2024-02-04 00:00:00 Outpatient Visit [facility] [id number] Augie Sherman 2024-01-27 16:08:19 2024-01-27 16:08:19 Outpatient [id number] Augie Sherman 2023-12-23 16:13:03 2023-12-23 16:13:03 Outpatient [facility] [place] [id number] Augie Sherman 2023-10-13 15:11:34 2023-10-13 15:11:34 Outpatient [id number] Augie Sherman 2023-07-05 13:37:50 2023-07-05 13:37:50 Outpatient [facility] [place] [id number] Augie Sherman 2023-04-24 16:35:43 2023-04-24 16:35:43 Outpatient [facility] [place] [id number] Augie Sherman 2023-02-25 08:21:28 2023-02-25 08:21:28 Outpatient [facility] [id number] Augie Sherman 2022-11-09 09:56:52 2022-11-09 09:56:52 Outpatient [facility] [id number] Augie Sherman 2022-09-23 16:10:00 2022-09-23 16:37:00 Emergency Carleen Lemus [facility] [id number] [facility] 2022-09-23 16:10:00 2022-09-23 16:37:00 Emergency X CARLEEN LEMUS [facility] ERT [id number] [facility] 2022-08-21 15:28:31 2022-08-21 15:28:31 Outpatient SFA SFA [id number] 1214 Augie [place] 2022-08-21 00:00:00 2022-08-21 00:00:00 Outpatient Visit [id number] 2022-05-20 00:00:00 2022-05-20 00:00:00 Outpatient Visit [id number] [id number] 00:00:00 2022-05-11 00:00:00 Orders Only Doctor Unassigned, [place] [facility] 1..840.114 350.1.13.10 [id number] [facility] 2022-05-01 00:00:00 2022-05-01 00:00:00 Outpatient Visit [id number] 2022-01-08 17:13:00 2022-01-08 20:38:00 Emergency X Raulito DENNISON [facility] ERT [id number] [facility] 2022-01-08 17:13:00 2022-01-08 20:38:00 Emergency Raulito Dennison [facility] [id number] [facility] 2021-08-31 02:19:00 2021-08-31 03:47:00 Emergency X SARAH CHAVIS [facility] ERT [id number] [facility] 2021-08-31 02:19:00 2021-08-31 03:47:00 Emergency Sarah Chavis [facility] [id number] [facility] 2019-08-08 17:47:33 2019-08-08 21:25:00 Emergency X CHET GAONA [facility] ERT [id number] [facility] Results Test Description Test Time Test Comments Results Result Co mments Source Augie ShermanHEMOGLOBIN [id number] 00:00:00* Test Item Value Reference Range Interpretation Comme nts HEMOGLOBIN A1c (test code = 04754) 5.9 % Augie ShermanCOMPREHENSIVE METABOLIC [id number] 00:00:00* Test Item Value Reference Range Interpretation Comme nts GLUCOSE (test code = 2217) 95 MG/DL BUN (test code = 2208) 17 MG/DL CREATININE (test code = 2214) 1.19 MG/DL eGFR (2020 CKD-EPI) (test co de = 69635) 73 ML/MIN/1.73 CALC BUN/CREAT (test code = 2235) 14 RATIO SODIUM (test code = 2231) 141 MEQ/L POTASSIUM (test code = 2228) 4.0 MEQ/L CHLORIDE (test code = 2215) 104 MEQ/L CARBON DIOXIDE (test code = 2206) 25 MEQ/L CALCIUM (test code = 2209) 9.1 MG/DL PROTEIN, TOTAL (test code = 2229) 7.1 G/DL ALBUMIN (test code = 2201) 4.3 G/DL CALC GLOBULIN (test code = 2240) 2.8 G/DL CALC A/G RATIO (test code = 2234) 1.5 RATIO BILIRUBIN, TOTAL (test code = 2207) 0.4 MG/DL ALKALINE PHOSPHATASE (test code = 2204) 55 U/L AST (test code = 2218) 15 U/L ALT (test code = 2219) 13 U/L [facility] RFL[facility] FT4 AND [id number] 00:00:00* Test Item Value Reference Range Interpretation Comme nts TSH RFLX FT4 AND FT3 (test c ode = 88926) 1.250 UIU/ML Augie ShermanCBC W/AUTO [id number] 00:00:00* Test Item Value Reference Range Interpretation Comme nts WBC (test code = 1001) 4.6 K/UL RBC (test code = 1002) 4.35 M/UL HEMOGLOBIN (test code = 1003) 13.8 G/DL HEMATOCRIT (test code = 1004) 40.7 % MCV (test code = 1005) 93.6 fL MCH (test code = 1006) 31.7 PG MCHC (test code = 1007) 33.9 G/DL RDW (test code = 1038) 12.0 % NEUTROPHILS (test code = 1008) 43.8 % LYMPHOCYTES (test code = 1010) 46.6 % MONOCYTES (test code = 1011) 6.8 % EOSINOPHILS (test code = 1012) 2.0 % BASOPHILS (test code = 1013) 0.4 % IMMATURE GRANULOCYTES (test code = 1036) 0.4 % NUCLEATED RBCS (test code = 1065) 0.0 /100WBC'S PLATELET COUNT (test code = 1015) 159 K/UL ABSOLUTE NEUTROPHILS (test c ode = 1066) 2.00 K/UL ABSOLUTE LYMPHOCYTES (test c ode = 1067) 2.13 K/UL ABSOLUTE MONOCYTES (test cod e = 1068) 0.31 K/UL ABSOLUTE EOSINOPHILS (test c ode = 1040) 0.09 K/UL ABSOLUTE BASOPHILS (test cod e = 1069) 0.02 K/UL ABS IMMATURE GRANULOCYTES (t est code = 1020) 0.02 K/UL ABS NUCLEATED RBCS (test cod e = 28891) 0.00 K/UL Augie ShermanHEMOGLOBIN [id number] 03:28:11* Test Item Value Reference Range Interpretation Comme nts HEMOGLOBIN A1c (test code = 57007) 5.8 % 4.2-5.6 H [employer] GUIDELINES FOR HGB A1C: PREDIABETES/INCREASED RISK . . . . . . . 5.7-6.4% DIAGNOSIS OF DIABETES . . . . . . . . . >=6.5% WITH CONFIRMATION OR APPROPRIATE SYMPTOMS NOTE: ASSAY MAY BE AFFECTED BY HEMOGLOBINOPATHIES (SICKLE CELL ANEMIA, S-C DISEASE, OTHERS) OR ARTIFICIALLY LOWERED BY DECREASED RED CELL SURVIVAL (HEMOLYTIC ANEMIAS, BLOOD LOSS, ETC.). CONSIDER ALTERNATE TESTING OR LABORATORY CONSULTATION. LIPID [id number] 03:08:28* Test Item Value Reference Range Interpretation [...] SPECIMENS. FOR MOREINFORMATION, SEE CLIENT ANNOUNCEMENT AT [email or web address] RISK RATIO LDL/HDL (test code = 2238) 3.09 RATIO <3.55 COMPREHENSIVE METABOLIC [id number] 03:08:28* Test Item Value Reference Range Interpretation Comme nts GLUCOSE (test code = 2217) 92 MG/DL 70-99 BUN (test code = 2208) 15 MG/DL 6-20 CREATININE (test code = 2214) 1.04 MG/DL 0.80-1.40 eGFR (2020 CKD-EPI) (test code = 56867) 87 ML/MIN/1.73 >60 CALC BUN/CREAT (test code = 2235) 14 RATIO 6-28 SODIUM (test code = 223) 141 MEQ/L 133-146 POTASSIUM (test code = 2228) 4.1 MEQ/L 3.5-5.4 CHLORIDE (test code = 2215) 105 MEQ/L 95-107 CARBON DIOXIDE (test code = 2206) 25 MEQ/L 19-31 CALCIUM (test code = 2209) 9.2 MG/DL 8.5-10.5 PROTEIN, TOTAL (test code = 2228) 7.5 G/DL 6.1-8.3 ALBUMIN (test code = 220) 4.4 G/DL 3.5-5.2 CALC GLOBULIN (test code = 2240) 3.1 G/DL 1.9-3.7 CALC A/G RATIO (test code = 2234) 1.4 RATIO 1.0-2.6 BILIRUBIN, TOTAL (test code = 2207) 0.7 MG/DL See_Comment [Automated me ssage] The system which generated this result transmitted reference range: <=1.2. The reference range was not used to interpret this result as normal/abnormal. ALKALINE PHOSPHATASE (test code = 2204) 55 U/L 40-121 AST (test code = 2218) 13 U/L 9-50 ALT (test code = 2219) 13 U/L 5-50 UNLESS OTHERWISE INDICATED, ALL TESTING PERFORMED AT [facility] [address] [place] [address] EMANATIONS ANALYSIS TECHNICIAN: VELVET ARRIAGA M.D. CLIA NUMBER [id number] [facility] [place]. [id number] COMPREHENSIVE METABOLIC [id number] 00:00:00* Test Item Value Reference Range Interpretation Comme nts GLUCOSE (test code = 2217) 92 MG/DL BUN (test code = 2208) 15 MG/DL CREATININE (test code = 2214) 1.04 MG/DL eGFR (2020 CKD-EPI) (test co de = 74668) 87 ML/MIN/1.73 CALC BUN/CREAT (test code = 2235) 14 RATIO SODIUM (test code = 2231) 141 MEQ/L POTASSIUM (test code = 2228) 4.1 MEQ/L CHLORIDE (test code = 2215) 105 MEQ/L CARBON DIOXIDE (test code = 2206) 25 MEQ/L CALCIUM (test code = 2209) 9.2 MG/DL PROTEIN, TOTAL (test code = 2229) 7.5 G/DL ALBUMIN (test code = 2201) 4.4 G/DL CALC GLOBULIN (test code = 2240) 3.1 G/DL CALC A/G RATIO (test code = 2234) 1.4 RATIO BILIRUBIN, TOTAL (test code = 2207) 0.7 MG/DL ALKALINE PHOSPHATASE (test code = 2204) 55 U/L AST (test code = 2218) 13 U/L ALT (test code = 2219) 13 U/L Augie F AustinHEMOGLOBIN [id number] 00:00:00* Test Item Value Reference Range Interpretation Comme nts HEMOGLOBIN A1c (test code = 54015) 5.8 % Augie Bray AustinLIPID [id number] 00:00:00* Test Item Value Reference Range Interpretation Comme nts CHOLESTEROL (test code = 2210) 211 MG/DL TRIGLYCERIDES (test code = 2232) 88 MG/DL HDL CHOLESTEROL (test code = 2220) 47 MG/DL CALC LDL CHOL (test code = 2237) 145 MG/DL RISK RATIO LDL/HDL (test cod e = 2238) 3.09 RATIO Augie ShermanHEMOGLOBIN [id number] 09:04:16* Test Item Value Reference Range Interpretation Comme nts HEMOGLOBIN A1c (test code = 55627) 5.7 % 4.2-5.6 H COMPREHENSIVE METABOLIC [id number] 04:57:20* Test Item Value Reference Range Interpretation Comme nts GLUCOSE (test code = 2217) 92 MG/DL 70-99 BUN (test code = 2208) 14 MG/DL 6-20 CREATININE (test code = 2214) 1.04 MG/DL 0.80-1.40 eGFR (2020 CKD-EPI) (test code = 37478) 87 ML/MIN/1.73 >60 CALC BUN/CREAT (test code = 2235) 13 RATIO 6-28 SODIUM (test code = 2231) 142 MEQ/L 133-146 POTASSIUM (test code = 2228) 4.3 MEQ/L 3.5-5.4 CHLORIDE (test code = 2215) 105 MEQ/L 95-107 CARBON DIOXIDE (test code = 2206) 24 MEQ/L 19-31 CALCIUM (test code = 2209) 9.4 MG/DL 8.5-10.5 PROTEIN, TOTAL (test code = 2229) 7.3 G/DL 6.1-8.3 ALBUMIN (test code = 2201) 4.3 G/DL 3.5-5.2 CALC GLOBULIN (test code = 2240) 3.0 G/DL 1.9-3.7 CALC A/G RATIO (test code = 2234) 1.4 RATIO 1.0-2.6 BILIRUBIN, TOTAL (test code = 2207) 0.7 MG/DL See_Comment [Automated me ssage] The system which generated this result transmitted reference range: <=1.2. The reference range was not used to interpret this result as normal/abnormal. ALKALINE PHOSPHATASE (test code = 2204) 55 U/L 40-118 AST (test code = 2218) 13 U/L 9-50 ALT (test code = 2219) 13 U/L 5-50 LIPID [id number] 04:57:20* Test Item Value Reference Range Interpretation Comme nts CHOLESTEROL (test code = 2210) 205 MG/DL <200 H TRIGLYCERIDES (test code = 2232) 114 MG/DL <150 HDL CHOLESTEROL (test code = 2220) 45 MG/DL >39 CALC LDL CHOL (test code = 2237) 137 MG/DL <100 H NOTE: CALCULATED LDL IS BASED ON BRUCE-ETIENNE METHOD WHICHINCLUDES ADJUSTABLE TRIGLYCERIDE:VLDL CHOLESTEROL RATIO.THIS FACTOR VARIES BY MEASURED TRIGLYCERIDE AND NON-HDLCHOLESTEROL CONCENTRATIONS WITH INCREASED CALCULATED LDL SEENIN HIGHER TRIGLYCERIDE OR LOWER NON-HDL SPECIMENS. FOR MOREINFORMATION, SEE CLIENT ANNOUNCEMENT AT [email or web address] RISK RATIO LDL/HDL (test code = 2238) 3.04 RATIO <3.55 UNLESS OTHERW ISE INDICATED, ALL TESTING [facility] [address] [place] [address] EMANATIONS ANALYSIS TECHNICIAN: OPAL LEIGH M.D. CLIA NUMBER [id number] [facility] [place]. [id number] LIPID [id number] 00:00:00* Test Item Value Reference Range Interpretation Comme nts CHOLESTEROL (test code = 2210) 205 MG/DL TRIGLYCERIDES (test code = 2232) 114 MG/DL HDL CHOLESTEROL (test code = 2220) 45 MG/DL CALC LDL CHOL (test code = 2237) 137 MG/DL RISK RATIO LDL/HDL (test cod e = 2238) 3.04 RATIO Augie F AustinHEMOGLOBIN [id number] 00:00:00* Test Item Value Reference Range Interpretation Comme nts HEMOGLOBIN A1c (test code = 32969) 5.7 % HEMOGLOBIN [id number] 00:00:00* Test Item Value Reference Range Interpretation Comme nts HEMOGLOBIN A1c (test code = 85204) 5.7 % HEMOGLOBIN [id number] 00:00:00* Test Item Value Reference Range Interpretation Comme nts HEMOGLOBIN A1c (test code = 56633) 5.7 % COMPREHENSIVE METABOLIC [id number] 00:00:00* Test Item Value Reference Range Interpretation Comme nts GLUCOSE (test code = 2217) 92 MG/DL BUN (test code = 2208) 14 MG/DL CREATININE (test code = 2214) 1.04 MG/DL eGFR (2020 CKD-EPI) (test co de = 50022) 87 ML/MIN/1.73 CALC BUN/CREAT (test code = [...] code = 2219) 13 U/L COMPREHENSIVE METABOLIC [id number] 00:00:00* Test Item Value Reference Range Interpretation Comme nts GLUCOSE (test code = 2217) 92 MG/DL BUN (test code = 2208) 14 MG/DL CREATININE (test code = 2214) 1.04 MG/DL eGFR (2020 CKD-EPI) (test co de = 19013) 87 ML/MIN/1.73 CALC BUN/CREAT (test code = [...] (test code = 2219) 13 U/L LIPID [id number] 00:00:00* Test Item Value Reference Range Interpretation Comme nts CHOLESTEROL (test code = 2210) 205 MG/DL TRIGLYCERIDES (test code = 2232) 114 MG/DL HDL CHOLESTEROL (test code = 2220) 45 MG/DL CALC LDL CHOL (test code = 2237) 137 MG/DL RISK RATIO LDL/HDL (test cod e = 2238) 3.04 RATIO LIPID [id number] 00:00:00* Test Item Value Reference Range Interpretation Comme nts CHOLESTEROL (test code = 2210) 205 MG/DL TRIGLYCERIDES (test code = 2232) 114 MG/DL HDL CHOLESTEROL (test code = 2220) 45 MG/DL CALC LDL CHOL (test code = 2237) 137 MG/DL RISK RATIO LDL/HDL (test cod e = 2238) 3.04 RATIO HEMOGLOBIN [id number] 00:00:00* Test Item Value Reference Range Interpretation Comme nts HEMOGLOBIN A1c (test code = 93002) 5.7 % Augie Bray LaneCOMPREHENSIVE METABOLIC [id number] 00:00:00* Test Item Value Reference Range Interpretation Comme nts GLUCOSE (test code = 2217) 92 MG/DL BUN (test code = 2208) 14 MG/DL CREATININE (test code = 2214) 1.04 MG/DL eGFR (2020 CKD-EPI) (test co de = 57497) 87 ML/MIN/1.73 CALC BUN/CREAT (test code = [...] ALT (test code = 2219) 13 U/L Augie Pineda, THIRD [id number] 02:00:15* Test Item Value Reference Range Interpretation Comme nts TSH, THIRD GENERATION (test code = 2821) 1.280 UIU/ML 0.400-4.100 PSA, [id number] 02:00:15* Test Item Value Reference Range Interpretation Comme nts PSA, TOTAL (test code = 2606) 0.79 NG/ML See_Comment NOTE: Methodolog y is Analisa Angeli Electrochemiluminescence Immunoassay traceable to WHO reference standard 96/760. [Automated message] The system which generated this result transmitted reference range: <=4.00. The reference range was not used to interpret this result as normal/abnormal. [id number] 00:00:00* Test Item Value Reference Range Interpretation Comme nts TSH, THIRD GENERATION (test code = 2821) 1.280 UIU/ML Augie OlivoA, [id number] 00:00:00* Test Item Value Reference Range Interpretation Comme nts PSA, TOTAL (test code = 2606) 0.79 NG/ML Augie [id number] 00:00:00* Test Item Value Reference Range Interpretation Comme nts TSH, THIRD GENERATION (test code = 2821) 1.280 UIU/ML [id number] 00:00:00* Test Item Value Reference Range Interpretation Comme nts TSH, THIRD GENERATION (test code = 2821) 1.280 UIU/ML [id number] 00:00:00* Test Item Value Reference Range Interpretation Comme nts TSH, THIRD GENERATION (test code = 2821) 1.280 UIU/ML PSA, [id number] 00:00:00* Test Item Value Reference Range Interpretation Comme nts PSA, TOTAL (test code = 2606) 0.79 NG/ML PSA, [id number] 00:00:00* Test Item Value Reference Range Interpretation Comme nts PSA, TOTAL (test code = 2606) 0.79 NG/ML PSA, [id number] 00:00:00* Test Item Value Reference Range Interpretation Comme nts PSA, TOTAL (test code = 2606) 0.79 NG/ML [id number] 00:00:00* Test Item Value Reference Range Interpretation Comme nts TSH, THIRD GENERATION (test code = 2821) 1.280 UIU/ML [id number] 00:00:00* Test Item Value Reference Range Interpretation Comme nts TSH, THIRD GENERATION (test code = 2821) 1.280 UIU/ML [id number] 00:00:00* Test Item Value Reference Range Interpretation Comme nts TSH, THIRD GENERATION (test code = 2821) 1.280 UIU/ML PSA, [id number] 00:00:00* Test Item Value Reference Range Interpretation Comme nts PSA, TOTAL (test code = 2606) 0.79 NG/ML PSA, [id number] 00:00:00* Test Item Value Reference Range Interpretation Comme nts PSA, TOTAL (test code = 2606) 0.79 NG/ML PSA, [id number] 00:00:00* Test Item Value Reference Range Interpretation Comme nts PSA, TOTAL (test code = 2606) 0.79 NG/ML [id number] 00:00:00* Test Item Value Reference Range Interpretation Comme nts TSH, THIRD GENERATION (test code = 2821) 1.280 UIU/ML [id number] 00:00:00* Test Item Value Reference Range Interpretation Comme nts TSH, THIRD GENERATION (test code = 2821) 1.280 UIU/ML [id number] 00:00:00* Test Item Value Reference Range Interpretation Comme nts TSH, THIRD GENERATION (test code = 2821) 1.280 UIU/ML PSA, [id number] 00:00:00* Test Item Value Reference Range Interpretation Comme nts PSA, TOTAL (test code = 2606) 0.79 NG/ML PSA, [id number] 00:00:00* Test Item Value Reference Range Interpretation Comme nts PSA, TOTAL (test code = 2606) 0.79 NG/ML PSA, [id number] 00:00:00* Test Item Value Reference Range Interpretation Comme nts PSA, TOTAL (test code = 2606) 0.79 NG/ML COMPREHENSIVE METABOLIC [id number] 23:58:33* Test Item Value Reference Range Interpretation Comme nts GLUCOSE (test code = 2216) 76 MG/DL 70-99 BUN (test code = 2207) 9 MG/DL 6-20 CREATININE (test code = 2213) 1.05 MG/DL 0.80-1.40 eGFR (2020 CKD-EPI) (test code = 48252) 86 ML/MIN/1.73 >60 CALC BUN/CREAT (test code = 5) 9 RATIO 6-28 SODIUM (test code = [...] 3.5-5.2 CALC GLOBULIN (test code = 2240) 2.9 G/DL 1.9-3.7 CALC A/G RATIO (test code = 2234) 1.5 RATIO 1.0-2.6 BILIRUBIN, TOTAL (test code = 2206) 0.6 MG/DL See_Comment [Automated me ssage] The system which generated this result transmitted reference range: <=1.2. The reference range was not used to interpret this result as normal/abnormal. ALKALINE PHOSPHATASE (test code = 2203) 60 U/L 40-118 AST (test code = 2218) 14 U/L 9-50 ALT (test code = 9) 12 U/L 5-50 LIPID [id number] 23:58:33* Test Item Value Reference Range Interpretation Comme nts CHOLESTEROL (test code = 2210) 187 MG/DL <200 TRIGLYCERIDES (test code = 223) 76 MG/DL <150 HDL CHOLESTEROL (test code = 222) 42 MG/DL >39 CALC LDL CHOL (test code = 2237) 128 MG/DL <100 H NOTE: CALCULATED LDL IS BASED ON BRUCE-ETIENNE METHOD WHICHINCLUDES ADJUSTABLE TRIGLYCERIDE:VLDL CHOLESTEROL RATIO.THIS FACTOR VARIES BY MEASURED TRIGLYCERIDE AND NON-HDLCHOLESTEROL CONCENTRATIONS WITH INCREASED CALCULATED LDL SEENIN HIGHER TRIGLYCERIDE OR LOWER NON-HDL SPECIMENS. FOR MOREINFORMATION, SEE CLIENT ANNOUNCEMENT AT [email or web address] RISK RATIO LDL/HDL (test code = 2238) 3.05 RATIO <3.55 CBC W/AUTO DIFF WITH [id number] 06:40:54* Test Item Value Reference Range Interpretation [...] 0.00-0.10 ABS NUCLEATED RBCS (test code = 60535) 0.00 K/UL 0.00-0.11 COMMENTS (test code = 1016) (NOTE) NO SPECIFIC RBC ABNORMALITIES IDENTIFIED PLATELETS APPEAR NORMAL HEMOGLOBIN [id number] 04:22:49* Test Item Value Reference Range Interpretation Comme nts HEMOGLOBIN A1c (test code = 97330) 5.7 % 4.2-5.6 H UNLESS OTHERWISE INDICATED, ALL TESTING [facility]FOR[facility] [address] [place] [address] EMANATIONS ANALYSIS TECHNICIAN: OPAL LEIGH M.D. CLIA NUMBER [id number] [facility] [place]. [id number] CBC W/AUTO [id number] 00:00:00* Test Item Value Reference Range Interpretation [...] ABS NUCLEATED RBCS (test cod e = 74714) 0.00 K/UL COMMENTS (test code = 1016) (NOTE) uAgie ShermanCOMPREHENSIVE METABOLIC [id number] 00:00:00* Test Item Value Reference Range Interpretation Comme nts GLUCOSE (test code = 2217) 76 MG/DL BUN (test code = 2208) 9 MG/DL CREATININE (test code = 2214) 1.05 MG/DL eGFR (2020 CKD-EPI) (test co de = 22269) 86 ML/MIN/1.73 CALC BUN/CREAT (test code = [...] code = 2219) 12 U/L COMPREHENSIVE METABOLIC [id number] 00:00:00* Test Item Value Reference Range Interpretation Comme nts GLUCOSE (test code = 2217) 76 MG/DL BUN (test code = 2208) 9 MG/DL CREATININE (test code = 2214) 1.05 MG/DL eGFR (2020 CKD-EPI) (test co de = 62850) 86 ML/MIN/1.73 CALC BUN/CREAT (test code = [...] (test code = 2219) 12 U/L LIPID [id number] 00:00:00* Test Item Value Reference Range Interpretation Comme nts CHOLESTEROL (test code = 2210) 187 MG/DL TRIGLYCERIDES (test code = 2232) 76 MG/DL HDL CHOLESTEROL (test code = 2220) 42 MG/DL CALC LDL CHOL (test code = 2237) 128 MG/DL RISK RATIO LDL/HDL (test cod e = 2238) 3.05 RATIO LIPID [id number] 00:00:00* Test Item Value Reference Range Interpretation Comme nts CHOLESTEROL (test code = 2210) 187 MG/DL TRIGLYCERIDES (test code = 2232) 76 MG/DL HDL CHOLESTEROL (test code = 2220) 42 MG/DL CALC LDL CHOL (test code = 2237) 128 MG/DL RISK RATIO LDL/HDL (test cod e = 2238) 3.05 RATIO HEMOGLOBIN [id number] 00:00:00* Test Item Value Reference Range Interpretation Comme nts HEMOGLOBIN A1c (test code = 80037) 5.7 % Augie [facility] W/[facility]O [id number] 00:00:00* Test Item Value Reference Range Interpretation [...] ABS NUCLEATED RBCS (test cod e = 17797) 0.00 K/UL COMMENTS (test code = 1016) (NOTE) CBC W/AUTO [id number] 00:00:00* Test Item Value Reference Range Interpretation [...] ABS NUCLEATED RBCS (test cod e = 36579) 0.00 K/UL COMMENTS (test code = 1016) (NOTE) CBC W/AUTO [id number] 00:00:00* Test Item Value Reference Range Interpretation [...] ABS NUCLEATED RBCS (test cod e = 17126) 0.00 K/UL COMMENTS (test code = 1016) (NOTE) HEMOGLOBIN [id number] 00:00:00* Test Item Value Reference Range Interpretation Comme nts HEMOGLOBIN A1c (test code = 65122) 5.7 % HEMOGLOBIN [id number] 00:00:00* Test Item Value Reference Range Interpretation Comme nts HEMOGLOBIN A1c (test code = 77715) 5.7 % HEMOGLOBIN [id number] 00:00:00* Test Item Value Reference Range Interpretation Comme nts HEMOGLOBIN A1c (test code = 00129) 5.7 % COMPREHENSIVE METABOLIC [id number] 00:00:00* Test Item Value Reference Range Interpretation Comme nts GLUCOSE (test code = 2217) 76 MG/DL BUN (test code = 2208) 9 MG/DL CREATININE (test code = 2214) 1.05 MG/DL eGFR (2020 CKD-EPI) (test co de = 60684) 86 ML/MIN/1.73 CALC BUN/CREAT (test code = [...] code = 2219) 12 U/L COMPREHENSIVE METABOLIC [id number] 00:00:00* Test Item Value Reference Range Interpretation Comme nts GLUCOSE (test code = 2217) 76 MG/DL BUN (test code = 2208) 9 MG/DL CREATININE (test code = 2214) 1.05 MG/DL eGFR (2020 CKD-EPI) (test co de = 31753) 86 ML/MIN/1.73 CALC BUN/CREAT (test code = [...] (test code = 2219) 12 U/L LIPID [id number] 00:00:00* Test Item Value Reference Range Interpretation Comme nts CHOLESTEROL (test code = 2210) 187 MG/DL TRIGLYCERIDES (test code = 2232) 76 MG/DL HDL CHOLESTEROL (test code = 2220) 42 MG/DL CALC LDL CHOL (test code = 2237) 128 MG/DL RISK RATIO LDL/HDL (test cod e = 2238) 3.05 RATIO LIPID [id number] 00:00:00* Test Item Value Reference Range Interpretation Comme nts CHOLESTEROL (test code = 2210) 187 MG/DL TRIGLYCERIDES (test code = 2232) 76 MG/DL HDL CHOLESTEROL (test code = 2220) 42 MG/DL CALC LDL CHOL (test code = 2237) 128 MG/DL RISK RATIO LDL/HDL (test cod e = 2238) 3.05 RATIO CBC W/AUTO [id number] 00:00:00* Test Item Value Reference Range Interpretation [...] ABS NUCLEATED RBCS (test cod e = 56416) 0.00 K/UL COMMENTS (test code = 1016) (NOTE) CBC W/AUTO [id number] 00:00:00* Test Item Value Reference Range Interpretation [...] ABS NUCLEATED RBCS (test cod e = 15708) 0.00 K/UL COMMENTS (test code = 1016) (NOTE) CBC W/AUTO [id number] 00:00:00* Test Item Value Reference Range Interpretation [...] ABS NUCLEATED RBCS (test cod e = 14655) 0.00 K/UL COMMENTS (test code = 1016) (NOTE) HEMOGLOBIN [id number] 00:00:00* Test Item Value Reference Range Interpretation Comme nts HEMOGLOBIN A1c (test code = 63996) 5.7 % HEMOGLOBIN [id number] 00:00:00* Test Item Value Reference Range Interpretation Comme nts HEMOGLOBIN A1c (test code = 85730) 5.7 % HEMOGLOBIN [id number] 00:00:00* Test Item Value Reference Range Interpretation Comme nts HEMOGLOBIN A1c (test code = 34149) 5.7 % COMPREHENSIVE METABOLIC [id number] 00:00:00* Test Item Value Reference Range Interpretation Comme nts GLUCOSE (test code = 2217) 76 MG/DL BUN (test code = 2208) 9 MG/DL CREATININE (test code = 2214) 1.05 MG/DL eGFR (2020 CKD-EPI) (test co de = 16357) 86 ML/MIN/1.73 CALC BUN/CREAT (test code = [...] code = 2219) 12 U/L COMPREHENSIVE METABOLIC [id number] 00:00:00* Test Item Value Reference Range Interpretation Comme nts GLUCOSE (test code = 2217) 76 MG/DL BUN (test code = 2208) 9 MG/DL CREATININE (test code = 2214) 1.05 MG/DL eGFR (2020 CKD-EPI) (test co de = 68455) 86 ML/MIN/1.73 CALC BUN/CREAT (test code = [...] (test code = 2219) 12 U/L LIPID [id number] 00:00:00* Test Item Value Reference Range Interpretation Comme nts CHOLESTEROL (test code = 2210) 187 MG/DL TRIGLYCERIDES (test code = 2232) 76 MG/DL HDL CHOLESTEROL (test code = 2220) 42 MG/DL CALC LDL CHOL (test code = 2237) 128 MG/DL RISK RATIO LDL/HDL (test cod e = 2238) 3.05 RATIO LIPID [id number] 00:00:00* Test Item Value Reference Range Interpretation Comme nts CHOLESTEROL (test code = 2210) 187 MG/DL TRIGLYCERIDES (test code = 2232) 76 MG/DL HDL CHOLESTEROL (test code = 2220) 42 MG/DL CALC LDL CHOL (test code = 2237) 128 MG/DL RISK RATIO LDL/HDL (test cod e = 2238) 3.05 RATIO COMPREHENSIVE METABOLIC [id number] 00:00:00* Test Item Value Reference Range Interpretation Comme nts GLUCOSE (test code = 2217) 76 MG/DL BUN (test code = 2208) 9 MG/DL CREATININE (test code = 2214) 1.05 MG/DL eGFR (2020 CKD-EPI) (test co de = 95530) 86 ML/MIN/1.73 CALC BUN/CREAT (test code = [...] ALT (test code = 2219) 12 U/L Augie ShermanCBC W/AUTO [id number] 00:00:00* Test Item Value Reference Range Interpretation [...] ABS NUCLEATED RBCS (test cod e = 83309) 0.00 K/UL COMMENTS (test code = 1016) (NOTE) CBC W/AUTO [id number] 00:00:00* Test Item Value Reference Range Interpretation [...] ABS NUCLEATED RBCS (test cod e = 67376) 0.00 K/UL COMMENTS (test code = 1016) (NOTE) CBC W/AUTO [id number] 00:00:00* Test Item Value Reference Range Interpretation [...] ABS NUCLEATED RBCS (test cod e = 13279) 0.00 K/UL COMMENTS (test code = 1016) (NOTE) HEMOGLOBIN [id number] 00:00:00* Test Item Value Reference Range Interpretation Comme nts HEMOGLOBIN A1c (test code = 44807) 5.7 % HEMOGLOBIN [id number] 00:00:00* Test Item Value Reference Range Interpretation Comme nts HEMOGLOBIN A1c (test code = 45514) 5.7 % HEMOGLOBIN [id number] 00:00:00* Test Item Value Reference Range Interpretation Comme nts HEMOGLOBIN A1c (test code = 62876) 5.7 % LIPID [id number] 00:00:00* Test Item Value Reference Range Interpretation Comme nts CHOLESTEROL (test code = 2210) 187 MG/DL TRIGLYCERIDES (test code = 2232) 76 MG/DL HDL CHOLESTEROL (test code = 2220) 42 MG/DL CALC LDL CHOL (test code = 2237) 128 MG/DL RISK RATIO LDL/HDL (test cod e = 2238) 3.05 RATIO Augie F AustinLIPID [id number] 00:00:00* Test Item Value Reference Range Interpretation Comme nts CHOLESTEROL (test code = 2210) 214 MG/DL TRIGLYCERIDES (test code = 2232) 144 MG/DL HDL CHOLESTEROL (test code = 2220) 48 MG/DL CALC LDL CHOL (test code = 2237) 139 MG/DL RISK RATIO LDL/HDL (test cod e = 2238) 2.90 RATIO LIPID [id number] 00:00:00* Test Item Value Reference Range Interpretation Comme nts CHOLESTEROL (test code = 2210) 214 MG/DL TRIGLYCERIDES (test code = 2232) 144 MG/DL HDL CHOLESTEROL (test code = 2220) 48 MG/DL CALC LDL CHOL (test code = 2237) 139 MG/DL RISK RATIO LDL/HDL (test cod e = 2238) 2.90 RATIO COMPREHENSIVE METABOLIC [id number] 00:00:00* Test Item Value Reference Range Interpretation Comme nts GLUCOSE (test code = 2217) 71 MG/DL BUN (test code = 2208) 11 MG/DL CREATININE (test code = 2214) 0.99 MG/DL eGFR AMER. (test cod e = 65810) 103 ML/MIN/1.73 eGFR NON- AMER. (test code = 59219) 89 ML/MIN/1.73 CALC BUN/CREAT (test code = [...] code = 2219) 14 U/L COMPREHENSIVE METABOLIC [id number] 00:00:00* Test Item Value Reference Range Interpretation Comme nts GLUCOSE (test code = 2217) 71 MG/DL BUN (test code = 2208) 11 MG/DL CREATININE (test code = 2214) 0.99 MG/DL eGFR AMER. (test cod e = 55328) 103 ML/MIN/1.73 eGFR NON- AMER. (test code = 40352) 89 ML/MIN/1.73 CALC BUN/CREAT (test code = [...] (test code = 2219) 14 U/L LIPID [id number] 00:00:00* Test Item Value Reference Range Interpretation Comme nts CHOLESTEROL (test code = 2210) 214 MG/DL TRIGLYCERIDES (test code = 2232) 144 MG/DL HDL CHOLESTEROL (test code = 2220) 48 MG/DL CALC LDL CHOL (test code = 2237) 139 MG/DL RISK RATIO LDL/HDL (test cod e = 2238) 2.90 RATIO LIPID [id number] 00:00:00* Test Item Value Reference Range Interpretation Comme nts CHOLESTEROL (test code = 2210) 214 MG/DL TRIGLYCERIDES (test code = 2232) 144 MG/DL HDL CHOLESTEROL (test code = 2220) 48 MG/DL CALC LDL CHOL (test code = 2237) 139 MG/DL RISK RATIO LDL/HDL (test cod e = 2238) 2.90 RATIO COMPREHENSIVE METABOLIC [id number] 00:00:00* Test Item Value Reference Range Interpretation Comme nts GLUCOSE (test code = 2217) 71 MG/DL BUN (test code = 2208) 11 MG/DL CREATININE (test code = 2214) 0.99 MG/DL eGFR AMER. (test cod e = 90833) 103 ML/MIN/1.73 eGFR NON- AMER. (test code = 26857) 89 ML/MIN/1.73 CALC BUN/CREAT (test code = [...] code = 2219) 14 U/L COMPREHENSIVE METABOLIC [id number] 00:00:00* Test Item Value Reference Range Interpretation Comme nts GLUCOSE (test code = 2217) 71 MG/DL BUN (test code = 2208) 11 MG/DL CREATININE (test code = 2214) 0.99 MG/DL eGFR AMER. (test cod e = 62954) 103 ML/MIN/1.73 eGFR NON- AMER. (test code = 41613) 89 ML/MIN/1.73 CALC BUN/CREAT (test code = [...] (test code = 2219) 14 U/L LIPID [id number] 00:00:00* Test Item Value Reference Range Interpretation Comme nts CHOLESTEROL (test code = 2210) 214 MG/DL TRIGLYCERIDES (test code = 2232) 144 MG/DL HDL CHOLESTEROL (test code = 2220) 48 MG/DL CALC LDL CHOL (test code = 2237) 139 MG/DL RISK RATIO LDL/HDL (test cod e = 2238) 2.90 RATIO Augie F AustinLIPID [id number] 00:00:00* Test Item Value Reference Range Interpretation Comme nts CHOLESTEROL (test code = 2210) 214 MG/DL TRIGLYCERIDES (test code = 2232) 144 MG/DL HDL CHOLESTEROL (test code = 2220) 48 MG/DL CALC LDL CHOL (test code = 2237) 139 MG/DL RISK RATIO LDL/HDL (test cod e = 2238) 2.90 RATIO LIPID [id number] 00:00:00* Test Item Value Reference Range Interpretation Comme nts CHOLESTEROL (test code = 2210) 214 MG/DL TRIGLYCERIDES (test code = 2232) 144 MG/DL HDL CHOLESTEROL (test code = 2220) 48 MG/DL CALC LDL CHOL (test code = 2237) 139 MG/DL RISK RATIO LDL/HDL (test cod e = 2238) 2.90 RATIO COMPREHENSIVE METABOLIC [id number] 00:00:00* Test Item Value Reference Range Interpretation Comme nts GLUCOSE (test code = 2217) 71 MG/DL BUN (test code = 2208) 11 MG/DL CREATININE (test code = 2214) 0.99 MG/DL eGFR AMER. (test cod e = 76029) 103 ML/MIN/1.73 eGFR NON- AMER. (test code = 84622) 89 ML/MIN/1.73 CALC BUN/CREAT (test code = [...] code = 2219) 14 U/L COMPREHENSIVE METABOLIC [id number] 00:00:00* Test Item Value Reference Range Interpretation Comme nts GLUCOSE (test code = 2217) 71 MG/DL BUN (test code = 2208) 11 MG/DL CREATININE (test code = 2214) 0.99 MG/DL eGFR AMER. (test cod e = 25683) 103 ML/MIN/1.73 eGFR NON- AMER. (test code = 66968) 89 ML/MIN/1.73 CALC BUN/CREAT (test code = [...] code = 2219) 14 U/L COMPREHENSIVE METABOLIC [id number] 00:00:00* Test Item Value Reference Range Interpretation Comme nts GLUCOSE (test code = 2217) 71 MG/DL BUN (test code = 2208) 11 MG/DL CREATININE (test code = 2214) 0.99 MG/DL eGFR AMER. (test cod e = 11614) 103 ML/MIN/1.73 eGFR NON- AMER. (test code = 94030) 89 ML/MIN/1.73 CALC BUN/CREAT (test code = [...] ALT (test code = 2219) 14 U/L Augie ShermanLIPID [id number] 00:00:00* Test Item Value Reference Range Interpretation Comme nts CHOLESTEROL (test code = 2210) 203 MG/DL TRIGLYCERIDES (test code = 2232) 103 MG/DL HDL CHOLESTEROL (test code = 2220) 43 MG/DL CALC LDL CHOL (test code = 2237) 138 MG/DL RISK RATIO LDL/HDL (test cod e = 2238) 3.21 RATIO Augie ShermanCBC W/AUTO [id number] 00:00:00* Test Item Value Reference Range Interpretation [...] ABS NUCLEATED RBCS (test cod e = 18829) 0.00 K/UL CBC W/AUTO [id number] 00:00:00* Test Item Value Reference Range Interpretation [...] ABS NUCLEATED RBCS (test cod e = 20479) 0.00 K/UL CBC W/AUTO [id number] 00:00:00* Test Item Value Reference Range Interpretation [...] ABS NUCLEATED RBCS (test cod e = 92197) 0.00 K/UL COMPREHENSIVE METABOLIC [id number] 00:00:00* Test Item Value Reference Range Interpretation Comme nts GLUCOSE (test code = 2217) 90 MG/DL BUN (test code = 2208) 12 MG/DL CREATININE (test code = 2214) 1.01 MG/DL eGFR AMER. (test cod e = 54021) 101 ML/MIN/1.73 eGFR NON- AMER. (test code = 60604) 87 ML/MIN/1.73 CALC BUN/CREAT (test code = [...] code = 2219) 21 U/L COMPREHENSIVE METABOLIC [id number] 00:00:00* Test Item Value Reference Range Interpretation Comme nts GLUCOSE (test code = 2217) 90 MG/DL BUN (test code = 2208) 12 MG/DL CREATININE (test code = 2214) 1.01 MG/DL eGFR AMER. (test cod e = 40704) 101 ML/MIN/1.73 eGFR NON- AMER. (test code = 27933) 87 ML/MIN/1.73 CALC BUN/CREAT (test code = [...] (test code = 2219) 21 U/L LIPID [id number] 00:00:00* Test Item Value Reference Range Interpretation Comme nts CHOLESTEROL (test code = 2210) 203 MG/DL TRIGLYCERIDES (test code = 2232) 103 MG/DL HDL CHOLESTEROL (test code = 2220) 43 MG/DL CALC LDL CHOL (test code = 2237) 138 MG/DL RISK RATIO LDL/HDL (test cod e = 2238) 3.21 RATIO LIPID [id number] 00:00:00* Test Item Value Reference Range Interpretation Comme nts CHOLESTEROL (test code = 2210) 203 MG/DL TRIGLYCERIDES (test code = 2232) 103 MG/DL HDL CHOLESTEROL (test code = 2220) 43 MG/DL CALC LDL CHOL (test code = 2237) 138 MG/DL RISK RATIO LDL/HDL (test cod e = 2238) 3.21 RATIO CBC W/AUTO [id number] 00:00:00* Test Item Value Reference Range Interpretation [...] ABS NUCLEATED RBCS (test cod e = 49297) 0.00 K/UL CBC W/AUTO [id number] 00:00:00* Test Item Value Reference Range Interpretation [...] ABS NUCLEATED RBCS (test cod e = 85257) 0.00 K/UL CBC W/AUTO [id number] 00:00:00* Test Item Value Reference Range Interpretation [...] ABS NUCLEATED RBCS (test cod e = 48197) 0.00 K/UL COMPREHENSIVE METABOLIC [id number] 00:00:00* Test Item Value Reference Range Interpretation Comme nts GLUCOSE (test code = 2217) 90 MG/DL BUN (test code = 2208) 12 MG/DL CREATININE (test code = 2214) 1.01 MG/DL eGFR AMER. (test cod e = 93691) 101 ML/MIN/1.73 eGFR NON- AMER. (test code = 51610) 87 ML/MIN/1.73 CALC BUN/CREAT (test code = [...] code = 2219) 21 U/L COMPREHENSIVE METABOLIC [id number] 00:00:00* Test Item Value Reference Range Interpretation Comme nts GLUCOSE (test code = 2217) 90 MG/DL BUN (test code = 2208) 12 MG/DL CREATININE (test code = 2214) 1.01 MG/DL eGFR AMER. (test cod e = 44096) 101 ML/MIN/1.73 eGFR NON- AMER. (test code = 66915) 87 ML/MIN/1.73 CALC BUN/CREAT (test code = [...] (test code = 2219) 21 U/L LIPID [id number] 00:00:00* Test Item Value Reference Range Interpretation Comme nts CHOLESTEROL (test code = 2210) 203 MG/DL TRIGLYCERIDES (test code = 2232) 103 MG/DL HDL CHOLESTEROL (test code = 2220) 43 MG/DL CALC LDL CHOL (test code = 2237) 138 MG/DL RISK RATIO LDL/HDL (test cod e = 2238) 3.21 RATIO LIPID [id number] 00:00:00* Test Item Value Reference Range Interpretation Comme nts CHOLESTEROL (test code = 2210) 203 MG/DL TRIGLYCERIDES (test code = 2232) 103 MG/DL HDL CHOLESTEROL (test code = 2220) 43 MG/DL CALC LDL CHOL (test code = 2237) 138 MG/DL RISK RATIO LDL/HDL (test cod e = 2238) 3.21 RATIO CBC W/AUTO [id number] 00:00:00* Test Item Value Reference Range Interpretation [...] ABS NUCLEATED RBCS (test cod e = 78957) 0.00 K/UL CBC W/AUTO [id number] 00:00:00* Test Item Value Reference Range Interpretation [...] ABS NUCLEATED RBCS (test cod e = 03853) 0.00 K/UL CBC W/AUTO [id number] 00:00:00* Test Item Value Reference Range Interpretation [...] ABS NUCLEATED RBCS (test cod e = 90083) 0.00 K/UL COMPREHENSIVE METABOLIC [id number] 00:00:00* Test Item Value Reference Range Interpretation Comme nts GLUCOSE (test code = 2217) 90 MG/DL BUN (test code = 2208) 12 MG/DL CREATININE (test code = 2214) 1.01 MG/DL eGFR AMER. (test cod e = 82519) 101 ML/MIN/1.73 eGFR NON- AMER. (test code = 07040) 87 ML/MIN/1.73 CALC BUN/CREAT (test code = [...] code = 2219) 21 U/L COMPREHENSIVE METABOLIC [id number] 00:00:00* Test Item Value Reference Range Interpretation Comme nts GLUCOSE (test code = 2217) 90 MG/DL BUN (test code = 2208) 12 MG/DL CREATININE (test code = 2214) 1.01 MG/DL eGFR AMER. (test cod e = 00911) 101 ML/MIN/1.73 eGFR NON- AMER. (test code = 54315) 87 ML/MIN/1.73 CALC BUN/CREAT (test code = [...] ALT (test code = 2219) 21 U/L CBC W/AUTO [id number] 00:00:00* Test Item Value Reference Range Interpretation [...] ABS NUCLEATED RBCS (test cod e = 90243) 0.00 K/UL Augie Asa AustinLIPID [id number] 00:00:00* Test Item Value Reference Range Interpretation Comme nts CHOLESTEROL (test code = 2210) 203 MG/DL TRIGLYCERIDES (test code = 2232) 103 MG/DL HDL CHOLESTEROL (test code = 2220) 43 MG/DL CALC LDL CHOL (test code = 2237) 138 MG/DL RISK RATIO LDL/HDL (test cod e = 2238) 3.21 RATIO LIPID [id number] 00:00:00* Test Item Value Reference Range Interpretation Comme nts CHOLESTEROL (test code = 2210) 203 MG/DL TRIGLYCERIDES (test code = 2232) 103 MG/DL HDL CHOLESTEROL (test code = 2220) 43 MG/DL CALC LDL CHOL (test code = 2237) 138 MG/DL RISK RATIO LDL/HDL (test cod e = 2238) 3.21 RATIO COMPREHENSIVE METABOLIC [id number] 00:00:00* Test Item Value Reference Range Interpretation Comme nts GLUCOSE (test code = 2217) 90 MG/DL BUN (test code = 2208) 12 MG/DL CREATININE (test code = 2214) 1.01 MG/DL eGFR AMER. (test cod e = 13503) 101 ML/MIN/1.73 eGFR NON- AMER. (test code = 01185) 87 ML/MIN/1.73 CALC BUN/CREAT (test code = 2235) 12 RATIO SODIUM (test code = 2231) 142 MEQ/L POTASSIUM (test code = 2228) 4.2 MEQ/L CHLORIDE (test code = 2215) 104 MEQ/L CARBON DIOXIDE (test code = 2206) 27 MEQ/L CALCIUM (test code = 2209) 9.2 MG/DL PROTEIN, TOTAL (test code = 222) 7.8 G/DL ALBUMIN (test code = 2201) 4.5 G/DL CALC GLOBULIN (test code = 2240) 3.3 G/DL CALC A/G RATIO (test code = 2234) 1.4 RATIO BILIRUBIN, TOTAL (test code = 2207) 0.6 MG/DL ALKALINE PHOSPHATASE (test code = 2204) 62 U/L AST (test code = 2218) 20 U/L ALT (test code = 2219) 21 U/L Augie ShermanLIPID [id number] 00:00:00* Test Item Value Reference Range Interpretation Comme nts CHOLESTEROL (test code = 2210) 218 MG/DL TRIGLYCERIDES (test code = 2232) 113 MG/DL HDL CHOLESTEROL (test code = 2220) 49 MG/DL CALC LDL CHOL (test code = 2237) 146 MG/DL RISK RATIO LDL/HDL (test cod e = 2238) 2.98 RATIO Augie ShermanHEMOGLOBIN [id number] 00:00:00* Test Item Value Reference Range Interpretation Comme nts HEMOGLOBIN A1c (test code = 69905) 5.7 % HEMOGLOBIN [id number] 00:00:00* Test Item Value Reference Range Interpretation Comme nts HEMOGLOBIN A1c (test code = 49314) 5.7 % HEMOGLOBIN [id number] 00:00:00* Test Item Value Reference Range Interpretation Comme nts HEMOGLOBIN A1c (test code = 50479) 5.7 % COMPREHENSIVE METABOLIC [id number] 00:00:00* Test Item Value Reference Range Interpretation Comme nts GLUCOSE (test code = 2217) 79 MG/DL BUN (test code = 2208) 13 MG/DL CREATININE (test code = 2214) 1.08 MG/DL eGFR AMER. (test cod e = 86902) 94 ML/MIN/1.73 eGFR NON- AMER. (test code = 76299) 81 ML/MIN/1.73 CALC BUN/CREAT (test code = [...] code = 2219) 17 U/L COMPREHENSIVE METABOLIC [id number] 00:00:00* Test Item Value Reference Range Interpretation Comme nts GLUCOSE (test code = 2217) 79 MG/DL BUN (test code = 2208) 13 MG/DL CREATININE (test code = 2214) 1.08 MG/DL eGFR AMER. (test cod e = 67178) 94 ML/MIN/1.73 eGFR NON- AMER. (test code = 77394) 81 ML/MIN/1.73 CALC BUN/CREAT (test code = [...] (test code = 2219) 17 U/L LIPID [id number] 00:00:00* Test Item Value Reference Range Interpretation Comme nts CHOLESTEROL (test code = 2210) 218 MG/DL TRIGLYCERIDES (test code = 2232) 113 MG/DL HDL CHOLESTEROL (test code = 2220) 49 MG/DL CALC LDL CHOL (test code = 2237) 146 MG/DL RISK RATIO LDL/HDL (test cod e = 2238) 2.98 RATIO LIPID [id number] 00:00:00* Test Item Value Reference Range Interpretation Comme nts CHOLESTEROL (test code = 2210) 218 MG/DL TRIGLYCERIDES (test code = 2232) 113 MG/DL HDL CHOLESTEROL (test code = 2220) 49 MG/DL CALC LDL CHOL (test code = 2237) 146 MG/DL RISK RATIO LDL/HDL (test cod e = 2238) 2.98 RATIO HEMOGLOBIN [id number] 00:00:00* Test Item Value Reference Range Interpretation Comme nts HEMOGLOBIN A1c (test code = 15065) 5.7 % HEMOGLOBIN [id number] 00:00:00* Test Item Value Reference Range Interpretation Comme nts HEMOGLOBIN A1c (test code = 42689) 5.7 % HEMOGLOBIN [id number] 00:00:00* Test Item Value Reference Range Interpretation Comme nts HEMOGLOBIN A1c (test code = 21123) 5.7 % Augie F AustinHEMOGLOBIN [id number] 00:00:00* Test Item Value Reference Range Interpretation Comme nts HEMOGLOBIN A1c (test code = 97284) 5.7 % COMPREHENSIVE METABOLIC [id number] 00:00:00* Test Item Value Reference Range Interpretation Comme nts GLUCOSE (test code = 2217) 79 MG/DL BUN (test code = 2208) 13 MG/DL CREATININE (test code = 2214) 1.08 MG/DL eGFR AMER. (test cod e = 40655) 94 ML/MIN/1.73 eGFR NON- AMER. (test code = 09468) 81 ML/MIN/1.73 CALC BUN/CREAT (test code = [...] code = 2219) 17 U/L COMPREHENSIVE METABOLIC [id number] 00:00:00* Test Item Value Reference Range Interpretation Comme nts GLUCOSE (test code = 2217) 79 MG/DL BUN (test code = 2208) 13 MG/DL CREATININE (test code = 2214) 1.08 MG/DL eGFR AMER. (test cod e = 35281) 94 ML/MIN/1.73 eGFR NON- AMER. (test code = 09791) 81 ML/MIN/1.73 CALC BUN/CREAT (test code = [...] (test code = 2219) 17 U/L LIPID [id number] 00:00:00* Test Item Value Reference Range Interpretation Comme nts CHOLESTEROL (test code = 2210) 218 MG/DL TRIGLYCERIDES (test code = 2232) 113 MG/DL HDL CHOLESTEROL (test code = 2220) 49 MG/DL CALC LDL CHOL (test code = 2237) 146 MG/DL RISK RATIO LDL/HDL (test cod e = 2238) 2.98 RATIO LIPID [id number] 00:00:00* Test Item Value Reference Range Interpretation Comme nts CHOLESTEROL (test code = 2210) 218 MG/DL TRIGLYCERIDES (test code = 2232) 113 MG/DL HDL CHOLESTEROL (test code = 2220) 49 MG/DL CALC LDL CHOL (test code = 2237) 146 MG/DL RISK RATIO LDL/HDL (test cod e = 2238) 2.98 RATIO HEMOGLOBIN [id number] 00:00:00* Test Item Value Reference Range Interpretation Comme nts HEMOGLOBIN A1c (test code = 61457) 5.7 % HEMOGLOBIN [id number] 00:00:00* Test Item Value Reference Range Interpretation Comme nts HEMOGLOBIN A1c (test code = 20812) 5.7 % HEMOGLOBIN [id number] 00:00:00* Test Item Value Reference Range Interpretation Comme nts HEMOGLOBIN A1c (test code = 12581) 5.7 % COMPREHENSIVE METABOLIC [id number] 00:00:00* Test Item Value Reference Range Interpretation Comme nts GLUCOSE (test code = 2217) 79 MG/DL BUN (test code = 2208) 13 MG/DL CREATININE (test code = 2214) 1.08 MG/DL eGFR AMER. (test cod e = 44185) 94 ML/MIN/1.73 eGFR NON- AMER. (test code = 01183) 81 ML/MIN/1.73 CALC BUN/CREAT (test code = [...] code = 2219) 17 U/L COMPREHENSIVE METABOLIC [id number] 00:00:00* Test Item Value Reference Range Interpretation Comme nts GLUCOSE (test code = 2217) 79 MG/DL BUN (test code = 2208) 13 MG/DL CREATININE (test code = 2214) 1.08 MG/DL eGFR AMER. (test cod e = 94963) 94 ML/MIN/1.73 eGFR NON- AMER. (test code = 97082) 81 ML/MIN/1.73 CALC BUN/CREAT (test code = [...] (test code = 2219) 17 U/L LIPID [id number] 00:00:00* Test Item Value Reference Range Interpretation Comme nts CHOLESTEROL (test code = 2210) 218 MG/DL TRIGLYCERIDES (test code = 2232) 113 MG/DL HDL CHOLESTEROL (test code = 2220) 49 MG/DL CALC LDL CHOL (test code = 2237) 146 MG/DL RISK RATIO LDL/HDL (test cod e = 2238) 2.98 RATIO LIPID [id number] 00:00:00* Test Item Value Reference Range Interpretation Comme nts CHOLESTEROL (test code = 2210) 218 MG/DL TRIGLYCERIDES (test code = 2232) 113 MG/DL HDL CHOLESTEROL (test code = 2220) 49 MG/DL CALC LDL CHOL (test code = 2237) 146 MG/DL RISK RATIO LDL/HDL (test cod e = 2238) 2.98 RATIO COMPREHENSIVE METABOLIC [id number] 00:00:00* Test Item Value Reference Range Interpretation Comme nts GLUCOSE (test code = 2217) 79 MG/DL BUN (test code = 2208) 13 MG/DL CREATININE (test code = 2214) 1.08 MG/DL eGFR AMER. (test cod e = 84416) 94 ML/MIN/1.73 eGFR NON- AMER. (test code = 87957) 81 ML/MIN/1.73 CALC BUN/CREAT (test code = [...] ALT (test code = 2219) 17 U/L Augie F AustinSMITH AND POULTRY FARMER MEAT [id number] 00:00:00* Test Item Value Reference Range Interpretation Comme nts PACHECO (Sm) ANTIBODY (test co de = 65767) <0.2 AI P[employer] MEAT ANTIBODY (test code = 55200) <0.2 AI PACHECO AND P[employer] MEAT [id number] 00:00:00* Test Item Value Reference Range Interpretation Comme nts PACHECO (Sm) ANTIBODY (test co de = 51193) <0.2 AI P[employer] MEAT ANTIBODY (test code = 14496) <0.2 AI PACHE[employer] AND POULTRY FARMER MEAT [id number] 00:00:00* Test Item Value Reference Range Interpretation Comme nts PACHECO (Sm) ANTIBODY (test co de = 09156) <0.2 AI P[employer] MEAT ANTIBODY (test code = 22748) <0.2 AI PACHE[employer] AND P[employer] MEAT [id number] 00:00:00* Test Item Value Reference Range Interpretation Comme nts PACHECO (Sm) ANTIBODY (test co de = 10819) <0.2 AI [employer] MEAT ANTIBODY (test code = 50125) <0.2 AI [employer]HE[employer] AND POULTRY F[employer]ER MEAT [id number] 00:00:00* Test Item Value Reference Range Interpretation Comme nts PACHECO (Sm) ANTIBODY (test co de = 14558) <0.2 AI [employer] MEAT ANTIBODY (test code = 59589) <0.2 AI [employer]HE[employer] AND P[employer] F[employer] MEAT [id number] 00:00:00* Test Item Value Reference Range Interpretation Comme nts PACHECO (Sm) ANTIBODY (test co de = 08917) <0.2 AI P[employer] MEAT ANTIBODY (test code = 75509) <0.2 AI Augie ShermanSMITH AND POULTRY FARMER MEAT [id number] 00:00:00* Test Item Value Reference Range Interpretation Comme nts PACHECO (Sm) ANTIBODY (test co de = 04043) <0.2 AI [employer] MEAT ANTIBODY (test code = 16947) <0.2 AI SEROTONIN, [id number] 00:00:00* Test Item Value Reference Range Interpretation Comme nts SEROTONIN, SERUM (test code = 4258) 81 ng/mL SEROTONIN, [id number] 00:00:00* Test Item Value Reference Range Interpretation Comme nts SEROTONIN, SERUM (test code = 4258) 81 ng/mL SEROTONIN, [id number] 00:00:00* Test Item Value Reference Range Interpretation Comme nts SEROTONIN, SERUM (test code = 4258) 81 ng/mL SEROTONIN, [id number] 00:00:00* Test Item Value Reference Range Interpretation Comme nts SEROTONIN, SERUM (test code = 4258) 81 ng/mL Augie Asa NevaNIN, [id number] 00:00:00* Test Item Value Reference Range Interpretation Comme nts SEROTONIN, SERUM (test code = 4258) 81 ng/mL SEROTONIN, [id number] 00:00:00* Test Item Value Reference Range Interpretation Comme nts SEROTONIN, SERUM (test code = 4258) 81 ng/mL SEROTONIN, [id number] 00:00:00* Test Item Value Reference Range Interpretation Comme nts SEROTONIN, SERUM (test code = 4258) 81 ng/mL DNA DS [id number] 00:00:00* Test Item Value Reference Range Interpretation Comme nts dsDNA ANTIBODY (test code = 4287) 1.0 IU/ML Augie ShermanDNA DS [id number] 00:00:00* Test Item Value Reference Range Interpretation Comme nts dsDNA ANTIBODY (test code = 4287) 1.0 IU/ML DNA DS [id number] 00:00:00* Test Item Value Reference Range Interpretation Comme nts dsDNA ANTIBODY (test code = 4287) 1.0 IU/ML DNA DS [id number] 00:00:00* Test Item Value Reference Range Interpretation Comme nts dsDNA ANTIBODY (test code = 4287) 1.0 IU/ML DNA DS [id number] 00:00:00* Test Item Value Reference Range Interpretation Comme nts dsDNA ANTIBODY (test code = 4287) 1.0 IU/ML DNA DS [id number] 00:00:00* Test Item Value Reference Range Interpretation Comme nts dsDNA ANTIBODY (test code = 4287) 1.0 IU/ML DNA DS [id number] 00:00:00* Test Item Value Reference Range Interpretation Comme nts dsDNA ANTIBODY (test code = 4287) 1.0 IU/ML ACUTE HEPATITIS [id number] 00:00:00* Test Item Value Reference Range Interpretation Comme nts HEPATITIS A IgM (test code = 64610) NON-REACTIVE HEPATITIS B CORE IgM (test c ode = 4644) NON-REACTIVE HEPATITIS B SURF AG (test co de = 2739) NON-REACTIVE HEPATITIS C ANTIBODY (test c ode = 4675) NON-REACTIVE HCV INDEX (test code = 59460) 0.10 INTERPRETATION HEPATITIS A: (test code = 2552) (NOTE) INTERPRETATION HEPATITIS B: (test code = 96649) (NOTE) INTERPRETATION HEPATITIS C: (test code = 28807) (NOTE) Augie F LaneACUTE HEPATITIS [id number] 00:00:00* Test Item Value Reference Range Interpretation Comme nts HEPATITIS A IgM (test code = 12805) NON-REACTIVE HEPATITIS B CORE IgM (test c ode = 4644) NON-REACTIVE HEPATITIS B SURF AG (test co de = 2739) NON-REACTIVE HEPATITIS C ANTIBODY (test c ode = 4675) NON-REACTIVE HCV INDEX (test code = 02221) 0.10 INTERPRETATION HEPATITIS A: (test code = 2552) (NOTE) INTERPRETATION HEPATITIS B: (test code = 12352) (NOTE) INTERPRETATION HEPATITIS C: (test code = 40621) (NOTE) ACUTE HEPATITIS [id number] 00:00:00* Test Item Value Reference Range Interpretation Comme nts HEPATITIS A IgM (test code = 80299) NON-REACTIVE HEPATITIS B CORE IgM (test c ode = 4644) NON-REACTIVE HEPATITIS B SURF AG (test co de = 2739) NON-REACTIVE HEPATITIS C ANTIBODY (test c ode = 4675) NON-REACTIVE HCV INDEX (test code = 96358) 0.10 INTERPRETATION HEPATITIS A: (test code = 2552) (NOTE) INTERPRETATION HEPATITIS B: (test code = 15252) (NOTE) INTERPRETATION HEPATITIS C: (test code = 72375) (NOTE) ACUTE HEPATITIS [id number] 00:00:00* Test Item Value Reference Range Interpretation Comme nts HEPATITIS A IgM (test code = 49724) NON-REACTIVE HEPATITIS B CORE IgM (test c ode = 4644) NON-REACTIVE HEPATITIS B SURF AG (test co de = 2739) NON-REACTIVE HEPATITIS C ANTIBODY (test c ode = 4675) NON-REACTIVE HCV INDEX (test code = 18292) 0.10 INTERPRETATION HEPATITIS A: (test code = 2552) (NOTE) INTERPRETATION HEPATITIS B: (test code = 74413) (NOTE) INTERPRETATION HEPATITIS C: (test code = 04453) (NOTE) ACUTE HEPATITIS [id number] 00:00:00* Test Item Value Reference Range Interpretation Comme nts HEPATITIS A IgM (test code = 34999) NON-REACTIVE HEPATITIS B CORE IgM (test c ode = 4644) NON-REACTIVE HEPATITIS B SURF AG (test co de = 2739) NON-REACTIVE HEPATITIS C ANTIBODY (test c ode = 4675) NON-REACTIVE HCV INDEX (test code = 36162) 0.10 INTERPRETATION HEPATITIS A: (test code = 2552) (NOTE) INTERPRETATION HEPATITIS B: (test code = 04537) (NOTE) INTERPRETATION HEPATITIS C: (test code = 68459) (NOTE) ACUTE HEPATITIS [id number] 00:00:00* Test Item Value Reference Range Interpretation Comme nts HEPATITIS A IgM (test code = 50079) NON-REACTIVE HEPATITIS B CORE IgM (test c ode = 4644) NON-REACTIVE HEPATITIS B SURF AG (test co de = 2739) NON-REACTIVE HEPATITIS C ANTIBODY (test c ode = 4675) NON-REACTIVE HCV INDEX (test code = 97957) 0.10 INTERPRETATION HEPATITIS A: (test code = 2552) (NOTE) INTERPRETATION HEPATITIS B: (test code = 10166) (NOTE) INTERPRETATION HEPATITIS C: (test code = 56928) (NOTE) ACUTE HEPATITIS [id number] 00:00:00* Test Item Value Reference Range Interpretation Comme nts HEPATITIS A IgM (test code = 67320) NON-REACTIVE HEPATITIS B CORE IgM (test c ode = 4644) NON-REACTIVE HEPATITIS B SURF AG (test co de = 2739) NON-REACTIVE HEPATITIS C ANTIBODY (test c ode = 4675) NON-REACTIVE HCV INDEX (test code = 23611) 0.10 INTERPRETATION HEPATITIS A: (test code = 2552) (NOTE) INTERPRETATION HEPATITIS B: (test code = 38182) (NOTE) INTERPRETATION HEPATITIS C: (test code = 13466) (NOTE) GC, AMPLIFIED, [id number] 00:00:00* Test Item Value Reference Range Interpretation Comme nts GONORRHEA, TMA (test code = 33946) NEGATIVE MOOSE NON-REFLEX TO [id number] 00:00:00* Test Item Value Reference Range Interpretation Comme nts ANTI-NUCLEAR ANTIBODIES (homero t code = 3506) POSITIVE Augie ShermanGC, AMPLIFIED, [id number] 00:00:00* Test Item Value Reference Range Interpretation Comme nts GONORRHEA, TMA (test code = 44397) NEGATIVE CHLAMYDIA, AMPLIFIED, [id number] 00:00:00* Test Item Value Reference Range Interpretation Comme nts CHLAMYDIA, TMA (test code = 31474) NEGATIVE CHLAMYDIA, AMPLIFIED, [id number] 00:00:00* Test Item Value Reference Range Interpretation Comme nts CHLAMYDIA, TMA (test code = 94226) NEGATIVE MOOSE NON-REFLEX TO [id number] 00:00:00* Test Item Value Reference Range Interpretation Comme nts ANTI-NUCLEAR ANTIBODIES (homero t code = 3506) POSITIVE MOOSE NON-REFLEX TO [id number] 00:00:00* Test Item Value Reference Range Interpretation Comme nts ANTI-NUCLEAR ANTIBODIES (homero t code = 3506) POSITIVE GC, AMPLIFIED, [id number] 00:00:00* Test Item Value Reference Range Interpretation Comme nts GONORRHEA, TMA (test code = 22568) NEGATIVE GC, AMPLIFIED, [id number] 00:00:00* Test Item Value Reference Range Interpretation Comme nts GONORRHEA, TMA (test code = 73255) NEGATIVE CHLAMYDIA, AMPLIFIED, [id number] 00:00:00* Test Item Value Reference Range Interpretation Comme nts CHLAMYDIA, TMA (test code = 93315) NEGATIVE GC, AMPLIFIED, [id number] 00:00:00* Test Item Value Reference Range Interpretation Comme nts GONORRHEA, TMA (test code = 77966) NEGATIVE Augie F AustinCHLAMYDIA, AMPLIFIED, [id number] 00:00:00* Test Item Value Reference Range Interpretation Comme nts CHLAMYDIA, TMA (test code = 22929) NEGATIVE MOOSE NON-REFLEX TO [id number] 00:00:00* Test Item Value Reference Range Interpretation Comme nts ANTI-NUCLEAR ANTIBODIES (homero t code = 3506) POSITIVE MOOSE NON-REFLEX TO [id number] 00:00:00* Test Item Value Reference Range Interpretation Comme nts ANTI-NUCLEAR ANTIBODIES (homero t code = 3506) POSITIVE GC, AMPLIFIED, [id number] 00:00:00* Test Item Value Reference Range Interpretation Comme nts GONORRHEA, TMA (test code = 01356) NEGATIVE GC, AMPLIFIED, [id number] 00:00:00* Test Item Value Reference Range Interpretation Comme nts GONORRHEA, TMA (test code = 13083) NEGATIVE CHLAMYDIA, AMPLIFIED, [id number] 00:00:00* Test Item Value Reference Range Interpretation Comme nts CHLAMYDIA, TMA (test code = 98471) NEGATIVE CHLAMYDIA, AMPLIFIED, [id number] 00:00:00* Test Item Value Reference Range Interpretation Comme nts CHLAMYDIA, TMA (test code = 79381) NEGATIVE MOOSE NON-REFLEX TO [id number] 00:00:00* Test Item Value Reference Range Interpretation Comme nts ANTI-NUCLEAR ANTIBODIES (homero t code = 3506) POSITIVE MOOSE NON-REFLEX TO [id number] 00:00:00* Test Item Value Reference Range Interpretation Comme nts ANTI-NUCLEAR ANTIBODIES (homero t code = 3506) POSITIVE CHLAMYDIA, AMPLIFIED, [id number] 00:00:00* Test Item Value Reference Range Interpretation Comme nts CHLAMYDIA, TMA (test code = 70528) NEGATIVE Augie Sherman Notes Date/Time Note Provider Source Augie Sherman [facility]
--- NOTE | 2024-04-27 18:01 | EKG ---
Test Date: 2024-04-22 Test Time: 20:57:28 Multimedia Programmer: BETSY MEASUREMENT RESULTS: Intervals: Rate: 62 MT: 182 QRSD: 98 QT: 374 QTc: 379 [place]: P: 42 MT: 182 QRS: 78 T: 42 INTERPRETIVE STATEMENTS: Normal sinus rhythm Anterior infarct, age undetermined Abnormal ECG Compared to ECG 09/29/2023 11:26:13 Ventricular premature complex(es) no longer present Myocardial infarct finding still present Electronically Signed On 04-27-24 17:51:39 CDT by Reggie Maier
== END 2024-04-22 23:30 | disposition home or self-care (01) ==
LOC: ER 20:21
DX: R07.89 Other chest pain (principal); I11.0 Hypertensive heart disease with heart failure; I50.9 Heart failure, unspecified; I34.1 Nonrheumatic mitral (valve) prolapse; Z95.810 Presence of automatic (implantable) cardiac defibrillator; Z88.5 Allergy status to narcotic agent
CPT/HCPCS: 36415; 71045; 80048; 80076; 82550; 83735; 83880; 84484; 85025; 85610; 93005; 99284